=== PATIENT | female | born 1945 | race Caucasian/White ===

== ENCOUNTER → 2020-02-10 13:12 | Outpatient (BNVA) | payer MEDICARE, SELFPAY | PROVIDERS: PCP Internal Medicine; Referring Provider Internal Medicine; Visit Provider Internal Medicine Cardiovascular Disease | DX: I10 Essential (primary) hypertension (principal); Z79.899 Other long term (current) drug therapy | CPT/HCPCS: 99213 ==

== ENCOUNTER 2020-03-06 08:02 | Outpatient (REF) | payer MEDICARE, SELFPAY ==
[2020-03-06 09:41] LABS: Imm Gran Abs Auto 0.02 X10*3/uL (0.00-0.03); Imm Gran Pct Auto 0.3 % (0.0-0.4); MANUAL DIFF FLAG SCAN; Monocytes Percent Auto 8.5 % (2-11); SCAN SMEAR FLAG 1
[2020-03-06 09:43] LABS: Basophils Absolute Auto 0.1 X10*3/uL (0.0-0.2); Eosinophils Absolute Auto 0.2 X10*3/uL (0.0-0.4); Eosinophils Percent Auto 3.2 % (0-4); Hematocrit 39.9 % (37-47); Hemoglobin 12.4 g/dl (12.0-16.0); Lymphocytes Absolute Auto 2.3 X10*3/uL (1.2-4.9); Lymphocytes Percent Auto 33.2 % (20-40); Mean Corpuscular HGB Conc 31.1 g/dl (31.0-35.0); Mean Corpuscular Hemoglobin 29.9 pg (27.0-33.0); Mean Corpuscular Volume 96.1 fL (80-98); Mean Platelet Volume 14.3 fL (9.4-12.3); Monocytes Absolute Auto 0.6 X10*3/uL (0.1-1.2); Neutrophils Absolute Auto 3.8 X10*3/uL (2.0-8.3); Neutrophils Percent Auto 53.8 % (45-73); Platelet Count 121 X10*3/uL (160-400); Red Blood Count 4.15 X10*6/uL (4.20-5.50); Red Cell Distribution Width 12.2 % (11.0-16.0)
[2020-03-06 09:46] LABS: Estimated Average Glucose 154 mg/dL
[2020-03-06 10:02] LABS: PLT ABN DIST 1
[2020-03-06 10:12] LABS: Alanine Aminotransferase 35 U/L (0-31); Albumin Level 4.2 g/dL (3.5-5.0); Alkaline Phosphatase 102 U/L (39-117); Anion Gap 10 (12-20); Aspartate Amino Transferase 32 U/L (5-31); Blood Urea Nitrogen 22 mg/dL (9-16); Calcium 9.2 mg/dL (8.4-10.2); Carbon Dioxide 28 mmol/L (22-29); Chloride 107 mmol/L (96-108); Cholesterol 124 mg/dL; Estimated Glomerular Filt Rate > 60; Glucose Fasting 146 mg/dL (60-99); HDL Cholesterol 55 mg/dL; LDL Cholesterol Calculated 55 mg/dl; Potassium 4.5 mmol/l (3.3-5.1); Sodium 140 mmol/L (135-145); Triglycerides 73 mg/dL
[2020-03-06 10:19] LABS: SLIDE REVIEW VERIFIED
[2020-03-06 10:33] LABS: Vitamin D 25-OH Total 42.1 ng/mL (>30)
[2020-03-06 10:52] LABS: Glucose Urine UA NEG (NEG); Leukocyte Esterase Urine NEG (NEG); Nitrite Urine NEG (NEG); Specific Gravity - Urine >= 1.030 (1.005-1.025); Urine Blood NEG (NEG); Urine Ketones NEG (NEG); Urine Protein NEG (NEG-TRACE)
[2020-03-06 10:58] LABS: Appearance Urine HAZY; Color Urine YELLOW
[2020-03-06 11:19] LABS: Creatinine Urine 166.14 mg/dL; Microalbum/Creatinine Ratio Ur 4.8 ug/mg cr
[2020-03-06 11:21] LABS: Mucus Urine 1+ /LPF; RBC Urine 0 /HPF (0); Squamous Epithelial Cell Urine 2+ /LPF; WBC Urine 0-2 /HPF (0-4)
== END 2020-03-06 08:03 | disposition home or self-care (01) ==
LOC: HO.LAB 08:02
PROVIDERS: Visit Provider Internal Medicine
DX: E78.5 Hyperlipidemia, unspecified (principal); I10 Essential (primary) hypertension; E11.9 Type 2 diabetes mellitus without complications; I21.4 Non-ST elevation (NSTEMI) myocardial infarction; K29.70 Gastritis, unspecified, without bleeding; D69.6 Thrombocytopenia, unspecified; E55.9 Vitamin D deficiency, unspecified; E66.3 Overweight
CPT/HCPCS: 36415; 80053; 80061; 81001; 82043; 82306; 83036; 84443; 85025

== ENCOUNTER → 2020-06-15 09:30 | Outpatient (BNVA) | payer MEDICARE, SELFPAY | PROVIDERS: PCP Internal Medicine; Visit Provider Internal Medicine Cardiovascular Disease | DX: I10 Essential (primary) hypertension (principal) | CPT/HCPCS: 99212 ==

== ENCOUNTER 2020-07-08 08:35 | Outpatient (REF) | payer MEDICARE, SELFPAY ==
[2020-07-08 09:06] LABS: MANUAL DIFF FLAG NO
[2020-07-08 09:10] LABS: Basophils Absolute Auto 0.1 X10*3/uL (0.0-0.2); Basophils Percent Auto 0.9 % (0-2); Eosinophils Absolute Auto 0.3 X10*3/uL (0.0-0.4); Eosinophils Percent Auto 3.6 % (0-4); Hematocrit 39.7 % (37-47); Hemoglobin 12.1 g/dl (12.0-16.0); Imm Gran Abs Auto 0.02 X10*3/uL (0.00-0.03); Imm Gran Pct Auto 0.3 % (0.0-0.4); Lymphocytes Absolute Auto 2.1 X10*3/uL (1.2-4.9); Lymphocytes Percent Auto 26.9 % (20-40); Mean Corpuscular HGB Conc 30.5 g/dl (31.0-35.0); Mean Corpuscular Hemoglobin 29.6 pg (27.0-33.0); Mean Corpuscular Volume 97.1 fL (80-98); Mean Platelet Volume 13.8 fL (9.4-12.3); Monocytes Absolute Auto 0.6 X10*3/uL (0.1-1.2); Monocytes Percent Auto 7.6 % (2-11); Neutrophils Absolute Auto 4.7 X10*3/uL (2.0-8.3); Neutrophils Percent Auto 60.7 % (45-73); Platelet Count 120 X10*3/uL (160-400); Red Blood Count 4.09 X10*6/uL (4.20-5.50); White Blood Count 7.8 X10*3/uL (4.8-10.8)
[2020-07-08 09:33] LABS: Alanine Aminotransferase 33 U/L (0-31); Albumin Level 4.1 g/dL (3.5-5.0); Alkaline Phosphatase 97 U/L (39-117); Anion Gap 10 (12-20); Aspartate Amino Transferase 29 U/L (5-31); Bilirubin Total 1.1 mg/dL (0.0-1.0); Blood Urea Nitrogen 19 mg/dL (9-16); Calcium 9.1 mg/dL (8.4-10.2); Carbon Dioxide 28 mmol/L (22-29); Chloride 107 mmol/L (96-108); Cholesterol 118 mg/dL; Estimated Glomerular Filt Rate > 60; Glucose Fasting 172 mg/dL (60-99); HDL Cholesterol 51 mg/dL; LDL Cholesterol Calculated 50 mg/dl; Sodium 140 mmol/L (135-145); Total Protein 6.8 g/dL (6.5-8.0); Triglycerides 89 mg/dL
[2020-07-08 09:53] LABS: TSH reflex Free T4 1.63 uIU/mL (0.32-4.0); Vitamin D 25-OH Total 39.2 ng/mL (>30)
[2020-07-08 10:00] LABS: Glucose Urine UA NEG (NEG); Leukocyte Esterase Urine NEG (NEG); Nitrite Urine NEG (NEG); Specific Gravity - Urine >= 1.030 (1.005-1.025); Urine Blood NEG (NEG); Urine Ketones NEG (NEG); Urine Protein NEG (NEG-TRACE)
[2020-07-08 10:04] LABS: Appearance Urine CLEAR; Color Urine YELLOW
[2020-07-08 10:32] LABS: Creatinine Urine 158.71 mg/dL; Microalbum/Creatinine Ratio Ur 5.6 ug/mg cr
== END 2020-07-08 08:36 | disposition home or self-care (01) ==
LOC: HO.LAB 08:35
PROVIDERS: PCP Internal Medicine; Visit Provider Internal Medicine
DX: D69.6 Thrombocytopenia, unspecified (principal); I10 Essential (primary) hypertension; K29.70 Gastritis, unspecified, without bleeding; E78.00 Pure hypercholesterolemia, unspecified; I21.4 Non-ST elevation (NSTEMI) myocardial infarction; E55.9 Vitamin D deficiency, unspecified; E11.9 Type 2 diabetes mellitus without complications; E66.3 Overweight
CPT/HCPCS: 36415; 80053; 80061; 81003; 82043; 82306; 84443; 85025

== ENCOUNTER → 2020-08-17 13:51 | Outpatient (BNVA) | payer MEDICARE, SELFPAY | PROVIDERS: PCP Internal Medicine; Visit Provider Internal Medicine Cardiovascular Disease | DX: I10 Essential (primary) hypertension (principal) | CPT/HCPCS: 99212 ==

== ENCOUNTER → 2020-09-10 15:19 | Outpatient (BNVA) | payer MEDICARE, SELFPAY | PROVIDERS: PCP Internal Medicine; Visit Provider Internal Medicine Cardiovascular Disease | DX: I10 Essential (primary) hypertension (principal) | CPT/HCPCS: 99212 ==

== ENCOUNTER 2020-11-06 08:03 | Outpatient (REF) | payer MEDICARE, SELFPAY ==
[2020-11-06 09:20] LABS: Imm Gran Abs Auto 0.02 X10*3/uL (0.00-0.03); Imm Gran Pct Auto 0.3 % (0.0-0.4); MANUAL DIFF FLAG SCAN; Red Cell Distribution Width 12.2 % (11.0-16.0); SCAN SMEAR FLAG 1
[2020-11-06 09:21] LABS: Basophils Absolute Auto 0.1 X10*3/uL (0.0-0.2); Basophils Percent Auto 0.8 % (0-2); Eosinophils Absolute Auto 0.2 X10*3/uL (0.0-0.4); Eosinophils Percent Auto 2.8 % (0-4); Hematocrit 38.6 % (37-47); Lymphocytes Absolute Auto 1.9 X10*3/uL (1.2-4.9); Lymphocytes Percent Auto 26.1 % (20-40); Mean Corpuscular HGB Conc 31.1 g/dl (31.0-35.0); Mean Corpuscular Hemoglobin 29.8 pg (27.0-33.0); Mean Corpuscular Volume 95.8 fL (80-98); Monocytes Absolute Auto 0.6 X10*3/uL (0.1-1.2); Monocytes Percent Auto 8.1 % (2-11); Neutrophils Absolute Auto 4.4 X10*3/uL (2.0-8.3); Neutrophils Percent Auto 61.9 % (45-73); Platelet Count 117 X10*3/uL (160-400); Red Blood Count 4.03 X10*6/uL (4.20-5.50); White Blood Count 7.2 X10*3/uL (4.8-10.8)
[2020-11-06 09:22] LABS: PLT ABN DIST 1
[2020-11-06 09:27] LABS: Estimated Average Glucose 171 mg/dL; Hemoglobin A1c % 7.6 %
[2020-11-06 09:41] LABS: Alanine Aminotransferase 33 U/L (0-31); Albumin Level 4.1 g/dL (3.5-5.0); Alkaline Phosphatase 94 U/L (39-117); Anion Gap 11 (12-20); Aspartate Amino Transferase 27 U/L (5-31); Bilirubin Total 1.1 mg/dL (0.0-1.0); Blood Urea Nitrogen 13 mg/dL (9-16); Calcium 9.3 mg/dL (8.4-10.2); Carbon Dioxide 24 mmol/L (22-29); Chloride 110 mmol/L (96-108); Cholesterol 118 mg/dL; Estimated Glomerular Filt Rate > 60; Glucose Fasting 187 mg/dL (60-99); HDL Cholesterol 50 mg/dL; LDL Cholesterol Calculated 51 mg/dl; Potassium 4.4 mmol/L (3.3-5.1); Sodium 141 mmol/L (135-145); Total Protein 6.9 g/dL (6.5-8.0); Triglycerides 85 mg/dL
[2020-11-06 09:51] LABS: Color Urine YELLOW; Glucose Urine UA NEG (NEG); Leukocyte Esterase Urine NEG (NEG); Nitrite Urine NEG (NEG); PH 5.5 (5.0-8.0); Specific Gravity - Urine >= 1.030 (1.005-1.025); Urine Blood NEG (NEG); Urine Ketones NEG (NEG); Urine Protein NEG (NEG-TRACE)
[2020-11-06 09:52] LABS: SLIDE REVIEW VERIFIED
[2020-11-06 09:52] LABS: Appearance Urine HAZY
[2020-11-06 10:02] LABS: TSH reflex Free T4 1.43 uIU/mL (0.32-4.0); Vitamin D 25-OH Total 30.3 ng/mL (>30)
== END 2020-11-06 08:04 | disposition home or self-care (01) ==
LOC: HO.LAB 08:03
PROVIDERS: PCP Internal Medicine; Visit Provider Internal Medicine
DX: E11.9 Type 2 diabetes mellitus without complications (principal); E78.00 Pure hypercholesterolemia, unspecified; I10 Essential (primary) hypertension; E55.9 Vitamin D deficiency, unspecified; E66.3 Overweight; D69.6 Thrombocytopenia, unspecified; K29.70 Gastritis, unspecified, without bleeding; I21.4 Non-ST elevation (NSTEMI) myocardial infarction
CPT/HCPCS: 36415; 80053; 80061; 81003; 82306; 83036; 84443; 85025

== ENCOUNTER → 2021-01-18 14:27 | Outpatient (BNVA) | payer MEDICARE, SELFPAY | PROVIDERS: PCP Internal Medicine; Referring Provider Internal Medicine; Visit Provider Internal Medicine Cardiovascular Disease | DX: I10 Essential (primary) hypertension (principal) | CPT/HCPCS: 93005; 99212 ==

== ENCOUNTER 2021-01-22 08:41 | Outpatient (REF) | payer MEDICARE, SELFPAY ==
--- NOTE | ~2021-01-22 | MM_ITS ---
EXAMINATION: BONE DENSITOMETRY CLINICAL INDICATION: Asymptomatic menopausal state. COMPARISON: This is the patient's baseline examination. TECHNIQUE: Using a [employer] DXA System (software version: 13.1) manufactured by [employer], dual-energy x-ray absorptiometry was performed of the lumbar spine and left hip. The images are of good technical quality. Summary results are attached. FINDINGS: AP SPINE L1-L4: BMD 1.165 g/cm2, Z-score 1.3, T-score -0.1, normal. LEFT FEMUR, NECK: BMD 0.973 g/cm2, Z-score 1.3, T-score -0.5, normal. LEFT FEMUR, TOTAL: BMD 1.081 g/cm2, Z-score 2.1, T-score 0.6, normal. IDENTIFIED RISK FACTORS: Menopause. HISTORY OF FRACTURE: None listed. MEDICATIONS: Calcium supplement and/or multivitamin. Vitamin D. MM/XR DEXA axial skeleton IMPRESSION: 1. DIAGNOSIS: Normal bone density based on the lowest T-score value of -0.5 in the femoral neck applying World Health Organization criteria. 2. 10-YEAR FRACTURE RISK PREDICTION, FRAX: Major osteoporotic fracture (clinical spine, forearm, hip or shoulder) 4.7%. Hip fracture 0.5%. 3. Treatment Recommendations: NOF guidelines recommend consideration for treatment in postmenopausal women and men age 50 and older presenting with the following: -A hip or vertebral (clinical or morphometric) fracture. -T-score less than or equal to -2.5 at the femoral neck or spine after appropriate evaluation to exclude secondary causes. -Low bone mass at the hip or spine and a 10-year fracture probability by FRAX of greater than or equal to 3% for hip fracture or greater than or equal to 20% for major osteoporotic fracture based on the [place] adapted WHO algorithm. 4. Other Recommendations: All treatment decisions require clinical judgment and consideration of individual patient factors, including patient preferences, comorbidities, previous drug use, risk factors not captured in the FRAX model (e.g. frailty, falls, vitamin D deficiency, increased bone turnover, interval significant decline in bone density) and possible under or overestimation of fracture risk by FRAX. FUTURE SCAN RECOMMENDATION: People with diagnosed cases of osteoporosis or at high risk for fracture should have regular bone mineral density tests. For patients eligible for Medicare, routine testing is allowed once every 2 years. The testing frequency can be increased to one year for patients who have rapidly progressing disease, those who are receiving or discontinuing medical therapy to restore bone mass, or have additional risk factors.
--- NOTE | ~2021-01-22 | MM_ITS ---
EXAMINATION: MM SCREENING DIGITAL BREAST TOMOSYNTHESIS, BILATERAL CLINICAL INFORMATION: Screening. Asymptomatic. The lifetime risk of breast cancer based on the Tyrer-Cuzick Model is under 3%. COMPARISON: Mammography: 05/08/2019, 04/04/2018, 02/20/2017. TECHNIQUE: Digital breast tomosynthesis is performed in both the craniocaudal and mediolateral oblique views along with computer-aided detection (CAD). Synthesized 2D images are generated from the tomosynthesis. FINDINGS: There are scattered areas of fibroglandular density (ACR BI-RADS breast composition Category b). There are no significant masses, abnormal calcifications, or other abnormalities. Parenchymal pattern is similar to prior studies. The axilla and skin contours are unremarkable. MM/MM tomosynthesis screening BI IMPRESSION: No mammographic evidence of malignancy. ASSESSMENT: BI-RADS 1: Negative RECOMMENDATION: Routine annual mammography screening. This patient's information was entered into a reminder system with a target due date for their next mammogram.
== END 2021-01-22 08:42 | disposition home or self-care (01) ==
LOC: HO.MAMMO 08:41
PROVIDERS: Visit Provider Internal Medicine
DX: Z13.820 Encounter for screening for osteoporosis (principal); Z78.0 Asymptomatic menopausal state; Z12.31 Encounter for screening mammogram for malignant neoplasm of breast
CPT/HCPCS: 77063; 77067; 77080

== ENCOUNTER 2021-05-04 07:56 | Outpatient (REF) | payer MEDICARE, SELFPAY ==
[2021-05-04 08:17] LABS: MANUAL DIFF FLAG NO
[2021-05-04 08:33] LABS: Basophils Absolute Auto 0.1 X10*3/uL (0.0-0.2); Basophils Percent Auto 0.7 % (0-2); Eosinophils Absolute Auto 0.2 X10*3/uL (0.0-0.4); Eosinophils Percent Auto 3.1 % (0-4); Hematocrit 40.2 % (37.0-47.0); Hemoglobin 12.6 g/dl (12.0-16.0); Imm Gran Abs Auto 0.02 X10*3/uL (0.00-0.03); Imm Gran Pct Auto 0.3 % (0.0-0.4); Lymphocytes Absolute Auto 2.1 X10*3/uL (1.2-4.9); Lymphocytes Percent Auto 28.4 % (20-40); Mean Corpuscular HGB Conc 31.3 g/dl (31.0-35.0); Mean Corpuscular Hemoglobin 29.9 pg (27.0-33.0); Mean Corpuscular Volume 95.3 fL (80.0-98.0); Mean Platelet Volume 13.8 fL (9.4-12.3); Monocytes Absolute Auto 0.6 X10*3/uL (0.1-1.2); Monocytes Percent Auto 7.4 % (2-11); Neutrophils Absolute Auto 4.5 x10*3/uL (2.0-8.3); Neutrophils Percent Auto 60.1 % (45-73); Platelet Count 122 X10*3/uL (160-400); Red Blood Count 4.22 X10*6/uL (4.20-5.50); Red Cell Distribution Width 12.9 % (11.0-16.0); White Blood Count 7.5 X10*3/uL (4.8-10.8)
[2021-05-04 08:40] LABS: Estimated Average Glucose 143 mg/dL; Hemoglobin A1c % 6.6 %
[2021-05-04 08:52] LABS: Alanine Aminotransferase 28 U/L (0-31); Albumin Level 3.9 g/dL (3.5-5.0); Alkaline Phosphatase 86 U/L (39-117); Anion Gap 13 (12-20); Aspartate Amino Transferase 25 U/L (5-31); Bilirubin Total 1.1 mg/dL (0.0-1.0); Blood Urea Nitrogen 17 mg/dL (9-16); Calcium 9.7 mg/dL (8.4-10.2); Carbon Dioxide 23 mmol/L (22-29); Chloride 109 mmol/L (96-108); Cholesterol 122 mg/dL; Estimated Glomerular Filt Rate > 60; Glucose Fasting 152 mg/dL (60-99); HDL Cholesterol 49 mg/dL; LDL Cholesterol Calculated 58 mg/dl; Potassium 4.3 mmol/L (3.3-5.1); Sodium 141 mmol/L (135-145); Triglycerides 77 mg/dL
[2021-05-04 09:12] LABS: TSH reflex Free T4 1.64 uIU/mL (0.32-4.0); Vitamin D 25-OH Total 33.3 ng/mL (>30)
[2021-05-04 09:15] LABS: Appearance Urine CLEAR; Color Urine YELLOW; Glucose Urine UA NEG (NEG); Leukocyte Esterase Urine NEG (NEG); Nitrite Urine NEG (NEG); PH 5.5 (5.0-8.0); Specific Gravity - Urine >= 1.030 (1.005-1.025); Urine Blood NEG (NEG); Urine Ketones NEG (NEG); Urine Protein NEG (NEG-TRACE)
[2021-05-04 10:04] LABS: Microalbum/Creatinine Ratio Ur 7.7 ug/mg cr
== END 2021-05-04 07:57 | disposition home or self-care (01) ==
LOC: HO.LAB 07:56
PROVIDERS: PCP Internal Medicine; Visit Provider Internal Medicine
DX: I10 Essential (primary) hypertension (principal); E11.9 Type 2 diabetes mellitus without complications; E78.00 Pure hypercholesterolemia, unspecified; E55.9 Vitamin D deficiency, unspecified
CPT/HCPCS: 36415; 80053; 80061; 81003; 82043; 82306; 83036; 84443; 85025

== ENCOUNTER 2021-08-03 08:32 | Outpatient (REF) | payer MEDICARE, SELFPAY ==
[2021-08-03 08:59] LABS: MANUAL DIFF FLAG NO
[2021-08-03 09:37] LABS: Basophils Absolute Auto 0.1 X10*3/uL (0.0-0.2); Basophils Percent Auto 0.9 % (0-2); Eosinophils Absolute Auto 0.2 X10*3/uL (0.0-0.4); Eosinophils Percent Auto 2.5 % (0-4); Hematocrit 39.6 % (37.0-47.0); Hemoglobin 12.2 g/dl (12.0-16.0); Imm Gran Abs Auto 0.01 X10*3/uL (0.00-0.03); Imm Gran Pct Auto 0.1 % (0.0-0.4); Lymphocytes Absolute Auto 1.7 X10*3/uL (1.2-4.9); Lymphocytes Percent Auto 25.2 % (20-40); Mean Corpuscular HGB Conc 30.8 g/dl (31.0-35.0); Mean Corpuscular Hemoglobin 29.5 pg (27.0-33.0); Mean Corpuscular Volume 95.9 fL (80.0-98.0); Monocytes Absolute Auto 0.5 X10*3/uL (0.1-1.2); Monocytes Percent Auto 7.8 % (2-11); Neutrophils Absolute Auto 4.3 x10*3/uL (2.0-8.3); Neutrophils Percent Auto 63.5 % (45-73); Platelet Count 106 X10*3/uL (160-400); Red Blood Count 4.13 X10*6/uL (4.20-5.50); Red Cell Distribution Width 12.4 % (11.0-16.0); White Blood Count 6.8 X10*3/uL (4.8-10.8)
[2021-08-03 09:42] LABS: Estimated Average Glucose 143 mg/dL; Hemoglobin A1c % 6.6 %
[2021-08-03 10:15] LABS: Creatinine Urine 181.23 mg/dL; Microalbum/Creatinine Ratio Ur 6.6 ug/mg cr
[2021-08-03 10:19] LABS: Alanine Aminotransferase 28 U/L (0-31); Albumin Level 4.1 g/dL (3.5-5.0); Alkaline Phosphatase 93 U/L (39-117); Anion Gap 13 (12-20); Aspartate Amino Transferase 25 U/L (5-31); Blood Urea Nitrogen 19 mg/dL (9-16); Calcium 9.7 mg/dL (8.4-10.2); Carbon Dioxide 25 mmol/L (22-29); Chloride 108 mmol/L (96-108); Cholesterol 138 mg/dL; Estimated Glomerular Filt Rate > 60; Glucose Fasting 151 mg/dL (60-99); HDL Cholesterol 51 mg/dL; LDL Cholesterol Calculated 69 mg/dl; Potassium 4.6 mmol/L (3.3-5.1); Sodium 141 mmol/L (135-145); Total Protein 7.1 g/dL (6.5-8.0); Triglycerides 93 mg/dL
[2021-08-03 11:32] LABS: Folate 16.6 ng/mL (> or = 4.0); Vitamin B12 940 pg/mL (200-900)
[2021-08-08 13:31] LABS: Vitamin D 25-OH, D2 <4 ng/mL; Vitamin D 25-OH, D3 32 ng/mL; Vitamin D 25-OH, Total 32 ng/mL (30-100)
== END 2021-08-03 08:33 | disposition home or self-care (01) ==
LOC: HO.LAB 08:32
PROVIDERS: PCP Internal Medicine; Visit Provider Nurse Practitioner Acute Care
DX: D69.6 Thrombocytopenia, unspecified (principal); E11.9 Type 2 diabetes mellitus without complications; E55.9 Vitamin D deficiency, unspecified; E78.00 Pure hypercholesterolemia, unspecified
CPT/HCPCS: 36415; 80053; 80061; 82043; 82306; 82607; 82746; 83036; 85025

== ENCOUNTER → 2021-09-01 14:35 | Outpatient (BNVA) | payer MEDICARE, SELFPAY | PROVIDERS: PCP Internal Medicine; Referring Provider Internal Medicine; Visit Provider Nurse Practitioner Family | DX: I10 Essential (primary) hypertension (principal); E78.00 Pure hypercholesterolemia, unspecified; E11.9 Type 2 diabetes mellitus without complications | CPT/HCPCS: 99212 ==

== ENCOUNTER 2021-09-03 07:47 | Day surgery (SDC) | payer MEDICARE, SELFPAY ==
--- NOTE | 2021-09-02 09:45 | P.CONAN_ITS ---
Documented by User: Shreya Maria NP 09/02/21 09:47 HPI - Anesthesia Eval Consult details Narrative: 76yo F for Upper Endoscopy and Colonoscopy PMFSH Active Problems Active Problems: All Active Problems (Updated 05/10/21 @ 15:26 by Ana Santo CNP) Cervical cancer screening (Acute) Adult general medical exam (Acute) GERD (gastroesophageal reflux disease) (Acute) Low back pain (Acute) Post-menopausal (Acute) Screening for breast cancer (Acute) Screening for colon cancer (Acute) NSTEMI (non-ST elevated myocardial infarction) (Acute) Overweight (BMI 25.0-29.9) (Acute) Anxiety (Acute) Glaucoma of both eyes (Acute) Vitamin D deficiency (Acute) Thrombocytopenia (Acute) Gastritis (Acute) Type 2 diabetes mellitus without complication, with no history of insulin use (Acute) Pure hypercholesterolemia (Acute) Benign essential hypertension (Acute) HTN (hypertension) (Acute) Past Medical History Medical History Anxiety Benign essential hypertension Gastritis Glaucoma of both eyes HTN (hypertension) Low back pain NSTEMI (non-ST elevated myocardial infarction) Overweight (BMI 25.0-29.9) Post-menopausal Pure hypercholesterolemia Screening for breast cancer Screening for colon cancer Thrombocytopenia Type 2 diabetes mellitus without complication, with no history of insulin use Vitamin D deficiency Family History Family History Father CVD (cardiovascular disease) Mother CVD (cardiovascular disease) Brother CVD (cardiovascular disease) Surgical History Surgical History (Updated 08/30/21 @ 11:27 by Lesli Ingram RN) History of colonoscopy Hx of section S/P cardiac catheterization (~2019) Social History Social History Housing: House Alcohol intake: never Patient Tobacco Use Status: Never used Tobacco Second Hand Smoke Exposure: Yes Use of substances other than those prescribed or required for medical reasons: No Are you DNR?: No Advance Directives: No Advance Directives Information Provided: Yes Recently lost weight without trying: No Nutrition Risks: No Nutritional Risk service: No Current occupational status: disabled Cognitive needs: No Hearing needs: Yes Vision needs: Yes Meds Allergies Allergy/AdvReac Type Severity Reaction Status Date / Time Penicillins [PENICILLINS] Allergy Mild HIVES,RASH Verified 08/30/21 11:31 Home Medications Medication Instructions Recorded Confirmed Last Taken Type dorzolamide 22.3 mg-timolol 6.8 1 drp OPHTHALMIC (EYE) BID 02/10/20 08/30/21 Unknown History mg/mL eye drops timolol maleate 0.5 % eye drops 1 drp OPHTHALMIC (EYE) BID 02/10/20 08/30/21 Unknown History aspirin 81 mg tablet,delayed 81 mg PO DAILY 03/13/20 08/30/21 Unknown History release (Adult Low Dose Aspirin) latanoprost 0.005 % eye drops 1 drp OPHTHALMIC (EYE) BEDTIME 08/17/20 08/30/21 Unknown History Exam Exam Date and Time: September 02, 2021 0945 Pertinent Lab Results Pertinent Lab Results: Laboratory Tests 08/03/21 08/03/21 08:48 08:48 WBC 6.8 Hgb 12.2 Hct 39.6 Plt Count 106 L Sodium 141 Potassium 4.6 Chloride 108 Carbon Dioxide 25 BUN 19 H Creatinine 0.82 Narrative Narrative: EKG 12/2020 Sinus rhythm 71 beats per minute, T-wave inversions V1 to V3 with differentials of ischemia,? QTC of 400 milliseconds. Assessment and Plan Assessment Anesthesia Assessment: Chart Reviewed Documented by User: Phyllis Avalos MD 09/03/21 08:59 [facility] Past Medical History Medical History Anxiety Benign essential hypertension Gastritis Glaucoma of both eyes HTN (hypertension) Low back pain NSTEMI (non-ST elevated myocardial infarction) Overweight (BMI 25.0-29.9) Post-menopausal Pure hypercholesterolemia Screening for breast cancer Screening for colon cancer Thrombocytopenia Type 2 diabetes mellitus without complication, with no history of insulin use Vitamin D deficiency Family History Family History Father CVD (cardiovascular disease) Mother CVD (cardiovascular disease) Brother CVD (cardiovascular disease) Family history of problems with anesthesia: No Surgical History Surgical History (Updated 08/30/21 @ 11:27 by Lesli Ingram RN) History of colonoscopy Hx of section S/P cardiac catheterization (~2018) History of Problems with Anesthesia: No Social History Social History Housing: House Alcohol intake: never Patient Tobacco Use Status: Never used Tobacco Second Hand Smoke Exposure: Yes Use of substances other than those prescribed or required for medical reasons: No Are you DNR?: No Advance Directives: No Advance Directives Information Provided: Yes Recently lost weight without trying: No Nutrition Risks: No Nutritional Risk service: No Current occupational status: disabled Cognitive needs: No Hearing needs: Yes Vision needs: Yes Meds Allergies Allergy/AdvReac Type Severity Reaction Status Date / Time Penicillins [PENICILLINS] Allergy Mild HIVES,RASH Verified 08/30/21 11:31 Home Medications Medication Instructions Recorded Confirmed Last Taken Type dorzolamide 22.3 mg-timolol 6.8 1 drp OPHTHALMIC (EYE) BID 02/10/20 08/30/21 Unknown History mg/mL eye drops timolol maleate 0.5 % eye drops 1 drp OPHTHALMIC (EYE) BID 02/10/20 08/30/21 Unknown History aspirin 81 mg tablet,delayed 81 mg PO DAILY 03/13/20 08/30/21 Unknown History release (Adult Low Dose Aspirin) latanoprost 0.005 % eye drops 1 drp OPHTHALMIC (EYE) BEDTIME 08/17/20 08/30/21 Unknown History Exam Airway Mallampati Class: II TM Dist: >3cm Neck ROM: Full Assessment and Plan Assessment Anesthesia Assessment: Anesthesia Plan Discussed Final Anesthetic Review Family History of Problems with Anesthesia: No History of Problems with Anesthesia: No NPO: Yes ASA Class: III Final Preanesthetic Review: No Changes in Pt Med Stat, Meds/Allgs Chart Reviewed, Consent Obtained/Reviewed and Anes Risks/Benef Reviewed Patient Risk: Intermediate Procedure Risk: Low Anesthetic Plan Anesthetic Plan: MAC: Disposition: Standard PACU
[2021-09-03 08:26] VITALS: BMI 29.9
[2021-09-03 08:51] VITALS: BP 140/60; PULSE 70; RESP 16; TEMP 36.4; O2SAT 97
[2021-09-03] MEDS: Lactated Ringers 1,000 ML 100 ML IVCONT (09:08)
[2021-09-03 09:12] LABS: Glucose, Whole Blood 146 mg/dL (60-115)
[2021-09-03 10:30] VITALS: BP 99/53; PULSE 74; RESP 12; TEMP 36.1; O2SAT 99
--- NOTE | 2021-09-03 10:31 | PM.OP ---
Brief Operative Note Date of Service: 09/03/21 Pre-op diagnosis: GERD, Screening Post-op diagnosis: other (Hiatal hernia, Colon polyps) Procedure: EGD, Colonoscopy to the cecum and TI with hot snare polypectomy of AC polyp, and bx/removal of polyp Surgeon: Zachariah Mitchell Anesthesia: MAC Was an Service Associate used for this Procedure?: No Estimated blood loss (mL): 2.0 Pathology: other (A. Polyp at 60cm B. Ascending colon polyp) Condition: stable Disposition: PACU
[2021-09-03 10:45] VITALS: BP 128/61; PULSE 79; RESP 16; O2SAT 98
[2021-09-03 11:00] VITALS: BP 153/75; PULSE 68; RESP 16; TEMP 36.2; O2SAT 98
--- NOTE | 2021-09-03 21:27 | OP_ITS ---
SURGEON: Zachariah Mitchell MD INDICATIONS: The patient presents for evaluation of gastroesophageal reflux, personal history of tubular adenoma of the colon, and colorectal cancer screening. Full consent was obtained from her for this, including risks of bleeding and perforation. PREOPERATIVE DIAGNOSIS: POSTOPERATIVE DIAGNOSIS: PROCEDURE PERFORMED: ESTIMATED BLOOD LOSS: COMPLICATIONS: ANESTHESIA: Monitored anesthesia care. ASSISTANTS: SPECIMENS: PROCEDURES: Esophagogastroduodenoscopy and colonoscopy to the cecum and terminal ileum with hot snare polypectomy, and biopsy removal of polyp. PREOPERATIVE DIAGNOSES: Gastroesophageal reflux, colorectal cancer screening, personal history of tubular adenoma of the colon. POSTOPERATIVE DIAGNOSES: Gastroesophageal reflux, colorectal cancer screening, personal history of tubular adenoma of the colon, hiatal hernia, colon polyps, diverticulosis, and internal hemorrhoids. DESCRIPTION OF PROCEDURE: The patient was placed in the left lateral decubitus position. The Olympus video gastroscope was passed in the posterior oropharynx and upper esophagus under direct vision. The scope was passed slowly into the distal esophagus. The gastroesophageal junction appeared normal at 35 cm. There was no sign of any esophagitis nor Bentley esophagus. The scope into the stomach. There was a small hiatal hernia. The scope was advanced to the pylorus and the duodenum was cannulated to the descending portion. The duodenum including the bulb appeared normal without mass or ulceration. The scope was withdrawn back from the stomach. The gastric antrum and body appeared normal with good peristalsis. The scope was retroflexed visualizing the proximal stomach carefully, which appeared normal, without any sign of mass or ulceration. Scope was straightened and withdrawn back form the esophagus. The esophageal mucosa appeared normal. The scope was withdrawn back from the patient. She was turned around for the colonoscopy. The digital rectal exam revealed no abnormalities. The Olympus video pediatric colonoscope was entered into the rectum and advanced easily to the cecum. Once in the cecum, I did identify normal-appearing cecal pouch with appendiceal orifice and a normal-appearing ileocecal valve. The terminal ileum was cannulated and appeared normal. The scope was withdrawn back in the colon. The entire cecum and ileocecal valve appeared normal. The scope was slowly withdrawn assessing all mucosal surfaces carefully. Preparation was excellent. In the proximal ascending colon, there was an approximately 10 mm polyp, which was removed by hot snare polypectomy and recovered by suction. The polypectomy site appeared clean, without any sign of residual polyp nor bleeding. At 60 cm, was an approximately 4 mm polyp, which was biopsied and completely removed with cold biopsy forceps. I did not visualize any other polyps, colitis, or angiodysplasia. There was a mild amount of sigmoid diverticulosis. In the rectum, scope was retroflexed visualizing internal hemorrhoids, but no other pathology. The rectal mucosa appeared normal. The scope was straightened and withdrawn from the patient. She tolerated both procedures well and was returned to recovery area in stable condition. IMPRESSION: 1. Colon polyps. 2. Diverticulosis. 3. Internal hemorrhoids. 4. Hiatal hernia. PLAN: The results of the pathology will be checked. She was advised to continue her omeprazole for reflux. She was advised not to use any aspirin and NSAIDs for 1 week. Given her age and these findings, I do not think, she will need any further screening colonoscopies. She will see me on a p.r.n. basis. MD ABENA Johnson/ROZ / [phone]
== END 2021-09-03 11:27 | disposition home or self-care (01) ==
PROVIDERS: PCP Internal Medicine; Visit Provider Internal Medicine
PROC: (CPT 45385; principal; 2021-09-03 09:10)
DX: Z12.11 Encounter for screening for malignant neoplasm of colon (principal); Z86.010 Personal history of colon polyps; D12.2 Benign neoplasm of ascending colon; D12.4 Benign neoplasm of descending colon; K57.30 Diverticulosis of large intestine without perforation or abscess without bleeding; K64.8 Other hemorrhoids; K21.9 Gastro-esophageal reflux disease without esophagitis; R10.13 Epigastric pain; K44.9 Diaphragmatic hernia without obstruction or gangrene; I10 Essential (primary) hypertension; H40.9 Unspecified glaucoma; E78.5 Hyperlipidemia, unspecified; E55.9 Vitamin D deficiency, unspecified; I25.2 Old myocardial infarction; D69.6 Thrombocytopenia, unspecified; E11.9 Type 2 diabetes mellitus without complications; Z79.84 Long term (current) use of oral hypoglycemic drugs; Z79.82 Long term (current) use of aspirin; Z79.899 Other long term (current) drug therapy; Z88.0 Allergy status to penicillin
CPT/HCPCS: 45385; 45380; 43235; 82947; 88305; J3010

== ENCOUNTER 2021-09-06 07:56 | Outpatient (REF) | payer MEDICARE, SELFPAY ==
--- NOTE | ~2021-09-06 | US_ITS ---
EXAMINATION: US ABDOMEN COMPLETE CLINICAL INFORMATION: Abdominal discomfort. COMPARISON: None TECHNIQUE: Real-time imaging of the abdominal viscera. FINDINGS: PANCREAS: Pancreatic duct is dilated measuring up to 3 mm, this raise concern for possible obstructing lesion. ABDOMINAL AORTA: The proximal, mid, and distal segments are normal in caliber. INFERIOR VENA CAVA: Visualized portions are normal. LIVER: Increased echogenicity of the liver parenchyma, this can be seen in the setting of hepatic steatosis or liver parenchymal disease. The liver is normal in size. The liver contour is normal. No focal hepatic lesion. There is no intrahepatic biliary duct dilatation seen. GALLBLADDER: There are echogenic structures adherent to the gallbladder wall likely a polyp 7 x 5 x 7 mm. The gallbladder is physiologically distended without evidence of stones, sludge, wall thickening or pericholecystic fluid. COMMON BILE DUCT: Normal in caliber measuring 0.6 cm in diameter. RIGHT KIDNEY: There is a parapelvic cyst 1 x 0.7 x 1.1 cm. There are vascular calcifications. No hydronephrosis. No renal calculi or focal parenchymal lesions. The kidney measures 10.2 cm in maximum dimension. LEFT KIDNEY: There are simple cyst middle pole 1.4 x 1.2 x 1.1 cm and middle pole 0.4 x 0.4 x 0.4 cm. No hydronephrosis. No renal calculi or focal parenchymal lesions. The kidney measures 11 cm in maximum dimension. SPLEEN: Normal. The spleen measures 9.6 cm in maximum dimension. Echogenic structure in the spleen probably granuloma, this probably of no clinical significance. FREE FLUID: None. US/US abdomen complete IMPRESSION: *Mildly dilated pancreatic duct measure up to 3 mm, although could be chronic due to pancreatitis, this RAISE CONCERN FOR POSSIBLE UNDERLYING PANCREATIC OBSTRUCTING LESION, would recommend correlation with cross-sectional imaging preferably MRI or CT scan with contrast pancreas protocol. *Echogenic structure adherent to the gallbladder wall likely a polyp 7 mm. Attention to follow-up imaging in 6 month recommended. *Bilateral renal cysts. (Referring physician staff is being called, to be alerted of the above findings and recommendations.) DC
== END 2021-09-06 07:57 | disposition home or self-care (01) ==
LOC: HO.US 07:56
PROVIDERS: Visit Provider Internal Medicine
DX: R10.13 Epigastric pain (principal)
CPT/HCPCS: 76700

== ENCOUNTER 2021-10-08 08:11 | Outpatient (REF) | payer MEDICARE, SELFPAY ==
[2021-10-08 09:42] LABS: Alanine Aminotransferase 28 U/L (0-31); Albumin Level 4.3 g/dL (3.5-5.0); Alkaline Phosphatase 91 U/L (39-117); Aspartate Amino Transferase 23 U/L (5-31); Bilirubin Direct 0.4 mg/dL (0.0-0.5); Blood Urea Nitrogen 17 mg/dL (9-16); Estimated Glomerular Filt Rate > 60; Lipase 33 U/L (8-78); Total Protein 7.3 g/dL (6.5-8.0)
[2021-10-08 09:46] LABS: Amylase 55 U/L (28-100)
[2021-10-12 08:56] LABS: Carbohydrate Antigen 19-9 21 U/mL (<34)
== END 2021-10-08 08:12 | disposition home or self-care (01) ==
LOC: HO.LAB 08:11
PROVIDERS: PCP Internal Medicine; Visit Provider Internal Medicine
DX: Q45.3 Other congenital malformations of pancreas and pancreatic duct (principal)
CPT/HCPCS: 36415; 80076; 82150; 82565; 83690; 84520; 86301

== ENCOUNTER 2021-10-11 10:21 | Outpatient (REF) | payer MEDICARE, SELFPAY ==
--- NOTE | ~2021-10-11 | MR_ITS ---
EXAMINATION: MR ABDOMEN WITHOUT AND WITH CONTRAST CLINICAL INFORMATION: Abnormal pancreatic duct COMPARISON: Abdominal ultrasound 09/06/2021 TECHNIQUE: MR abdomen was performed without and with use of 7.5 mL intravenous Gadavist gadolinium contrast. Postcontrast images are performed in multiphase dynamic sequences. Imaging was performed in 3 planes. Heavily T2 weighted MRCP sequences were also obtained. FINDINGS: Exam is technically limited by the [id number] and on most sequences including the dynamic postcontrast sequences the upper portion of the liver and spleen were not included on the [id number]. LUNG BASES: The visualized lung bases are unremarkable. KIDNEYS AND URETERS: Benign-appearing T2 hyperintense bilateral renal cysts, no imaging follow-up recommended. GALLBLADDER: Probable adenomyomatosis of the gallbladder fundus. LIVER AND BILIARY TREE: Loss of signal on opposed phase imaging compatible with hepatic steatosis. A 1.3 cm arterially hyperenhancing lesion in hepatic segment 6, 100:27, which is T1 isointense, fades to isointensity on remainder of phases and is T2 isointense. No intra or extrahepatic biliary duct dilatation., Common bile duct measures 4 mm with no intraluminal filling defect suggest choledocholithiasis. PANCREAS: Pancreatic duct measures up to 3 mm which is within upper limits of normal. No pancreatic mass. No variant pancreatic ductal anatomy. SPLEEN: Tiny subcentimeter hypoenhancing lesion in the medial aspect of the spleen too small to characterize, possibly tiny calcified granuloma. ADRENAL GLANDS: Unremarkable GASTROINTESTINAL TRACT: Unremarkable. LYMPH NODES: No lymphadenopathy. VASCULAR: Unremarkable ABDOMINAL WALL: Unremarkable. OSSEOUS STRUCTURES: T2 hyperintense intrinsically T1 hyperintense lesion in L3 which may reflect a hemangioma. MR/MR abdomen wo/w con IMPRESSION: Pancreatic duct measures up to 3 mm which is within upper limits of normal. No pancreatic mass. Background of hepatic steatosis with a 1.3 cm indeterminate arterially hyperenhancing lesion in the liver which is isointense on the remainder of phases. Differential considerations would include focal nodular hyperplasia, hepatic adenoma, or possibly transient hepatic intensity difference. Hypervascular metastasis would be less likely in the absence of any known history of malignancy with propensity for hypervascular metastases to the liver, such as melanoma. Given the background of underlying liver disease recommend a 3 to six-month follow-up MR to assess stability stability with Eovist contrast to help differentiate hepatic adenoma from focal nodular hyperplasia.
== END 2021-10-11 10:22 | disposition home or self-care (01) ==
LOC: HO.MRI 10:21
PROVIDERS: Visit Provider Internal Medicine
DX: Q45.3 Other congenital malformations of pancreas and pancreatic duct (principal)
CPT/HCPCS: 74183; A9585

== ENCOUNTER 2021-11-03 08:17 | Outpatient (REF) | payer MEDICARE, SELFPAY ==
[2021-11-03 09:27] LABS: Amylase 62 U/L (28-100)
[2021-11-03 09:39] LABS: Alanine Aminotransferase 30 U/L (0-31); Albumin Level 4.1 g/dL (3.5-5.0); Alkaline Phosphatase 99 U/L (39-117); Aspartate Amino Transferase 28 U/L (5-31); Bilirubin Direct 0.5 mg/dL (0.0-0.5); Blood Urea Nitrogen 14 mg/dL (9-16); Estimated Glomerular Filt Rate > 60; Lipase 38 U/L (8-78)
[2021-11-06 10:16] LABS: Carbohydrate Antigen 19-9 12 U/mL (<34)
== END 2021-11-03 08:18 | disposition home or self-care (01) ==
LOC: HO.LAB 08:17
PROVIDERS: PCP Internal Medicine; Visit Provider Internal Medicine
DX: Q45.3 Other congenital malformations of pancreas and pancreatic duct (principal)
CPT/HCPCS: 36415; 80076; 82150; 82565; 83690; 84520; 86301

== ENCOUNTER 2022-02-04 08:08 | Outpatient (REF) | payer MEDICARE, SELFPAY ==
[2022-02-04 08:26] LABS: MANUAL DIFF FLAG NO
[2022-02-04 08:55] LABS: Basophils Absolute Auto 0.1 X10*3/uL (0.0-0.2); Basophils Percent Auto 0.9 % (0-2); Eosinophils Absolute Auto 0.2 X10*3/uL (0.0-0.4); Hematocrit 38.6 % (37.0-47.0); Hemoglobin 12.3 g/dl (12.0-16.0); Imm Gran Abs Auto 0.02 X10*3/uL (0.00-0.03); Imm Gran Pct Auto 0.3 % (0.0-0.4); Lymphocytes Absolute Auto 2.3 X10*3/uL (1.2-4.9); Lymphocytes Percent Auto 30.2 % (20-40); Mean Corpuscular HGB Conc 31.9 g/dl (31.0-35.0); Mean Corpuscular Hemoglobin 29.9 pg (27.0-33.0); Mean Corpuscular Volume 93.9 fL (80.0-98.0); Monocytes Absolute Auto 0.6 X10*3/uL (0.1-1.2); Monocytes Percent Auto 7.9 % (2-11); Neutrophils Absolute Auto 4.4 x10*3/uL (2.0-8.3); Neutrophils Percent Auto 57.7 % (45-73); Platelet Count 121 X10*3/uL (160-400); Red Blood Count 4.11 X10*6/uL (4.20-5.50); Red Cell Distribution Width 12.4 % (11.0-16.0); White Blood Count 7.7 X10*3/uL (4.8-10.8)
[2022-02-04 09:27] LABS: Estimated Average Glucose 154 mg/dL
[2022-02-04 09:36] LABS: Alanine Aminotransferase 26 U/L (0-31); Albumin Level 4.2 g/dL (3.5-5.0); Alkaline Phosphatase 85 U/L (39-117); Anion Gap 16 (12-20); Aspartate Amino Transferase 25 U/L (5-31); Bilirubin Total 0.9 mg/dL (0.0-1.0); Blood Urea Nitrogen 18 mg/dL (9-16); Calcium 9.7 mg/dL (8.4-10.2); Carbon Dioxide 22 mmol/L (22-29); Chloride 107 mmol/L (96-108); Estimated Glomerular Filt Rate > 60; Glucose Fasting 175 mg/dL (60-99); Potassium 4.4 mmol/L (3.3-5.1); Sodium 141 mmol/L (135-145)
[2022-02-04 09:47] LABS: Cholesterol 117 mg/dL; HDL Cholesterol 51 mg/dL; LDL Cholesterol Calculated 39 mg/dl; Triglycerides 135 mg/dL
[2022-02-04 09:49] LABS: TSH reflex Free T4 1.67 uIU/mL (0.32-4.0); Vitamin D 25-OH Total 31.6 ng/mL (>30)
[2022-02-04 09:52] LABS: Appearance Urine Clear; Color Urine Dark Yellow; Glucose Urine UA Negative (Negative); Leukocyte Esterase Urine Negative (Negative); Nitrite Urine Negative (Negative); Urine Blood Negative (Negative); Urine Ketones Negative (Negative); Urine Protein Negative (Neg-Trace)
[2022-02-04 10:16] LABS: Creatinine Urine 227.77 mg/dL; Microalbum/Creatinine Ratio Ur 6.5 ug/mg cr
== END 2022-02-04 08:09 | disposition home or self-care (01) ==
LOC: HO.LAB 08:08
PROVIDERS: PCP Internal Medicine; Visit Provider Internal Medicine
DX: E78.00 Pure hypercholesterolemia, unspecified (principal); E11.9 Type 2 diabetes mellitus without complications; E55.9 Vitamin D deficiency, unspecified; I10 Essential (primary) hypertension
CPT/HCPCS: 36415; 80053; 80061; 81003; 82043; 82306; 83036; 84443; 85025

== ENCOUNTER 2022-03-18 09:21 | Outpatient (REF) | payer MEDICARE, MEDICAID, SELFPAY ==
--- NOTE | ~2022-03-18 | MR_ITS ---
EXAMINATION: MR ABDOMEN WITHOUT AND WITH CONTRAST CLINICAL INFORMATION: Follow up liver lesion. COMPARISON: Previous MRI most recent September 2021 and abdominal ultrasound August 2021. TECHNIQUE: MR abdomen was performed without and with use of 7.5 mL intravenous Eovist contrast. Postcontrast images are performed in multiphase dynamic sequences. Imaging was performed in 3 planes. FINDINGS: LUNG BASES: The visualized lung bases are unremarkable. LIVER, GALLBLADDER, AND BILIARY TREE: The 1.3 cm early phase arterial enhancing lesion is stable axial image 55 series 100 postcontrast. This is not appreciated on later contrast enhanced sequences. This is not appreciated on precontrast sequences. The liver is normal in size, shape and attenuation. There may be adenomyosis of the fundus of the gallbladder. The gallbladder is otherwise normal. There is no biliary duct dilatation. PANCREAS: Unremarkable. The main pancreatic duct is upper normal in size measuring 3 mm similar to previous exam. SPLEEN: Normal. ADRENAL GLANDS: Normal. KIDNEYS AND URETERS: The kidneys are normal in size, shape, and enhance symmetrically. Bilateral renal cysts. No hydronephrosis. No perinephric stranding. GASTROINTESTINAL TRACT: No bowel obstruction. No ascites or fluid collection. ABDOMINAL WALL: No significant hernia is appreciated. LYMPH NODES: No lymphadenopathy. VASCULAR: Unremarkable. OSSEOUS STRUCTURES: Stable probable hemangioma in the L3 vertebral body. Marrow signal is otherwise normal. MR/MR abdomen wo/w con IMPRESSION: 1.3 cm early arterial phase enhancing area in the posterior segment of the right lobe of the liver similar to September 2021 exam. This is not appreciated on precontrast sequences or on later postcontrast sequences. This may represent a transient perfusion effect. Probable adenomyosis of the gallbladder fundus. Bilateral renal cysts. Upper normal-size main pancreatic duct similar to previous exams.
[2022-03-18] MEDS: Gadoxetate Disodium 10 ML VIAL IVPUSH (10:47)
== END 2022-03-18 09:22 | disposition home or self-care (01) ==
LOC: HO.MRI 09:21
PROVIDERS: Visit Provider Internal Medicine
DX: R93.2 Abnormal findings on diagnostic imaging of liver and biliary tract (principal)
CPT/HCPCS: 74183; A9581

== ENCOUNTER 2022-06-17 08:02 | Outpatient (REF) | payer MEDICARE, MEDICAID, SELFPAY ==
[2022-06-17 08:14] LABS: MANUAL DIFF FLAG NO
[2022-06-17 08:36] LABS: Appearance Urine Cloudy; Color Urine Dark Yellow; Glucose Urine UA Negative (Negative); Leukocyte Esterase Urine Small (1+) (Negative); Nitrite Urine Negative (Negative); UMIC TRIGGER UACC YES; Urine Blood Negative (Negative); Urine Ketones Negative (Negative); Urine Protein Trace mg/dL (Neg-Trace)
[2022-06-17 08:43] LABS: Basophils Absolute Auto 0.1 X10*3/uL (0.0-0.2); Basophils Percent Auto 0.6 % (0-2); Eosinophils Absolute Auto 0.3 X10*3/uL (0.0-0.4); Eosinophils Percent Auto 3.1 % (0-4); Hematocrit 38.8 % (37.0-47.0); Hemoglobin 12.2 g/dl (12.0-16.0); Imm Gran Abs Auto 0.03 X10*3/uL (0.00-0.03); Imm Gran Pct Auto 0.4 % (0.0-0.4); Lymphocytes Absolute Auto 2.1 X10*3/uL (1.2-4.9); Lymphocytes Percent Auto 25.4 % (20-40); Mean Corpuscular HGB Conc 31.4 g/dl (31.0-35.0); Mean Corpuscular Hemoglobin 29.3 pg (27.0-33.0); Mean Corpuscular Volume 93.3 fL (80.0-98.0); Monocytes Absolute Auto 0.7 X10*3/uL (0.1-1.2); Monocytes Percent Auto 8.6 % (2-11); Neutrophils Absolute Auto 5.2 x10*3/uL (2.0-8.3); Neutrophils Percent Auto 61.9 % (45-73); Platelet Count 122 X10*3/uL (160-400); Red Blood Count 4.16 X10*6/uL (4.20-5.50); Red Cell Distribution Width 12.5 % (11.0-16.0); White Blood Count 8.4 X10*3/uL (4.8-10.8)
[2022-06-17 08:47] LABS: Bacteria Urine 2+ (None Seen); Hyaline Casts Urine 0-2 /LPF (0-2); RBC Urine 0-2 /HPF (0-2); UACC Culture Trigger YES
[2022-06-17 08:49] LABS: Estimated Average Glucose 186 mg/dL; Hemoglobin A1c % 8.1 %
[2022-06-17 09:03] LABS: Creatinine Urine 199.81 mg/dL; Microalbum/Creatinine Ratio Ur 11.5 ug/mg cr
[2022-06-17 09:09] LABS: Alanine Aminotransferase 24 U/L (0-31); Alkaline Phosphatase 88 U/L (39-117); Anion Gap 14 (12-20); Aspartate Amino Transferase 25 U/L (5-31); Bilirubin Total 1.5 mg/dL (0.0-1.0); Blood Urea Nitrogen 18 mg/dL (9-16); Calcium 9.2 mg/dL (8.4-10.2); Carbon Dioxide 22 mmol/L (22-29); Chloride 109 mmol/L (96-108); Cholesterol 120 mg/dL; Estimated Glomerular Filt Rate > 60; Glucose Fasting 201 mg/dL (60-99); HDL Cholesterol 50 mg/dL; LDL Cholesterol Calculated 54 mg/dl; Potassium 4.4 mmol/L (3.3-5.1); Sodium 141 mmol/L (135-145); Total Protein 6.7 g/dL (6.5-8.0); Triglycerides 81 mg/dL
[2022-06-17 09:28] LABS: TSH reflex Free T4 1.66 uIU/mL (0.32-4.0); Vitamin D 25-OH Total 30.4 ng/mL (>30)
== END 2022-06-17 08:03 | disposition home or self-care (01) ==
LOC: HO.LAB 08:02
PROVIDERS: PCP Internal Medicine; Visit Provider Internal Medicine
DX: R30.0 Dysuria (principal); E55.9 Vitamin D deficiency, unspecified; E78.00 Pure hypercholesterolemia, unspecified; E11.9 Type 2 diabetes mellitus without complications; I10 Essential (primary) hypertension
CPT/HCPCS: 36415; 80053; 80061; 81001; 82043; 82306; 83036; 84443; 85025; 87086

== ENCOUNTER → 2022-07-07 14:03 | Outpatient (BNVA) | payer MEDICARE, MEDICAID, SELFPAY | PROVIDERS: PCP Internal Medicine; Referring Provider Internal Medicine; Visit Provider Nurse Practitioner Family | DX: I10 Essential (primary) hypertension (principal); I25.2 Old myocardial infarction; E78.00 Pure hypercholesterolemia, unspecified; E11.9 Type 2 diabetes mellitus without complications; Z79.899 Other long term (current) drug therapy | CPT/HCPCS: 93005; 99212 ==

== ENCOUNTER → 2022-09-28 08:49 | Outpatient (BNVA) | payer MEDICARE, MEDICAID, SELFPAY | PROVIDERS: PCP Internal Medicine; Visit Provider Dietitian, Registered | DX: E11.9 Type 2 diabetes mellitus without complications (principal); Z79.4 Long term (current) use of insulin; Z71.3 Dietary counseling and surveillance | CPT/HCPCS: 97802 ==

== ENCOUNTER 2022-10-18 07:57 | Outpatient (REF) | payer MEDICARE, MEDICAID, SELFPAY ==
[2022-10-18 08:13] LABS: MANUAL DIFF FLAG NO
[2022-10-18 08:19] LABS: Basophils Absolute Auto 0.1 X10*3/uL (0.0-0.2); Basophils Percent Auto 0.7 % (0-2); Eosinophils Absolute Auto 0.2 X10*3/uL (0.0-0.4); Eosinophils Percent Auto 3.1 % (0-4); Hematocrit 37.9 % (37.0-47.0); Hemoglobin 11.6 g/dl (12.0-16.0); Imm Gran Abs Auto 0.01 X10*3/uL (0.00-0.03); Imm Gran Pct Auto 0.1 % (0.0-0.4); Lymphocytes Absolute Auto 1.9 X10*3/uL (1.2-4.9); Mean Corpuscular HGB Conc 30.6 g/dl (31.0-35.0); Mean Corpuscular Hemoglobin 29.5 pg (27.0-33.0); Mean Corpuscular Volume 96.4 fL (80.0-98.0); Monocytes Absolute Auto 0.6 X10*3/uL (0.1-1.2); Monocytes Percent Auto 7.6 % (2-11); Neutrophils Absolute Auto 4.8 x10*3/uL (2.0-8.3); Neutrophils Percent Auto 63.5 % (45-73); Platelet Count 122 X10*3/uL (160-400); Red Blood Count 3.93 X10*6/uL (4.20-5.50); Red Cell Distribution Width 13.2 % (11.0-16.0); White Blood Count 7.5 X10*3/uL (4.8-10.8)
[2022-10-18 08:37] LABS: Estimated Average Glucose 114 mg/dL; Hemoglobin A1c % 5.6 %
[2022-10-18 09:03] LABS: Appearance Urine Clear; Color Urine Yellow; Glucose Urine UA Negative (Negative); Leukocyte Esterase Urine Small (1+) (Negative); Nitrite Urine Negative (Negative); UMIC TRIGGER UACC YES; Urine Blood Negative (Negative); Urine Ketones Negative (Negative); Urine Protein Negative (Neg-Trace)
[2022-10-18 09:19] LABS: Bacteria Urine None Seen (None Seen); Hyaline Casts Urine 0-2 /LPF (0-2); RBC Urine 0-2 /HPF (0-2); UACC Culture Trigger YES; WBC Urine 0-5 /HPF (0-5)
[2022-10-18 09:20] LABS: Alanine Aminotransferase 24 U/L (0-31); Albumin Level 4.1 g/dL (3.5-5.0); Alkaline Phosphatase 81 U/L (39-117); Anion Gap 14 (12-20); Aspartate Amino Transferase 25 U/L (5-31); Blood Urea Nitrogen 16 mg/dL (9-16); Calcium 9.7 mg/dL (8.4-10.2); Carbon Dioxide 23 mmol/L (22-29); Chloride 112 mmol/L (96-108); Cholesterol 110 mg/dL; Estimated Glomerular Filt Rate > 60; Glucose Fasting 107 mg/dL (60-99); HDL Cholesterol 46 mg/dL; LDL Cholesterol Calculated 51 mg/dl; Potassium 4.7 mmol/L (3.3-5.1); Sodium 144 mmol/L (135-145); Triglycerides 67 mg/dL
[2022-10-18 09:29] LABS: TSH reflex Free T4 1.53 uIU/mL (0.32-4.0); Vitamin D 25-OH Total 34.8 ng/mL (>30)
[2022-10-18 09:59] LABS: Creatinine Urine 151.64 mg/dL; Microalbum/Creatinine Ratio Ur 7.2 ug/mg cr
== END 2022-10-18 07:58 | disposition home or self-care (01) ==
LOC: HO.LAB 07:57
PROVIDERS: PCP Internal Medicine; Visit Provider Internal Medicine
DX: E78.00 Pure hypercholesterolemia, unspecified (principal); E11.9 Type 2 diabetes mellitus without complications; E55.9 Vitamin D deficiency, unspecified; I10 Essential (primary) hypertension; R30.0 Dysuria
CPT/HCPCS: 36415; 80053; 80061; 81001; 81003; 82043; 82306; 83036; 84443; 85025; 87086

== ENCOUNTER 2023-01-16 09:16 | Outpatient (AMB) | payer MEDICARE, MEDICAID, SELFPAY ==
[2023-01-16 09:32] VITALS: BMI 28.2
--- NOTE | 2023-01-16 09:32 | A.OFFVIS_ITS ---
Intake VS Expanded 01/16/23 09:32 01/16/23 10:20 Height 5 ft 3 in 5 ft 3 in Weight 159 lb 2.78 oz 159 lb BMI 28.2 28.2 Intake Visit Reasons: DM Allergies Penicillins [PENICILLINS] Allergy (Mild, Verified 10/24/22 11:18) HIVES,RASH HPI Nutrition Presentation Details Pt presents for MNT f/u for t2DM Pt reports doing well, working on reducing portion sizes of carbs and desserts types of foods B: 2 boiled eggs with wheat toast and coffe e/black L: Reports having Glucerna 2-3 a week or fruit D: chicken sandwich with cheese and lettuce ,water or brown rice with chicken or fish walking 30 minutes 3 times/wk takes centrum silver mvi and vitamin D water 16 oz 3 times a day physical activity : sedentary YUB-Hgznuff-Qo.Jeor Equation Height 5 ft 3 in Weight 159 lb Resting Metabolic Rate 1180.78 Calculated Activity Level Sedentary Calories Needed to Maintain Weight 1416.94 Most Recent Diabetes Results: Microalb/Creat Ratio 7.2 ug/mg cr 10/18/22 Cholesterol 110 mg/dL 10/18/22 HDL Cholesterol 46 mg/dL 10/18/22 Triglycerides 67 mg/dL 10/18/22 Creatinine 0.81 mg/dL (0.5-1.4) 10/18/22 Blood Urea Nitrogen 16 mg/dL (9-16) 10/18/22 Sodium 144 mmol/L (135-145) 10/18/22 Potassium 4.7 mmol/L (3.3-5.1) 10/18/22 Chloride 112 mmol/L (96-108) H 10/18/22 Carbon Dioxide 23 mmol/L (22-29) 10/18/22 Calcium 9.7 mg/dL (8.4-10.2) 10/18/22 AST 25 U/L (5-31) 10/18/22 ALT 24 U/L (0-31) 10/18/22 Total Protein 7.0 g/dL (6.5-8.0) 10/18/22 Albumin 4.1 g/dL (3.5-5.0) 10/18/22 FORMERLY [facility], [facility] Medical History Anxiety Benign essential hypertension Gastritis Glaucoma of both eyes HTN (hypertension) Low back pain NSTEMI (non-ST elevated myocardial infarction) Overweight (BMI 25.0-29.9) Post-menopausal Pure hypercholesterolemia Screening for breast cancer Screening for colon cancer Thrombocytopenia Type 2 diabetes mellitus without complication, with no history of insulin use Vitamin D deficiency Surgical History History of colonoscopy Hx of section S/P cardiac catheterization (~2018) Family History Father CVD (cardiovascular disease) Mother CVD (cardiovascular disease) Brother CVD (cardiovascular disease) Social History Housing: House Alcohol intake: never Patient Tobacco Use Status: Never used Tobacco e-Cigarette/Vaping Use: Never Used Second Hand Smoke Exposure: Yes service: No Current occupational status: disabled Cognitive needs: No Hearing needs: Yes Vision needs: Yes Assessment & Plan Assessment & Plan (1) Type 2 diabetes mellitus without complication, with no history of insulin use: Code(s): E11.9 - Type 2 diabetes mellitus without complications Plan: Used wt: 75kg (72 kg in 12/2022) Est kcal needs as per 25 kcal/kg bw: 1875 (40% carb, 30% protein/fat) Est fluid needs as per 25-30 ml/d: 1875- 2250 Est prot per day as per 1 g/kg bw: 75 g/d Recommend fiber intake : 8-10 g per day and gradually increase to 25-28 g per day for women or as tolerated Recommend sodium intake per day : less than 2000 mg Educated patient on: ( R = reviewed V = verbalizes understanding N/R = needs review N/A = not applicable * Food sources of carbohydrate, adequate serving sizes and its role in various health conditions: R * Differences between complex carbohydrates a simple carbohydrates, role of fiber in diet: R * Differences between types of fats and role in diet (mono on saturated fat fatty acids, saturated fatty acids, trans fats): NR * Food sources of sodium in salt and healthy modifications for heart health in kidney health: NR * Vitamins and minerals: NR * Healthy plate method concept: R * Physical activity: Benefits a precaution: NR * Hypoglycemia protocol (rule of 15): NR * Dietary prevention of Hyperglycemia: R Patient Instructions: Choose foods low in trans fats and saturated fats bake , broil, steam instead of frying continue including fiber rich foods Have glucerna shake instead of skipping meals Engage in walking as able goal , start with 10 minutes and gradually increase to 30 min three times a week Coding Level of Care Code Nutr Indiv Subseq (41811) Diagnoses Type 2 diabetes mellitus without complication, with no history of insulin use E11.9 Time Spent (min) 30
[2023-01-16 10:20] VITALS: BMI 28.2
== END 2023-01-16 10:21 | disposition home or self-care (01) ==
PROVIDERS: PCP Internal Medicine; Visit Provider Dietitian, Registered
DX: E11.9 Type 2 diabetes mellitus without complications (principal)

== ENCOUNTER → 2023-01-16 09:16 | Outpatient (BNVA) | payer MEDICARE, MEDICAID, SELFPAY | PROVIDERS: PCP Internal Medicine; Visit Provider Dietitian, Registered | DX: E11.9 Type 2 diabetes mellitus without complications (principal) | CPT/HCPCS: 97803 ==

== ENCOUNTER 2023-02-09 07:56 | Outpatient (REF) | payer MEDICARE, MEDICAID, SELFPAY ==
[2023-02-09 08:10] LABS: MANUAL DIFF FLAG NO
[2023-02-09 08:15] LABS: Basophils Absolute Auto 0.1 X10*3/uL (0.0-0.2); Basophils Percent Auto 0.9 % (0-2); Eosinophils Absolute Auto 0.2 X10*3/uL (0.0-0.4); Eosinophils Percent Auto 2.8 % (0-4); Hematocrit 38.5 % (37.0-47.0); Hemoglobin 11.8 g/dl (12.0-16.0); Imm Gran Abs Auto 0.02 X10*3/uL (0.00-0.03); Imm Gran Pct Auto 0.3 % (0.0-0.4); Lymphocytes Percent Auto 25.8 % (20-40); Mean Corpuscular HGB Conc 30.6 g/dl (31.0-35.0); Mean Corpuscular Hemoglobin 29.3 pg (27.0-33.0); Mean Corpuscular Volume 95.5 fL (80.0-98.0); Mean Platelet Volume 12.3 fL (9.4-12.3); Monocytes Absolute Auto 0.7 X10*3/uL (0.1-1.2); Monocytes Percent Auto 8.5 % (2-11); Neutrophils Absolute Auto 4.8 x10*3/uL (2.0-8.3); Neutrophils Percent Auto 61.7 % (45-73); Platelet Count 125 X10*3/uL (160-400); Red Blood Count 4.03 X10*6/uL (4.20-5.50); Red Cell Distribution Width 12.9 % (11.0-16.0); White Blood Count 7.8 X10*3/uL (4.8-10.8)
[2023-02-09 08:22] LABS: Estimated Average Glucose 108 mg/dL; Hemoglobin A1c % 5.4 % (<6.0)
[2023-02-09 09:04] LABS: Alanine Aminotransferase 27 U/L (0-31); Albumin Level 4.1 g/dL (3.5-5.0); Alkaline Phosphatase 73 U/L (39-117); Anion Gap 13 (12-20); Aspartate Amino Transferase 28 U/L (5-31); Bilirubin Total 0.8 mg/dL (0.0-1.0); Blood Urea Nitrogen 17 mg/dL (9-16); Calcium 9.8 mg/dL (8.4-10.2); Carbon Dioxide 23 mmol/L (22-29); Chloride 109 mmol/L (96-108); Cholesterol 121 mg/dL (<200); Estimated Glomerular Filt Rate > 60; Glucose Fasting 117 mg/dL (60-99); HDL Cholesterol 49 mg/dL (>40); LDL Cholesterol Calculated 59 mg/dL (<100); Potassium 4.6 mmol/L (3.3-5.1); Sodium 140 mmol/L (135-145); TSH reflex Free T4 1.86 uIU/mL (0.32-4.0); Total Protein 7.3 g/dL (6.5-8.0); Triglycerides 67 mg/dL (<150); Vitamin D 25-OH Total 36.5 ng/mL (>30)
[2023-02-09 09:13] LABS: Folate 14.4 ng/mL (> or = 4.0); Vitamin B12 880 pg/mL (200-900)
[2023-02-09 09:19] LABS: Appearance Urine Clear; Color Urine Yellow; Glucose Urine UA Negative (Negative); Leukocyte Esterase Urine Trace (Negative); Nitrite Urine Negative (Negative); Specific Gravity - Urine 1.015 (1.005-1.025); UMIC TRIGGER UACC YES; Urine Blood Negative (Negative); Urine Ketones Negative (Negative); Urine Protein Negative (Neg-Trace)
[2023-02-09 09:24] LABS: Bacteria Urine None Seen (None Seen); Hyaline Casts Urine 0-2 /LPF (0-2); RBC Urine 0-2 /HPF (0-2); Squamous Epithelial Cell Urine 0-2 /HPF (0-2); WBC Urine 0-5 /HPF (0-5)
[2023-02-09 09:58] LABS: Creatinine Urine 120.81 mg/dL; Microalbum/Creatinine Ratio Ur 4.1 ug/mg cr (<30)
== END 2023-02-09 07:57 | disposition home or self-care (01) ==
LOC: HO.LAB 07:56
PROVIDERS: PCP Internal Medicine; Visit Provider Internal Medicine
DX: I10 Essential (primary) hypertension (principal); E78.00 Pure hypercholesterolemia, unspecified; E11.9 Type 2 diabetes mellitus without complications; E53.8 Deficiency of other specified B group vitamins; E55.9 Vitamin D deficiency, unspecified; R30.0 Dysuria
CPT/HCPCS: 36415; 80053; 80061; 81001; 82043; 82306; 82570; 82607; 82746; 83036; 84443; 85025

== ENCOUNTER 2023-02-16 10:31 | Outpatient (AMB) | payer MEDICARE, MEDICAID, SELFPAY ==
[2023-02-16 10:35] VITALS: BP 120/70; PULSE 69; O2SAT 97; BMI 27.5
--- NOTE | 2023-02-16 10:35 | MHC.PC.OV ---
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 Accompanied by: Self / Same As Patient Allergies Penicillins [PENICILLINS] Allergy (Mild, Verified 02/16/23 11:11) HIVES,RASH Medication List - Last Reconciled 02/16/23 by Jonny Lam MD amlodipine 2.5 mg PO DAILY 90 days aspirin (Adult Low Dose Aspirin) 81 mg PO DAILY atorvastatin 40 mg PO DAILY baclofen 10 mg PO BEDTIME PRN carvedilol 6.25 mg PO BID diclofenac sodium 1% (Arthritis Pain (diclofenac)) 2 grams topical BID PRN 7 days dorzolamide-timolol 22.3-6.8 mg/mL 1 drp ophthalmic (eye) BID latanoprost 0.005% 1 drp ophthalmic (eye) BEDTIME losartan 100 mg PO DAILY metformin ER 500 mg PO BID 90 days sitagliptin phosphate (Januvia) 100 mg PO DAILY 90 days timolol maleate 0.5% 1 drp ophthalmic (eye) BID Tobacco use date assessed: 02/16/23 Fall risk assessment: No Falls in past year Last assessed Fall Risk: 02/16/23 Dental Screening Dental Screen Date: 02/16/23 Did you have a dental visit in the last 12 months?: No Did you have a dental problem in the last 6 months where you did not have access to dental care?: No Was dental information given to patient?: No HPI Annual Exam HPI Details Patient comes in today for her annual physical examination States that she feels okay She denies any headaches or dizziness Denies any chest pains, no SOB No nausea/vomiting, no abdominal pain No change in bowel habits noted Denies any acute urinary symptoms Had her follow up labs done last week - to discuss her results She last had her screening colonoscopy done with Dr. 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 [facility] Medical History Low back pain Post-menopausal Screening for breast cancer Screening for colon cancer Overweight (BMI 25.0-29.9) Anxiety Glaucoma of both eyes Vitamin D deficiency Thrombocytopenia Gastritis Type 2 diabetes mellitus without complication, with no history of insulin use Pure hypercholesterolemia Benign essential hypertension NSTEMI (non-ST elevated myocardial infarction) HTN (hypertension) Surgical History Hx of section S/P cardiac catheterization (~2018) History of colonoscopy Family History Father CVD (cardiovascular disease) Mother CVD (cardiovascular disease) Brother CVD (cardiovascular disease) Social History Housing: House Alcohol intake: never Patient Tobacco Use Status: Never used Tobacco e-Cigarette/Vaping Use: Never Used Second Hand Smoke Exposure: Yes service: No Current occupational status: disabled Cognitive needs: No Hearing needs: Yes Vision needs: Yes Questionnaire PHQ-9 Over the last 2 weeks, how often have you been bothered by any of the following problems? 1. Little interest or pleasure in doing things: not at all 2. Feeling down, depressed, or hopeless: not at all 3. Trouble falling or staying asleep, or sleeping too much: not at all 4. Feeling tired or having little energy: not at all 5. Poor appetite or overeating: not at all 6. Feeling bad about yourself - or that you are a failure or have let yourself or your family down: not at all 7. Trouble concentrating on things, such as reading the newspaper or watching television: not at all 8. Moving or speaking so slowly that other people could have noticed. Or the opposite - being so fidgety or restless that you have been moving around a lot more than usual: not at all 9. Thoughts that you would be better off or of hurting yourself in some way: not at all Total score: 0 Depression Screening Interpretation: Negative Depression Screening Done: Yes 30372 - PHQ-9 Billing: Yes Source: Developed by Drs. Zachariah Holman, Milla Gonzales, Herman Heller and colleagues, with an educational latia from [employer]. Thrive Questionnaire Date Thrive assessed: 02/16/23 I am a: Patient What is your living situation today?: I have a steady place to live Within the past 12 months, did the food you bought not last and you didn't have the money to get more?: Never true Within the past 12 months, did you worry whether your food would run out before you got money to buy more?: Never true Do you have trouble paying for medicines?: No Do you have trouble getting transportation to medical appointments?: No Do you have trouble paying your heating and electricity bill?: No Do you have trouble taking care of your child, family member or friend?: No Do you have trouble with day-to-day activities such as bathing, preparing meals, shopping, managing finances, etc.?: No Are you currently unemployed and looking for a job?: No Are you interested in more education?: No Please select the resources that you would like help with: None Currently or been in a relationship where the following occur: no concerns reported AUDIT C Alcohol Use Questionnaire (AUDIT-C) 1. How often do you have a drink containing alcohol?: Never 3. How often do you have six or more drinks on one occasion?: Never Total Score: 0 Score Reviewed/Action Taken: Yes MCKAY-7 AMB Questionnaire MCKAY-7 Date MCKYA - 7 assessed: 02/16/23 Feeling nervous, anxious, or on edge: 0 = Not at all Not being able to stop or control worryin = Not at all Worrying too much about different things: 0 = Not at all Trouble relaxin = Not at all Being so restless that it is hard to sit still: 0 = Not at all Becoming easily annoyed or irritable: 0 = Not at all Feeling afraid as if something awful might happen: 0 = Not at all Total MCKAY-7 score (0-4 normal; 5-9 mild; 10-14 moderate; 15-21 severe): 0 Source: Developed by Drs. Zachariah Holman, Milla Gonzales, Herman Heller and colleagues, with an educational latia from [employer]. Review of Systems Const Denies chills, Reports difficulty sleeping (at times - states that this is from her thinking too much ), Denies fatigue, Denies fever(s), Denies headache(s) and Denies malaise Eyes Denies blurry vision, Denies change in vision, Denies irritation and Denies itchy eyes ENT Denies dysphagia, Denies dizziness, Denies otalgia, Denies headache(s), Denies nasal congestion, Denies neck pain, Denies odynophagia, Denies sinus pain and Denies sore throat Card Denies chest pain, Denies rapid heart rate, Denies irregular heart rhythm, Denies palpitations and Denies dyspnea Resp Denies chest congestion, Denies cough, Denies dyspnea and Denies wheezing GI Denies abdominal pain, Denies bloating, Denies constipation, Denies dysphagia, Denies heartburn, Denies diarrhea, Denies nausea, Denies odynophagia and Denies vomiting Denies hematuria, Denies urinary frequency, Denies dysuria, Denies urinary incontinence and Denies urinary urgency Musc Denies back pain, Denies arthralgias, Denies joint swelling, Denies muscle weakness and Denies neck pain Skin/Breast Denies breast pain, Denies breast mass, Denies change in pigmentation, Denies lesions, Denies rash and Denies unusual bruising Neuro Denies dizziness, Denies headache(s) and Denies paresthesias Psych Denies anxiety and Denies depression Endo Denies fatigue and Denies palpitations Mirza/Lymph Denies easy bruising Aller/Immun Denies itchy eyes and Denies wheezing Physical exam (Primary Care) Vital Signs: Last Vital Signs Pulse 69 02/16/23 10:35 BP 120/70 02/16/23 10:35 Pulse Ox 97 02/16/23 10:35 Oxygen Delivery Method Room Air 02/16/23 10:35 BMI result Body Mass Index 27.5 Tobacco/Smoking Status: Tobacco use Status Tobacco use date assessed 02/16/23 02/16/23 10:36 Patient Tobacco Use Status Never used Tobacco 02/16/23 10:36 e-Cigarette/Vaping Use Never Used 02/16/23 10:36 PHQ-9: PHQ-9 Score PHQ-9: Total score 0 02/16/23 10:59 Depression Screening Interpretation: Negative Thrive Assessment: Date of Thrive Assessment Date Thrive assessed 02/16/23 02/16/23 10:36 Currently or been in a relationship where the following occur: no concerns reported Const General: no acute distress, alert and awake Orientation/consciousness: patient oriented x3 HENMT Head: Yes normocephalic and Yes atraumatic Ears: external ears normal, TM's normal bilaterally and EAC's normal General nose exam: No nasal discharge present Face and sinus: Yes normal facial exam and Yes sinuses nontender Teeth and gingiva: dentition normal Throat: Yes posterior oropharynx normal and Yes tonsils normal (no TP congestion) Eyes Eyelids: Yes eyelids normal Conjunctivae: conjunctivae normal Pupils: Equal, round and reactive pupils present EOM: EOMs intact bilaterally Neck Neck: Yes no lymphadenopathy and Yes supple Thyroid: Thyroid normal Resp Auscultation: clear to auscultation bilaterally, no rales and no wheezes Cardio Rate: regular rate Rhythm: regular rhythm Heart sounds: no murmurs GI Palpation (GI): Soft to palpation, nontender and No hepatosplenomegaly present Auscultation: normal bowel sounds General: Yes no CVA tenderness Back/Spine/Pelvis Back: no CVA tenderness Thoracic/Lumbar Spine: thoracic and lumbar spine normal to inspection Skin Lesions: no lesions Rashes: no rashes Neuro General: patient oriented x3, moves all extremities, no focal motor deficits and CN's II-XI intact bilaterally Cranial nerves: Yes Equal, round and reactive pupils present Cognition (Neuro): normal cognition Gait exam (Neuro): Normal gait present Extrem General: Yes no clubbing, cyanosis or edema Results Reviewed Results Reviewed: Laboratory Tests 02/09/23 02/09/23 02/09/23 08:07 08:07 08:08 WBC Hgb Hct Plt Count Sodium 140 Potassium Creatinine 0.78 Estimated GFR > 60 Fasting Glucose 117 H Hemoglobin A1c % 5.4 Calcium 9.8 AST 28 ALT 27 Triglycerides 67 Cholesterol 121 LDL Cholesterol, Calc 59 HDL Cholesterol 49 Vitamin B12 880 25-OH Vitamin D Total 36.5 TSH 1.86 Ur Specific Parker 1.015 Urine Protein Negative Urine Glucose (UA) Negative Urine Blood Negative Microalb/Creat Ratio 4.1 02/09/23 02/09/23 08:08 08:08 WBC 7.8 Hgb 11.8 L Hct 38.5 Plt Count 125 L Sodium Potassium 4.6 Creatinine Estimated GFR Fasting Glucose Hemoglobin A1c % Calcium AST ALT Triglycerides Cholesterol LDL Cholesterol, Calc HDL Cholesterol Vitamin B12 25-OH Vitamin D Total TSH Ur Specific Parker Urine Protein Urine Glucose (UA) Urine Blood Microalb/Creat Ratio Assessment and Plan Assessment & Plan (1) Annual physical exam: Code(s): Z00.00 - Encounter for general adult medical examination without abnormal findings Plan: Results of her labs done last week reviewed and discussed with patient She is up-to-date with her colon cancer screening - had her screening colonoscopy done with Dr. 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 (2) NSTEMI (non-ST elevated myocardial infarction): Code(s): I21.4 - Non-ST elevation (NSTEMI) myocardial infarction Plan: Patient has previous non-ST elevation NH in the setting of elevated blood pressures with no significant coronary artery disease Cardiac catheterization done at [facility] in 2019 showed NO significant coronary artery disease Reinforced primary risk factor modification according to ATP III guidelines Continue low dose Aspirin 81 mg QD Follow up with cardiology as scheduled (3) Pure hypercholesterolemia: Code(s): E78.00 - Pure hypercholesterolemia, unspecified Plan: Reinforced low cholesterol diet Continue Atorvastatin 40 mg QD Will recheck her labs and fasting lipids in 4 months for follow up (4) Benign essential hypertension: Code(s): I10 - Essential (primary) hypertension Plan: Reinforced low sodium diet - goal is systolic BP of at least 130 to 140 mm or less Continue Losartan 100 mg QD and Carvedilol 3.125 mg BID (5) Type 2 diabetes mellitus without complication, with no history of insulin use: Code(s): E11.9 - Type 2 diabetes mellitus without complications Plan: HgbA1c has improved further to 5.4% on her labs done last week (was at 5.6% a few months ago) - goal is < 7.0% Reinforced diabetic diet; follow up with pigment grinder for diabetic teaching and diet counseling as scheduled Continue Metformin ER 500 mg BID and Januvia 100 mg QD (6) Gastritis: Code(s): K29.70 - Gastritis, unspecified, without bleeding Qualifiers: Gastritis type: unspecified gastritis Chronicity: unspecified Gastritis bleeding: without bleeding Qualified Code(s): K29.70 - Gastritis, unspecified, without bleeding Plan: Dietary restrictions reinforced Continue Omeprazole 20 mg QD S/P repeat EGD and colonoscopy with Dr. Mitchell on 09/03/21 (7) Thrombocytopenia: Code(s): D69.6 - Thrombocytopenia, unspecified Plan: Stable - will continue to monitor platelet count regularly (8) Vitamin D deficiency: Code(s): E55.9 - Vitamin D deficiency, unspecified Plan: Continue Vitamin D3 2000 units QD (9) Glaucoma of both eyes: Code(s): H40.9 - Unspecified glaucoma Qualifiers: Glaucoma type: unspecified Qualified Code(s): H40.9 - Unspecified glaucoma Plan: Follow up with ophthalmology as scheduled Continue Dorzolamide HCl-Timolol eye drops as instructed (10) Insomnia: Code(s): G47.00 - Insomnia, unspecified Qualifiers: Insomnia type: unspecified Qualified Code(s): G47.00 - Insomnia, unspecified Plan: Patient states that she has trouble sleeping at night at times, mostly from thinking too much Have advised that she can try taking some OTC Melatonin 3 mg Q HS as needed if she is having a hard time sleeping well at night (11) Anxiety: Code(s): F41.9 - Anxiety disorder, unspecified Plan: Continue Hydroxyzine 25 mg TID PRN (12) Overweight (BMI 25.0-29.9): Code(s): E66.3 - Overweight Plan: Reinforced diet/exercise as tolerated/lose weight Plan Have advised patient to try getting her flu shot at her local pharmacy - advised that at her age and with her comorbidities, I would prefer she get the high-dose flu vaccine recommended for people over 65 y/o instead of just the regular quadrivalent flu vaccine that we have here in the office To return as scheduled next month for her preop exam Follow up in 4 months (June 2023) Orders: Orders MM tomosynthesis screening BI Today Z12.31 - Encounter for screening mammogram for malignant neoplasm of breast Hemoglobin A1c 06/24/23 E11.9 - Type 2 diabetes mellitus without complications Complete Blood Count Auto Diff 06/24/23 I10 - Essential (primary) hypertension Comprehensive [place]. Panel Fast 06/24/23 E78.00 - Pure hypercholesterolemia, unspecified Lipid Panel 06/24/23 E78.00 - Pure hypercholesterolemia, unspecified Coding Level of Care Code Est Pt Prev Care >65y(17904) Diagnoses Annual physical exam Z00.00 NSTEMI (non-ST elevated myocardial infarction) I21.4 Pure hypercholesterolemia E78.00 Benign essential hypertension I10 Type 2 diabetes mellitus without complication, with no history of insulin use E11.9 Gastritis without bleeding, unspecified chronicity, unspecified gastritis type K29.70 Gastritis type: unspecified gastritis Chronicity: unspecified Gastritis bleeding: without bleeding Thrombocytopenia D69.6 Vitamin D deficiency E55.9 Glaucoma of both eyes, unspecified glaucoma type H40.9 Glaucoma type: unspecified Insomnia, unspecified type G47.00 Insomnia type: unspecified Anxiety F41.9 Overweight (BMI 25.0-29.9) E66.3
== END 2023-02-16 11:26 | disposition home or self-care (01) ==
PROVIDERS: Visit Provider Internal Medicine
DX: Z00.00 Encounter for general adult medical examination without abnormal findings (principal); E11.9 Type 2 diabetes mellitus without complications; D69.6 Thrombocytopenia, unspecified; I25.2 Old myocardial infarction; E78.00 Pure hypercholesterolemia, unspecified; I10 Essential (primary) hypertension; K29.70 Gastritis, unspecified, without bleeding; E55.9 Vitamin D deficiency, unspecified; H40.9 Unspecified glaucoma; G47.00 Insomnia, unspecified; F41.9 Anxiety disorder, unspecified; E66.3 Overweight
CPT/HCPCS: 99397

== ENCOUNTER 2023-03-13 14:29 | Outpatient (AMB) | payer MEDICARE, MEDICAID, SELFPAY ==
[2023-03-13 14:31] VITALS: BP 144/88; PULSE 80; O2SAT 96; BMI 26.1
--- NOTE | 2023-03-13 14:31 | MHC.PC.OV ---
Vital Signs 03/13/23 14:31 Height 5 ft 3 in Weight 147 lb 8 oz BMI 26.1 BP 144/88 H Blood Pressure Location Lt brachial Position Sitting Pulse 80 Pulse Source Pulse Oximeter Pulse Oximetry (%) 96 Oxygen Delivery Method Room Air Intake Visit Reasons: R Cataract surgery-04/04 Denial Management Representative Required: No Accompanied by: Self / Same As Patient Allergies Penicillins [PENICILLINS] Allergy (Mild, Verified 03/13/23 15:01) HIVES,RASH Medication List - Last Reconciled 03/13/23 by Jonny Lam MD amlodipine 2.5 mg PO DAILY 90 days aspirin (Adult Low Dose Aspirin) 81 mg PO DAILY atorvastatin 40 mg PO DAILY baclofen 10 mg PO BEDTIME PRN carvedilol 6.25 mg PO BID diclofenac sodium 1% (Arthritis Pain (diclofenac)) 2 grams topical BID PRN 7 days dorzolamide-timolol 22.3-6.8 mg/mL 1 drp ophthalmic (eye) BID latanoprost 0.005% 1 drp ophthalmic (eye) BEDTIME losartan 100 mg PO DAILY metformin ER 500 mg PO BID 90 days sitagliptin phosphate (Januvia) 100 mg PO DAILY 90 days timolol maleate 0.5% 1 drp ophthalmic (eye) BID Tobacco use date assessed: 03/13/23 Fall risk assessment: No Falls in past year Last assessed Fall Risk: 03/13/23 Dental Screening Dental Screen Date: 03/13/23 Did you have a dental visit in the last 12 months?: No Did you have a dental problem in the last 6 months where you did not have access to dental care?: No Was dental information given to patient?: No HPI R Cataract surgery-04/04 HPI Details Patient comes in today at the request of Dr. [facility] for a preoperative medical examination for clearance for surgery She is scheduled for cataract extractions/phacoemulsification with IOL under MAC of the right eye in a few weeks on 04/04/2023, followed by the same procedure on the left eye 2 weeks later Patient states that she feels well overall She denies any headaches or dizziness She denies any chest pains, no shortness of breath No nausea/vomiting, no abdominal pain No change in bowel habits noted [facility] Medical History Low back pain Post-menopausal Screening for breast cancer Screening for colon cancer Overweight (BMI 25.0-29.9) Anxiety Glaucoma of both eyes Vitamin D deficiency Thrombocytopenia Gastritis Type 2 diabetes mellitus without complication, with no history of insulin use Pure hypercholesterolemia Benign essential hypertension NSTEMI (non-ST elevated myocardial infarction) HTN (hypertension) Surgical History Hx of section S/P cardiac catheterization (~2019) History of colonoscopy Family History Father CVD (cardiovascular disease) Mother CVD (cardiovascular disease) Brother CVD (cardiovascular disease) Social History Housing: House Alcohol intake: never Patient Tobacco Use Status: Never used Tobacco e-Cigarette/Vaping Use: Never Used Second Hand Smoke Exposure: Yes service: No Current occupational status: disabled Cognitive needs: No Hearing needs: Yes Vision needs: Yes Questionnaire PHQ-9 Over the last 2 weeks, how often have you been bothered by any of the following problems? 1. Little interest or pleasure in doing things: not at all 2. Feeling down, depressed, or hopeless: not at all 3. Trouble falling or staying asleep, or sleeping too much: not at all 4. Feeling tired or having little energy: not at all 5. Poor appetite or overeating: not at all 6. Feeling bad about yourself - or that you are a failure or have let yourself or your family down: not at all 7. Trouble concentrating on things, such as reading the newspaper or watching television: not at all 8. Moving or speaking so slowly that other people could have noticed. Or the opposite - being so fidgety or restless that you have been moving around a lot more than usual: not at all 9. Thoughts that you would be better off or of hurting yourself in some way: not at all Total score: 0 Depression Screening Interpretation: Negative Depression Screening Done: Yes 61308 - PHQ-9 Billing: Yes Source: Developed by Drs. Zachariah Holman, Milla Gonzales, Herman Heller and colleagues, with an educational latia from [employer]. Thrive Questionnaire Date Thrive assessed: 03/13/23 I am a: Patient What is your living situation today?: I have a steady place to live Within the past 12 months, did the food you bought not last and you didn't have the money to get more?: Never true Within the past 12 months, did you worry whether your food would run out before you got money to buy more?: Never true Do you have trouble paying for medicines?: No Do you have trouble getting transportation to medical appointments?: No Do you have trouble paying your heating and electricity bill?: No Do you have trouble taking care of your child, family member or friend?: No Do you have trouble with day-to-day activities such as bathing, preparing meals, shopping, managing finances, etc.?: No Are you currently unemployed and looking for a job?: No Are you interested in more education?: No Please select the resources that you would like help with: None Currently or been in a relationship where the following occur: no concerns reported AUDIT C Alcohol Use Questionnaire (AUDIT-C) 1. How often do you have a drink containing alcohol?: Never 3. How often do you have six or more drinks on one occasion?: Never Total Score: 0 Score Reviewed/Action Taken: Yes MCKAY-7 AMB Questionnaire MCKAY-7 Date MCKAY - 7 assessed: 03/13/23 Feeling nervous, anxious, or on edge: 0 = Not at all Not being able to stop or control worryin = Not at all Worrying too much about different things: 0 = Not at all Trouble relaxin = Not at all Being so restless that it is hard to sit still: 0 = Not at all Becoming easily annoyed or irritable: 0 = Not at all Feeling afraid as if something awful might happen: 0 = Not at all Total MCKAY-7 score (0-4 normal; 5-9 mild; 10-14 moderate; 15-21 severe): 0 Source: Developed by Drs. Zachariah Holman, Milla Gonzales, Herman Heller and colleagues, with an educational latia from [employer]. Review of Systems Const Denies chills, Reports difficulty sleeping, Denies fatigue, Denies fever(s) and Denies headache(s) Eyes Reports blurry vision ENT Denies dysphagia, Denies dizziness, Denies otalgia, Denies headache(s), Denies neck pain, Denies odynophagia and Denies sore throat Card Denies chest pain, Denies palpitations and Denies dyspnea Resp Denies cough and Denies dyspnea GI Denies abdominal pain, Denies constipation, Denies dysphagia, Denies heartburn, Denies diarrhea, Denies nausea, Denies odynophagia and Denies vomiting Denies difficulty voiding, Denies nocturia and Denies dysuria Musc Denies back pain and Denies neck pain Skin/Breast Denies rash Neuro Denies dizziness and Denies headache(s) Endo Denies fatigue and Denies palpitations Physical exam (Primary Care) Vital Signs: Last Vital Signs Pulse 80 03/13/23 14:31 BP 144/88 H 03/13/23 14:31 Pulse Ox 96 03/13/23 14:31 Oxygen Delivery Method Room Air 03/13/23 14:31 BMI result Body Mass Index 26.1 Tobacco/Smoking Status: Tobacco use Status Tobacco use date assessed 03/13/23 03/13/23 14:40 Patient Tobacco Use Status Never used Tobacco 03/13/23 14:40 e-Cigarette/Vaping Use Never Used 03/13/23 14:40 PHQ-9: PHQ-9 Score PHQ-9: Total score 0 03/13/23 15:01 Depression Screening Interpretation: Negative Thrive Assessment: Date of Thrive Assessment Date Thrive assessed 03/13/23 03/13/23 14:40 Currently or been in a relationship where the following occur: no concerns reported Const General: no acute distress and alert HENMT Ears: TM's normal bilaterally and EAC's normal Throat: Yes posterior oropharynx normal and Yes tonsils normal (no TP congestion) Neck Neck: Yes no lymphadenopathy and Yes supple Thyroid: Thyroid normal Resp Auscultation: clear to auscultation bilaterally, no rales and no wheezes Cardio Rate: regular rate Rhythm: regular rhythm Heart sounds: no murmurs GI Palpation (GI): Soft to palpation and nontender Auscultation: normal bowel sounds General: Yes no CVA tenderness Back/Spine/Pelvis Back: no CVA tenderness Skin Rashes: no rashes Extrem General: Yes no clubbing, cyanosis or edema Assessment and Plan Assessment & Plan (1) Preoperative examination: Code(s): Z01.818 - Encounter for other preprocedural examination Plan: Patient presents with acceptable risks for planned low cardiac-risk surgery She currently appears to be medically optimized and has no contraindications to undergo her scheduled cataract extraction procedures (2) Cataracts, bilateral: Code(s): H26.9 - Unspecified cataract Qualifiers: Cataract type: age-related Age-related cataract type: unspecified Qualified Code(s): H25.9 - Unspecified age-related cataract Plan: She is scheduled for cataract extractions/phacoemulsification with IOL under MAC of the right eye in a few weeks with Dr. Jonathan Encarnacion [facility] on 04/04/2023, followed by the same procedure on the left eye 2 weeks later (3) NSTEMI (non-ST elevated myocardial infarction): Code(s): I21.4 - Non-ST elevation (NSTEMI) myocardial infarction Plan: Patient has previous non-ST elevation PR in the setting of elevated blood pressures with no significant coronary artery disease Cardiac catheterization done at [facility] in 2019 showed NO significant coronary artery disease Reinforced primary risk factor modification according to ATP III guidelines Continue low dose Aspirin 81 mg QD Follow up with cardiology as scheduled (4) Pure hypercholesterolemia: Code(s): E78.00 - Pure hypercholesterolemia, unspecified Plan: Reinforced low cholesterol diet Continue Atorvastatin 40 mg QD Will recheck her labs and fasting lipids in 4 months for follow up (5) Benign essential hypertension: Code(s): I10 - Essential (primary) hypertension Plan: Reinforced low sodium diet - goal is systolic BP of at least 130 to 140 mm or less Continue Losartan 100 mg QD and Carvedilol 3.125 mg BID (6) Type 2 diabetes mellitus without complication, with no history of insulin use: Code(s): E11.9 - Type 2 diabetes mellitus without complications Plan: HgbA1c has improved further to 5.4% on her labs done last month (was at 5.6% a few months ago) - goal is < 7.0% Reinforced diabetic diet; follow up with conveyor console operator for diabetic teaching and diet counseling as scheduled Continue Metformin ER 500 mg BID and Januvia 100 mg QD (7) Gastritis: Code(s): K29.70 - Gastritis, unspecified, without bleeding Qualifiers: Gastritis type: unspecified gastritis Chronicity: unspecified Gastritis bleeding: without bleeding Qualified Code(s): K29.70 - Gastritis, unspecified, without bleeding Plan: Dietary restrictions reinforced Continue Omeprazole 20 mg QD S/P repeat EGD and colonoscopy with Dr. Mitchell on 09/03/21 (8) Thrombocytopenia: Code(s): D69.6 - Thrombocytopenia, unspecified Plan: Stable - will continue to monitor platelet count regularly (9) Vitamin D deficiency: Code(s): E55.9 - Vitamin D deficiency, unspecified Plan: Continue Vitamin D3 2000 units QD (10) Glaucoma of both eyes: Code(s): H40.9 - Unspecified glaucoma Qualifiers: Glaucoma type: unspecified Qualified Code(s): H40.9 - Unspecified glaucoma Plan: Follow up with ophthalmology as scheduled Continue Dorzolamide HCl-Timolol eye drops as instructed (11) Anxiety: Code(s): F41.9 - Anxiety disorder, unspecified Plan: Continue Hydroxyzine 25 mg TID PRN (12) Overweight (BMI 25.0-29.9): Code(s): E66.3 - Overweight Plan: Reinforced diet/exercise as tolerated/lose weight Plan Patient is currently medically optimized and has no contraindications to undergo planned cataract surgeries - is medically cleared to proceed with surgery Follow up as scheduled in June 2023 Coding Level of Care Code Est Pt Level 4 (02069) Diagnoses Preoperative examination Z01.818 Age-related cataract of both eyes, unspecified age-related cataract type H25.9 Cataract type: age-related Age-related cataract type: unspecified NSTEMI (non-ST elevated myocardial infarction) I21.4 Pure hypercholesterolemia E78.00 Benign essential hypertension I10 Type 2 diabetes mellitus without complication, with no history of insulin use E11.9 Gastritis without bleeding, unspecified chronicity, unspecified gastritis type K29.70 Gastritis type: unspecified gastritis Chronicity: unspecified Gastritis bleeding: without bleeding Thrombocytopenia D69.6 Vitamin D deficiency E55.9 Glaucoma of both eyes, unspecified glaucoma type H40.9 Glaucoma type: unspecified Anxiety F41.9 Overweight (BMI 25.0-29.9) E66.3
== END 2023-03-13 15:17 | disposition home or self-care (01) ==
PROVIDERS: PCP Internal Medicine; Visit Provider Internal Medicine
DX: E11.9 Type 2 diabetes mellitus without complications (principal); D69.6 Thrombocytopenia, unspecified; I25.2 Old myocardial infarction; Z01.818 Encounter for other preprocedural examination; H25.9 Unspecified age-related cataract; E78.00 Pure hypercholesterolemia, unspecified; I10 Essential (primary) hypertension; K29.70 Gastritis, unspecified, without bleeding; E55.9 Vitamin D deficiency, unspecified; H40.9 Unspecified glaucoma; F41.9 Anxiety disorder, unspecified; E66.3 Overweight
CPT/HCPCS: 99214

== ENCOUNTER 2023-03-23 09:20 | Outpatient (AMB) | payer MEDICARE, MEDICAID, SELFPAY ==
--- NOTE | 2023-03-23 09:36 | A.OFFVIS_ITS ---
Intake VS Expanded 03/23/23 09:37 Height 5 ft 3 in Weight 159 lb 2.78 oz BMI 28.2 Intake Visit Reasons: DM Allergies Penicillins [PENICILLINS] Allergy (Mild, Verified 03/13/23 15:01) HIVES,RASH HPI Nutrition Presentation Details Pt presents for MNT for T2DM Pt reports doing well, noticed weight gain related to holiday celebrations. Pt reports mindfully about reducing empty calorie foods. Pt has questions regarding sodium. Most Recent Diabetes Results: Microalb/Creat Ratio 4.1 ug/mg cr (<30) 02/09/23 Cholesterol 121 mg/dL (<200) 02/09/23 HDL Cholesterol 49 mg/dL (>40) 02/09/23 Triglycerides 67 mg/dL (<150) 02/09/23 Creatinine 0.78 mg/dL (0.5-1.4) 02/09/23 Blood Urea Nitrogen 17 mg/dL (9-16) H 02/09/23 Sodium 140 mmol/L (135-145) 02/09/23 Potassium 4.6 mmol/L (3.3-5.1) 02/09/23 Chloride 109 mmol/L (96-108) H 02/09/23 Carbon Dioxide 23 mmol/L (22-29) 02/09/23 Calcium 9.8 mg/dL (8.4-10.2) 02/09/23 AST 28 U/L (5-31) 02/09/23 ALT 27 U/L (0-31) 02/09/23 Total Protein 7.3 g/dL (6.5-8.0) 02/09/23 Albumin 4.1 g/dL (3.5-5.0) 02/09/23 [facility] Medical History Low back pain Post-menopausal Screening for breast cancer Screening for colon cancer Overweight (BMI 25.0-29.9) Anxiety Glaucoma of both eyes Vitamin D deficiency Thrombocytopenia Gastritis Type 2 diabetes mellitus without complication, with no history of insulin use Pure hypercholesterolemia Benign essential hypertension NSTEMI (non-ST elevated myocardial infarction) HTN (hypertension) Surgical History Hx of section S/P cardiac catheterization (~2019) History of colonoscopy Family History Father CVD (cardiovascular disease) Mother CVD (cardiovascular disease) Brother CVD (cardiovascular disease) Social History Housing: House Alcohol intake: never Patient Tobacco Use Status: Never used Tobacco e-Cigarette/Vaping Use: Never Used Second Hand Smoke Exposure: Yes service: No Current occupational status: disabled Cognitive needs: No Hearing needs: Yes Vision needs: Yes Assessment & Plan Assessment & Plan (1) Type 2 diabetes mellitus without complication, with no history of insulin use: Code(s): E11.9 - Type 2 diabetes mellitus without complications Plan: Used wt: 75kg (72 kg in 12/2022) (72 kg on 02/2023) Est kcal needs as per 25 kcal/kg bw: 1875 (40% carb, 30% protein/fat) Est fluid needs as per 25-30 ml/d: 1875- 2250 Est prot per day as per 1 g/kg bw: 75 g/d Recommend fiber intake : 8-10 g per day and gradually increase to 25-28 g per day for women or as tolerated Recommend sodium intake per day : less than 2000 mg Educated patient on: ( R = reviewed V = verbalizes understanding N/R = needs review N/A = not applicable * Food sources of carbohydrate, adequate serving sizes and its role in various health conditions: R * Differences between complex carbohydrates a simple carbohydrates, role of fiber in diet: R * Differences between types of fats and role in diet (mono on saturated fat fatty acids, saturated fatty acids, trans fats): R * Food sources of sodium in salt and healthy modifications for heart health in kidney health: R, info provided * Vitamins and minerals: NR * Healthy plate method concept: R * Physical activity: Benefits a precaution: R * Hypoglycemia protocol (rule of 15): NR * Dietary prevention of Hyperglycemia: R Patient Instructions: Choose lower sodium food options, low sodium seasonings, less pastries and have a fruit instead - see list of low sodium food options and low sodium concepts Add a new vegetable per week : spinach add to your salads/proteins/sauces Coding Level of Care Code Nutr Indiv Subseq (66073) Diagnoses Type 2 diabetes mellitus without complication, with no history of insulin use E11.9 Time Spent (min) 30
[2023-03-23 09:37] VITALS: BMI 28.2
== END 2023-03-23 10:03 | disposition home or self-care (01) ==
PROVIDERS: PCP Internal Medicine; Visit Provider Dietitian, Registered
DX: E11.9 Type 2 diabetes mellitus without complications (principal)

== ENCOUNTER → 2023-03-23 09:20 | Outpatient (BNVA) | payer MEDICARE, MEDICAID, SELFPAY | PROVIDERS: PCP Internal Medicine; Visit Provider Dietitian, Registered | DX: E11.9 Type 2 diabetes mellitus without complications (principal) | CPT/HCPCS: 97803 ==

== ENCOUNTER 2023-03-27 10:45 | Outpatient (REF) | payer MEDICARE, MEDICAID, SELFPAY | END 2023-03-27 10:46 | disposition home or self-care (01) | LOC: HO.MAMMO 10:45 | PROVIDERS: PCP Internal Medicine; Visit Provider Internal Medicine | DX: Z12.31 Encounter for screening mammogram for malignant neoplasm of breast (principal) | CPT/HCPCS: 77063; 77067 ==

== ENCOUNTER → 2023-03-27 11:30 | Outpatient (BNV) | payer MEDICARE, MEDICAID, SELFPAY | PROVIDERS: PCP Internal Medicine; Visit Provider Radiology Diagnostic Radiology | DX: Z12.31 Encounter for screening mammogram for malignant neoplasm of breast (principal) | CPT/HCPCS: 77063; 77067 ==

== ENCOUNTER 2023-07-12 08:05 | Outpatient (REF) | payer MEDICARE, MEDICAID, SELFPAY ==
[2023-07-12 08:31] LABS: MANUAL DIFF FLAG NO
[2023-07-12 09:08] LABS: Appearance Urine Clear; Color Urine Yellow; Glucose Urine UA Negative (Negative); Leukocyte Esterase Urine Small (1+) (Negative); Nitrite Urine Negative (Negative); Specific Gravity - Urine 1.015 (1.005-1.025); UMIC TRIGGER UACC YES; Urine Blood Negative (Negative); Urine Ketones Negative (Negative); Urine Protein Negative (Neg-Trace)
[2023-07-12 09:13] LABS: Basophils Absolute Auto 0.1 X10*3/uL (0.0-0.2); Eosinophils Absolute Auto 0.2 X10*3/uL (0.0-0.4); Eosinophils Percent Auto 3.3 % (0-4); Hematocrit 38.6 % (37.0-47.0); Hemoglobin 12.4 g/dl (12.0-16.0); Imm Gran Abs Auto 0.01 X10*3/uL (0.00-0.03); Imm Gran Pct Auto 0.2 % (0.0-0.4); Lymphocytes Absolute Auto 1.6 X10*3/uL (1.2-4.9); Lymphocytes Percent Auto 26.6 % (20-40); Mean Corpuscular HGB Conc 32.1 g/dl (31.0-35.0); Mean Corpuscular Hemoglobin 30.7 pg (27.0-33.0); Mean Corpuscular Volume 95.5 fL (80.0-98.0); Mean Platelet Volume 13.6 fL (9.4-12.3); Monocytes Absolute Auto 0.5 X10*3/uL (0.1-1.2); Monocytes Percent Auto 7.7 % (2-11); Neutrophils Absolute Auto 3.7 x10*3/uL (2.0-8.3); Neutrophils Percent Auto 61.2 % (45-73); Platelet Count 124 X10*3/uL (160-400); Red Blood Count 4.04 X10*6/uL (4.20-5.50); Red Cell Distribution Width 12.4 % (11.0-16.0); White Blood Count 6.1 X10*3/uL (4.8-10.8)
[2023-07-12 09:15] LABS: Estimated Average Glucose 117 mg/dL; Hemoglobin A1c % 5.7 % (<6.0)
[2023-07-12 09:19] LABS: Bacteria Urine None Seen (None Seen); Hyaline Casts Urine 0-2 /LPF (0-2); RBC Urine 0-2 /HPF (0-2); UACC Culture Trigger YES; WBC Urine 0-5 /HPF (0-5)
[2023-07-12 09:40] LABS: Alanine Aminotransferase 25 U/L (0-31); Albumin Level 4.2 g/dL (3.5-5.0); Alkaline Phosphatase 76 U/L (39-117); Anion Gap 11 (12-20); Aspartate Amino Transferase 28 U/L (5-31); Bilirubin Total 0.9 mg/dL (0.0-1.0); Blood Urea Nitrogen 13 mg/dL (9-16); Calcium 9.7 mg/dL (8.4-10.2); Carbon Dioxide 25 mmol/L (22-29); Chloride 110 mmol/L (96-108); Cholesterol 122 mg/dL (<200); Estimated Glomerular Filt Rate > 60; Glucose Fasting 106 mg/dL (60-99); HDL Cholesterol 52 mg/dL (>40); LDL Cholesterol Calculated 54 mg/dL (<100); Potassium 4.2 mmol/L (3.3-5.1); Sodium 142 mmol/L (135-145); Total Protein 7.4 g/dL (6.5-8.0); Triglycerides 84 mg/dL (<150)
== END 2023-07-12 08:06 | disposition home or self-care (01) ==
LOC: HO.LAB 08:05
PROVIDERS: PCP Internal Medicine; Visit Provider Internal Medicine
DX: I10 Essential (primary) hypertension (principal); E78.00 Pure hypercholesterolemia, unspecified; E11.9 Type 2 diabetes mellitus without complications; R82.90 Unspecified abnormal findings in urine; R30.0 Dysuria
CPT/HCPCS: 36415; 80053; 80061; 81001; 81003; 83036; 85025; 87086

== ENCOUNTER 2023-07-13 12:50 | Outpatient (AMB) | payer MEDICARE, MEDICAID, SELFPAY ==
[2023-07-13 12:54] VITALS: BP 124/62; PULSE 71; BMI 28.0
--- NOTE | 2023-07-13 12:54 | MHC.OFFVIS ---
Intake Vital Signs 07/13/23 12:54 Height 5 ft 3 in Weight 158 lb 4.67 oz BMI 28.0 BP 124/62 Blood Pressure Location Lt brachial Position Sitting Pulse 71 Pulse Source Monitor Intake Visit Reasons: 1 yr per dc Farm Rancher Required: No Allergies Penicillins [PENICILLINS] Allergy (Mild, Verified 07/13/23 12:57) HIVES,RASH Medication List - Last Reconciled 07/13/23 by Danielle Joshua SURVEILLANCE ANALYST-C amlodipine 2.5 mg PO DAILY 90 days atorvastatin 40 mg PO DAILY carvedilol 6.25 mg PO BID dorzolamide-timolol 22.3-6.8 mg/mL 1 drp ophthalmic (eye) BID latanoprost 0.005% 1 drp ophthalmic (eye) BEDTIME losartan 100 mg PO DAILY metformin ER 500 mg PO BID 90 days sitagliptin phosphate (Januvia) 100 mg PO DAILY 90 days timolol maleate 0.5% 1 drp ophthalmic (eye) BID HPI 1 yr per dc HPI Details Opal is a 77-year-old female with past medical history of hypertension, hyperlipidemia, diabetes, NSTEMI who presents for follow-up. Today she states that she has been doing well overall since her last visit 1 year ago. She has it notice some lightheadedness with quick position changes. No presyncope, syncope, falls. No chest discomfort at rest or with activity. No shortness of breath, PND, orthopnea or edema. She does housework and able to climb a flight of stairs without reported difficulty. She has noticed decreasing energy levels over the last year. She is taking all meds as directed. Daughter present and assisting with [employer] translation at their request, permit signed. [facility] Medical History Cataract Low back pain Post-menopausal Screening for breast cancer Screening for colon cancer Overweight (BMI 25.0-29.9) Anxiety Glaucoma of both eyes Vitamin D deficiency Thrombocytopenia Gastritis Type 2 diabetes mellitus without complication, with no history of insulin use Pure hypercholesterolemia Benign essential hypertension NSTEMI (non-ST elevated myocardial infarction) HTN (hypertension) Surgical History Hx of section S/P cardiac catheterization (~2018) History of colonoscopy Family History Father CVD (cardiovascular disease) Mother CVD (cardiovascular disease) Brother CVD (cardiovascular disease) Social History Housing: House Alcohol intake: never Patient Tobacco Use Status: Never used Tobacco e-Cigarette/Vaping Use: Never Used Second Hand Smoke Exposure: Yes service: No Current occupational status: disabled Cognitive needs: No Hearing needs: Yes Vision needs: Yes Review of Systems Const All systems reviewed & are unremarkable except as noted in HPI and below ENT Reports dizziness Card Denies chest pain, Denies chest pain at rest, Denies chest pain with activity, Denies rapid heart rate, Denies pedal edema, Denies edema, Denies leg edema, Denies lightheadedness, Denies palpitations, Denies dyspnea, Denies dyspnea on exertion and Denies orthopnea Resp Denies cough, Denies dyspnea and Denies dyspnea on exertion GI Denies hematochezia and Denies change in stool character Musc Denies abnormal gait, Denies limited range of motion, Denies muscle cramps, Denies muscle weakness, Denies numbness, Denies radiating pain into limb, Denies stiffness and Denies tingling Neuro Denies abnormal gait, Reports dizziness, Denies numbness and Denies tingling Endo Denies palpitations Physical Exam Vital Signs: BMI result Body Mass Index 28.0 Const General: cooperative, healthy appearing, no acute distress, alert and awake Orientation/consciousness: patient oriented x3 Neck Neck: Yes normal visual inspection and Yes no JVD Resp Effort & Inspection: normal respiratory effort, able to speak in complete sentences and not labored Auscultation: clear to auscultation bilaterally, no crackles, no rales, no rhonchi and no wheezes Cardio Rate: regular rate Rhythm: regular rhythm Heart sounds: S1 normal heart sound present and S2 normal heart sound present Peripheral pulses: Peripheral pulses 2+ throughout GI Inspection: Yes normal to inspection Neuro General: patient oriented x3 Extrem General: Yes normal to inspection and No edema Office Procedures EKG Details: Today, read by me, normal sinus rhythm, no acute ST or T-wave abnormalities, rate 71, QTC 404 milliseconds [id number], Complete Assessment & Plan Assessment & Plan (1) Benign essential hypertension: Code(s): I10 - Essential (primary) hypertension Plan: Hx of HTN. Last echo 03/25/19 shows EF 55-60%, mild AR, MR, TR, pulm HTN. Continues on Amlodipine, Carvedilol, Losartan. Labs done 07/12/2023 shows K 4.2, Cr 0.8. Blood pressure today 124/62 She tells me her home systolic ranges from 115 to 140. Medications reviewed and no changes. Low-salt diet discussed. Continue weight control and activity as tolerated. Cardiology follow-up in 12 months, sooner if needed. (2) Pure hypercholesterolemia: Code(s): E78.00 - Pure hypercholesterolemia, unspecified Plan: [place] LDL goal < 70 in pt with DM. Labs 07/12/23 shows LDL 54, normal got, gpt. Continue atorvastatin 40mg daily (3) Type 2 diabetes mellitus without complication, with no history of insulin use: Code(s): E11.9 - Type 2 diabetes mellitus without complications Plan: Hgb A1C goal < 7. Followed by her PCP. Hemoglobin A1c done yesterday 5.7 (4) NSTEMI (non-ST elevated myocardial infarction): Code(s): I21.4 - Non-ST elevation (NSTEMI) myocardial infarction Plan: History of NSTEMI in the setting of uncontrolled hypertension. No report of anginal symptoms. Signs and symptoms of angina reviewed. Plan Time spent on chart review, documentation, interview and assessment Coding Level of Care Code Est Pt Level 3 (94897) Diagnoses Benign essential hypertension I10 Pure hypercholesterolemia E78.00 Type 2 diabetes mellitus without complication, with no history of insulin use E11.9 NSTEMI (non-ST elevated myocardial infarction) I21.4 CPT Codes EKG - CPT: [id number], Complete ([id number]) Time Spent (min) 24
== END 2023-07-13 13:20 | disposition home or self-care (01) ==
PROVIDERS: Visit Provider Nurse Practitioner Family
DX: I10 Essential (primary) hypertension (principal); E78.00 Pure hypercholesterolemia, unspecified; E11.9 Type 2 diabetes mellitus without complications; I21.4 Non-ST elevation (NSTEMI) myocardial infarction
CPT/HCPCS: 93010; 99213

== ENCOUNTER → 2023-07-13 12:50 | Outpatient (BNVA) | payer MEDICARE, MEDICAID, SELFPAY | PROVIDERS: Visit Provider Nurse Practitioner Family | DX: I10 Essential (primary) hypertension (principal); E11.9 Type 2 diabetes mellitus without complications; E78.00 Pure hypercholesterolemia, unspecified; I25.2 Old myocardial infarction | CPT/HCPCS: 93005; 99212 ==

== ENCOUNTER 2023-07-20 09:44 | Outpatient (AMB) | payer MEDICARE, MEDICAID, SELFPAY ==
--- NOTE | 2023-07-20 09:46 | MHC.PC.OV ---
Vital Signs 07/20/23 09:48 Height 5 ft 3 in Weight 157 lb 6 oz BMI 27.9 BP 112/54 L Blood Pressure Location Lt brachial Position Sitting Pulse 71 Pulse Source Pulse Oximeter Pulse Oximetry (%) 96 Oxygen Delivery Method Room Air Intake Visit Reasons: HTN, hyperlipidemia, IFG Intake Note: Patient is here to follow up on HTN, IFG, Hyperlipidemia. Rent Control Office Manager Required: No Crime Victim Specialist: Present Accompanied by: Spouse Allergies Penicillins [PENICILLINS] Allergy (Mild, Verified 07/20/23 10:26) HIVES,RASH Medication List - Last Reconciled 07/20/23 by Jonny Lam MD amlodipine 2.5 mg PO DAILY 90 days atorvastatin 40 mg PO DAILY carvedilol 6.25 mg PO BID dorzolamide-timolol 22.3-6.8 mg/mL 1 drp ophthalmic (eye) BID latanoprost 0.005% 1 drp ophthalmic (eye) BEDTIME losartan 100 mg PO DAILY metformin ER 500 mg PO BID 90 days sitagliptin phosphate (Januvia) 100 mg PO DAILY 90 days timolol maleate 0.5% 1 drp ophthalmic (eye) BID Tobacco use date assessed: 07/20/23 Fall risk assessment: No Falls in past year Last assessed Fall Risk: 07/20/23 Dental Screening Dental Screen Date: 07/20/23 Did you have a dental visit in the last 12 months?: No Did you have a dental problem in the last 6 months where you did not have access to dental care?: No Was dental information given to patient?: No HPI HTN, hyperlipidemia, IFG HPI Details Patient comes in today for her follow up visit States that she feels okay She denies any headaches or dizziness Denies any chest pains, no SOB No nausea/vomiting, no abdominal pain No change in bowel habits noted Needs a couple of her Rx refilled Had her follow up labs done last week - to discuss her results [facility]LY [facility] Medical History Cataract Low back pain Post-menopausal Screening for breast cancer Screening for colon cancer Overweight (BMI 25.0-29.9) Anxiety Glaucoma of both eyes Vitamin D deficiency Thrombocytopenia Gastritis Type 2 diabetes mellitus without complication, with no history of insulin use Pure hypercholesterolemia Benign essential hypertension NSTEMI (non-ST elevated myocardial infarction) HTN (hypertension) Surgical History History of cataract surgery Hx of section S/P cardiac catheterization (~2019) History of colonoscopy Family History Father CVD (cardiovascular disease) Mother CVD (cardiovascular disease) Brother CVD (cardiovascular disease) Social History Housing: House Alcohol intake: never Patient Tobacco Use Status: Never used Tobacco e-Cigarette/Vaping Use: Never Used Second Hand Smoke Exposure: Yes service: No Current occupational status: disabled Cognitive needs: No Hearing needs: Yes Vision needs: Yes Questionnaire PHQ-9 Over the last 2 weeks, how often have you been bothered by any of the following problems? 1. Little interest or pleasure in doing things: not at all 2. Feeling down, depressed, or hopeless: not at all 3. Trouble falling or staying asleep, or sleeping too much: not at all 4. Feeling tired or having little energy: not at all 5. Poor appetite or overeating: not at all 6. Feeling bad about yourself - or that you are a failure or have let yourself or your family down: not at all 7. Trouble concentrating on things, such as reading the newspaper or watching television: not at all 8. Moving or speaking so slowly that other people could have noticed. Or the opposite - being so fidgety or restless that you have been moving around a lot more than usual: not at all 9. Thoughts that you would be better off or of hurting yourself in some way: not at all Total score: 0 Depression Screening Interpretation: Negative Depression Screening Done: Yes 04236 - PHQ-9 Billing: Yes Source: Developed by Drs. Zachariah Holman, Milla Gonzales, Herman Heller and colleagues, with an educational latia from [employer]. Thrive Questionnaire Date Thrive assessed: 07/20/23 I am a: Patient What is your living situation today?: I have a steady place to live Within the past 12 months, did the food you bought not last and you didn't have the money to get more?: Never true Within the past 12 months, did you worry whether your food would run out before you got money to buy more?: Never true Do you have trouble paying for medicines?: No Do you have trouble getting transportation to medical appointments?: No Do you have trouble paying your heating and electricity bill?: No Do you have trouble taking care of your child, family member or friend?: No Do you have trouble with day-to-day activities such as bathing, preparing meals, shopping, managing finances, etc.?: No Are you currently unemployed and looking for a job?: No Are you interested in more education?: No Currently or been in a relationship where the following occur: no concerns reported THRIVE Score: 0 AUDIT C Alcohol Use Questionnaire (AUDIT-C) 1. How often do you have a drink containing alcohol?: Never Total Score: 0 Score Reviewed/Action Taken: Yes MCKAY-7 AMB Questionnaire MCKAY-7 Date CMKAY - 7 assessed: 07/20/23 Feeling nervous, anxious, or on edge: 0 = Not at all Not being able to stop or control worryin = Not at all Worrying too much about different things: 0 = Not at all Trouble relaxin = Not at all Being so restless that it is hard to sit still: 0 = Not at all Becoming easily annoyed or irritable: 0 = Not at all Feeling afraid as if something awful might happen: 0 = Not at all Total MCKAY-7 score (0-4 normal; 5-9 mild; 10-14 moderate; 15-21 severe): 0 Source: Developed by Drs. Zachariah Holman, Milla Gonzales, Herman Heller and colleagues, with an educational latia from [employer]. Review of Systems Const Denies chills, Reports difficulty sleeping, Denies fatigue, Denies fever(s) and Denies headache(s) ENT Denies dysphagia, Denies dizziness, Denies otalgia, Denies headache(s), Denies neck pain, Denies odynophagia and Denies sore throat Card Denies chest pain, Denies palpitations and Denies dyspnea Resp Denies cough and Denies dyspnea GI Denies abdominal pain, Denies constipation, Denies dysphagia, Denies heartburn, Denies diarrhea, Denies nausea, Denies odynophagia and Denies vomiting Denies difficulty voiding, Denies nocturia, Denies dysuria and Denies urinary urgency Musc Denies back pain and Denies neck pain Skin/Breast Denies rash Neuro Denies dizziness and Denies headache(s) Endo Denies fatigue and Denies palpitations Physical exam (Primary Care) Vital Signs: Last Vital Signs Pulse 71 07/20/23 09:48 BP 112/54 L 07/20/23 09:48 Pulse Ox 96 07/20/23 09:48 Oxygen Delivery Method Room Air 07/20/23 09:48 BMI result Body Mass Index 27.9 Tobacco/Smoking Status: Tobacco use Status Tobacco use date assessed 07/20/23 07/20/23 09:54 Patient Tobacco Use Status Never used Tobacco 07/20/23 09:54 e-Cigarette/Vaping Use Never Used 07/20/23 09:54 PHQ-9: PHQ-9 Score PHQ-9: Total score 0 07/20/23 09:54 Depression Screening Interpretation: Negative Thrive Assessment: Date of Thrive Assessment Date Thrive assessed 07/20/23 07/20/23 09:54 Currently or been in a relationship where the following occur: no concerns reported Const General: no acute distress and alert HENMT Ears: TM's normal bilaterally and EAC's normal Throat: Yes posterior oropharynx normal and Yes tonsils normal (no TP congestion) Neck Neck: Yes no lymphadenopathy and Yes supple Thyroid: Thyroid normal Resp Auscultation: clear to auscultation bilaterally, no rales and no wheezes Cardio Rate: regular rate Rhythm: regular rhythm Heart sounds: no murmurs GI Palpation (GI): Soft to palpation and nontender Auscultation: normal bowel sounds General: Yes no CVA tenderness Back/Spine/Pelvis Back: no CVA tenderness Thoracic/Lumbar Spine: No lumbar spinal tenderness Skin Rashes: no rashes Extrem General: Yes no clubbing, cyanosis or edema Results Reviewed Results Reviewed: Laboratory Tests 07/12/23 08:29 WBC 6.1 Hgb 12.4 Hct 38.6 Plt Count 124 L Sodium 142 Potassium 4.2 Creatinine 0.80 Estimated GFR > 60 Fasting Glucose 106 H Hemoglobin A1c % 5.7 Calcium 9.7 AST 28 ALT 25 Triglycerides 84 Cholesterol 122 LDL Cholesterol, Calc 54 HDL Cholesterol 52 Ur Specific [place] 1.015 Urine Protein Negative Urine Glucose (UA) Negative Urine Blood Negative Urine Nitrite Negative Ur Leukocyte Esterase Small (1+) H Assessment and Plan Assessment & Plan (1) NSTEMI (non-ST elevated myocardial infarction): Code(s): I21.4 - Non-ST elevation (NSTEMI) myocardial infarction Plan: Patient had previous non-ST elevation [place] in the setting of elevated blood pressures with no significant coronary artery disease Cardiac catheterization done at [facility] in 2019 showed NO significant coronary artery disease Reinforced primary risk factor modification according to ATP III guidelines Continue low dose Aspirin 81 mg QD Follow up with cardiology as scheduled (2) Pure hypercholesterolemia: Code(s): E78.00 - Pure hypercholesterolemia, unspecified Plan: Results of her labs done last week reviewed and discussed with patient Reinforced low cholesterol diet Continue Atorvastatin 40 mg QD Will recheck her labs and fasting lipids in 4 months for follow up (3) Benign essential hypertension: Code(s): I10 - Essential (primary) hypertension Plan: Reinforced low sodium diet - goal is systolic BP of at least 130 to 140 mm or less Continue Losartan 100 mg QD, Amlodipine 2.5 mg QD and Carvedilol 6.25 mg BID (4) Type 2 diabetes mellitus without complication, with no history of insulin use: Code(s): E11.9 - Type 2 diabetes mellitus without complications Plan: Her HgbA1c was at 5.7% on her recent labs (was at 5.4% and 5.6% when previously checked) - goal is < 7.0% Reinforced diabetic diet Follow up with veneer gluer as scheduled for diabetic teaching and diet counseling Continue Metformin ER 500 mg BID and Januvia 100 mg QD (5) Gastritis: Code(s): K29.70 - Gastritis, unspecified, without bleeding Qualifiers: Gastritis type: unspecified gastritis Chronicity: unspecified Gastritis bleeding: without bleeding Qualified Code(s): K29.70 - Gastritis, unspecified, without bleeding Plan: S/P repeat EGD and colonoscopy with Dr. Mitchell on 09/03/21 Dietary restrictions reinforced Continue Omeprazole 20 mg QD Follow up with GI (Dr. Mitchell) as scheduled (6) Thrombocytopenia: Code(s): D69.6 - Thrombocytopenia, unspecified Plan: Stable; patient has had no acute issues with bleeding lately Will continue to monitor her platelet count regularly (7) Vitamin D deficiency: Code(s): E55.9 - Vitamin D deficiency, unspecified Plan: Continue Vitamin D3 2000 units QD (8) Glaucoma of both eyes: Code(s): H40.9 - Unspecified glaucoma Qualifiers: Glaucoma type: unspecified Qualified Code(s): H40.9 - Unspecified glaucoma Plan: Continue Dorzolamide HCl-Timolol eye drops as instructed Follow up with ophthalmology as scheduled (9) Insomnia: Code(s): G47.00 - Insomnia, unspecified Qualifiers: Insomnia type: unspecified Qualified Code(s): G47.00 - Insomnia, unspecified Plan: Patient states that she has trouble sleeping at night at times, mostly from thinking too much Have advised her previously that she can try taking some OTC Melatonin 3 mg Q HS as needed if she is having a hard time sleeping well at night (10) Anxiety: Code(s): F41.9 - Anxiety disorder, unspecified Plan: Continue Hydroxyzine 25 mg TID PRN (11) Overweight (BMI 25.0-29.9): Code(s): E66.3 - Overweight Plan: Reinforced diet/exercise as tolerated/lose weight Plan Follow up in 4 months Orders: Orders Lipid Panel 4 Months E78.00 - Pure hypercholesterolemia, unspecified Complete Blood Count Auto Diff 4 Months D64.9 - Anemia, unspecified Comprehensive [place]. Panel Fast 4 Months E78.00 - Pure hypercholesterolemia, unspecified TSH reflex Free T4 4 Months E78.00 - Pure hypercholesterolemia, unspecified UA CC w/rflx Micro + Cult 4 Months R30.0 - Dysuria Microalbumin, Random (w Creat) 4 Months E11.9 - Type 2 diabetes mellitus without complications Vitamin D 25-OH Total 4 Months E55.9 - Vitamin D deficiency, unspecified Hemoglobin A1c 4 Months E11.9 - Type 2 diabetes mellitus without complications Medications: Refilled atorvastatin 40 mg PO DAILY 90 tabs 3RF metformin ER 500 mg PO BID 90 days 180 tabs 1RF E11.9 - Type 2 diabetes mellitus without complications Coding Level of Care Code Est Pt Level 4 (31153) Diagnoses NSTEMI (non-ST elevated myocardial infarction) I21.4 Pure hypercholesterolemia E78.00 Benign essential hypertension I10 Type 2 diabetes mellitus without complication, with no history of insulin use E11.9 Gastritis without bleeding, unspecified chronicity, unspecified gastritis type K29.70 Gastritis type: unspecified gastritis Chronicity: unspecified Gastritis bleeding: without bleeding Thrombocytopenia D69.6 Vitamin D deficiency E55.9 Glaucoma of both eyes, unspecified glaucoma type H40.9 Glaucoma type: unspecified Insomnia, unspecified type G47.00 Insomnia type: unspecified Anxiety F41.9 Overweight (BMI 25.0-29.9) E66.3
[2023-07-20 09:48] VITALS: BP 112/54; PULSE 71; O2SAT 96; BMI 27.9
== END 2023-07-20 10:37 | disposition home or self-care (01) ==
PROVIDERS: PCP Internal Medicine; Visit Provider Internal Medicine
DX: I25.2 Old myocardial infarction (principal); E11.9 Type 2 diabetes mellitus without complications; D69.6 Thrombocytopenia, unspecified; E78.00 Pure hypercholesterolemia, unspecified; I10 Essential (primary) hypertension; K29.70 Gastritis, unspecified, without bleeding; E55.9 Vitamin D deficiency, unspecified; H40.9 Unspecified glaucoma; G47.00 Insomnia, unspecified; F41.9 Anxiety disorder, unspecified; E66.3 Overweight
CPT/HCPCS: 99214

== ENCOUNTER 2023-09-21 08:46 | Outpatient (AMB) | payer MEDICARE, MEDICAID, SELFPAY ==
[2023-09-21 09:03] VITALS: BMI 28.4
--- NOTE | 2023-09-21 09:03 | A.OFFVIS_ITS ---
VS Expanded 09/21/23 09:03 Height 5 ft 3 in Weight 160 lb 4.417 oz BMI 28.4 Intake Visit Reasons: T2DM/CONFIRMED Allergies Penicillins [PENICILLINS] Allergy (Mild, Verified 07/20/23 10:26) HIVES,RASH Nutrition Presentation Details: Pt presents for MNT f/u for T2DM Pt reports increasing on pastries an d food portion sizes at festivities beverages: water, coffee once a day B: 1 boiled egg with 2 toast ww , and 1/2 banana, coffee L: tuna fish sand with aburto ,, water dinner: sweet potato with cod and salad with olive oil and vinegar 9: 30 am 2 wheat crackers , water dairy: 2-3 serving/d (milk/yogurt/cheese) fruits: 0-1/d fish: 2 x/wk vegetables: daily 2 servings starches> 20 fried foods: 1-2x/wk Physical activity: daily life activities BS Monitoring Most Recent Diabetes Results: Microalb/Creat Ratio 4.1 ug/mg cr (<30) 02/09/23 Cholesterol 122 mg/dL (<200) 07/12/23 HDL Cholesterol 52 mg/dL (>40) 07/12/23 Triglycerides 84 mg/dL (<150) 07/12/23 Creatinine 0.80 mg/dL (0.5-1.4) 07/12/23 Blood Urea Nitrogen 13 mg/dL (9-16) 07/12/23 Sodium 142 mmol/L (135-145) 07/12/23 Potassium 4.2 mmol/L (3.3-5.1) 07/12/23 Chloride 110 mmol/L (96-108) H 07/12/23 Carbon Dioxide 25 mmol/L (22-29) 07/12/23 Calcium 9.7 mg/dL (8.4-10.2) 07/12/23 AST 28 U/L (5-31) 07/12/23 ALT 25 U/L (0-31) 07/12/23 Total Protein 7.4 g/dL (6.5-8.0) 07/12/23 Albumin 4.2 g/dL (3.5-5.0) 07/12/23 [facility]LY [facility] Medical History Cataract Low back pain Post-menopausal Screening for breast cancer Screening for colon cancer Overweight (BMI 25.0-29.9) Anxiety Glaucoma of both eyes Vitamin D deficiency Thrombocytopenia Gastritis Type 2 diabetes mellitus without complication, with no history of insulin use Pure hypercholesterolemia Benign essential hypertension NSTEMI (non-ST elevated myocardial infarction) HTN (hypertension) Surgical History History of cataract surgery Hx of section S/P cardiac catheterization (~2019) History of colonoscopy Family History Father CVD (cardiovascular disease) Mother CVD (cardiovascular disease) Brother CVD (cardiovascular disease) Social History Housing: House Alcohol intake: never Patient Tobacco Use Status: Never used Tobacco e-Cigarette/Vaping Use: Never Used Second Hand Smoke Exposure: Yes service: No Current occupational status: disabled Cognitive needs: No Hearing needs: Yes Vision needs: Yes Assessment & Plan Assessment & Plan (1) Type 2 diabetes mellitus without complication, with no history of insulin use: Code(s): E11.9 - Type 2 diabetes mellitus without complications Category: Medical Plan: Used wt: 75kg (72 kg in 12/2022) (72 kg on 02/2023) Est kcal needs as per 25 kcal/kg bw: 1875 (40% carb, 30% protein/fat) Est fluid needs as per 25-30 ml/d: 1875- 2250 Est prot per day as per 1 g/kg bw: 75 g/d Recommend fiber intake : 8-10 g per day and gradually increase to 25-28 g per day for women or as tolerated Recommend sodium intake per day : less than 2000 mg Educated patient on: ( R = reviewed V = verbalizes understanding N/R = needs review N/A = not applicable * Food sources of carbohydrate, adequate serving sizes and its role in various health conditions: R * Differences between complex carbohydrates a simple carbohydrates, role of fiber in diet: R * Differences between types of fats and role in diet (mono on saturated fat fatty acids, saturated fatty acids, trans fats): R * Food sources of sodium in salt and healthy modifications for heart health in kidney health: R, info provided * Vitamins and minerals: R * Healthy plate method concept: R * Physical activity: Benefits a precaution: R * Hypoglycemia protocol (rule of 15): R, info discussed and provided * Dietary prevention of Hyperglycemia: R Patient Instructions: Continue physically active as able unless otherwise specified by your doctor Reduce on chips/pastries and the like and have a fruit instead Coding Level of Care Code Nutr Indiv Subseq (06032) Diagnoses Type 2 diabetes mellitus without complication, with no history of insulin use E11.9 Time Spent (min) 30
== END 2023-09-21 09:31 | disposition home or self-care (01) ==
PROVIDERS: PCP Internal Medicine; Visit Provider Dietitian, Registered
DX: E11.9 Type 2 diabetes mellitus without complications (principal)

== ENCOUNTER → 2023-09-21 08:46 | Outpatient (BNVA) | payer MEDICARE, MEDICAID, SELFPAY | PROVIDERS: PCP Internal Medicine; Visit Provider Dietitian, Registered | DX: E11.9 Type 2 diabetes mellitus without complications (principal) | CPT/HCPCS: 97803 ==

== ENCOUNTER 2023-09-26 11:29 | Outpatient (AMB) | payer MEDICARE, MEDICAID, SELFPAY ==
[2023-09-26 11:32] VITALS: BP 118/62; PULSE 72; TEMP 36.6; O2SAT 97; BMI 28.3
--- NOTE | 2023-09-26 11:32 | MHC.OFFWIV ---
Intake Vital Signs 09/26/23 11:32 Height 5 ft 3 in Weight 160 lb BMI 28.3 BP 118/62 Blood Pressure Location Rt brachial Position Sitting Pulse 72 Pulse Source Pulse Oximeter Temp 97.8 F Temp Source Temporal Artery Scan Pulse Oximetry (%) 97 Oxygen Delivery Method Room Air Intake Visit Reasons: EP rt arm pain/stiffness Intake Note: Pt is here for right arm or stiffness since monday denies injury Patient Tobacco Use Status: Never used Tobacco Allergies Penicillins [PENICILLINS] Allergy (Mild, Verified 09/26/23 11:32) HIVES,RASH Do you need a note to return to daycare/school/sports/work: No HPI HPI Comments History of Present Illness Details Patient is a 78-year-old female with past medical history of type 2 diabetes, NSTEMI, HTN and hypercholesteremia complaining of right wrist pain x3 days. She states she just woke up with the pain. She also admits to associated stiffness swelling, mostly in her wrist but extending up to her mid forearm. She denies any injury but does admit to a history of arthritis. Which she states she is unable to make a fist. She has not taken any medications to try to make it feel better. [facility] Medical History Cataract Low back pain Post-menopausal Screening for breast cancer Screening for colon cancer Overweight (BMI 25.0-29.9) Anxiety Glaucoma of both eyes Vitamin D deficiency Thrombocytopenia Gastritis Type 2 diabetes mellitus without complication, with no history of insulin use Pure hypercholesterolemia Benign essential hypertension NSTEMI (non-ST elevated myocardial infarction) HTN (hypertension) Surgical History History of cataract surgery Hx of section S/P cardiac catheterization (~2019) History of colonoscopy Family History Father CVD (cardiovascular disease) Mother CVD (cardiovascular disease) Brother CVD (cardiovascular disease) Social History Housing: House Alcohol intake: never Patient Tobacco Use Status: Never used Tobacco e-Cigarette/Vaping Use: Never Used Second Hand Smoke Exposure: Yes service: No Current occupational status: disabled Cognitive needs: No Hearing needs: Yes Vision needs: Yes Review of Systems Const All systems reviewed & are unremarkable except as noted in HPI and below Physical Exam Vital Signs: Last Vital Signs Temp 97.8 F 09/26/23 11:32 Pulse 72 09/26/23 11:32 BP 118/62 09/26/23 11:32 Pulse Ox 97 09/26/23 11:32 Oxygen Delivery Method Room Air 09/26/23 11:32 BMI result Body Mass Index 28.3 Const General: cooperative, healthy appearing, comfortable, no acute distress and well developed Orientation/consciousness: patient oriented x3 Limitations: no limitations HEENT Head: Yes normal to inspection Eyes General: appearance normal, both eyes and all related structures Resp Effort & Inspection: normal respiratory effort and able to speak in complete sentences Skin General skin exam: no rashes or lesions noted Neuro General: patient oriented x3 Extrem Right upper extremity: normal capillary refill and wrist Details: swelling, abnormal ROM Details: held in an abnormal fashion Details: with extension and pain with active ROM during Details: with extension, with flexion, with ABduction and with ADduction (unable to make a fist) and normal vascular exam; no unusual warmth, no abrasions, no lacerations, no ecchymosis, no foreign body and no penetrating wound Assessment & Plan Assessment & Plan (1) Pain and swelling of right wrist: Code(s): M25.531 - Pain in right wrist; M25.431 - Effusion, right wrist Plan: Xray to verify no trauma, looks WNL pending final read. Therefore I sent diclofenac to pharmacy. Advised if no improvement, please follow-up with primary care doctor. Plan see above Orders: Orders XR hand wrist RT Today M25.431 - Effusion, right wrist, M25.531 - Pain in right wrist Medications: New diclofenac sodium 50 mg PO Q12H PRN 14 tabs 0RF pain M25.431 - Effusion, right wrist, M25.531 - Pain in right wrist Coding Level of Care Code Est Pt Level 3 (75985) Diagnoses Pain and swelling of right wrist M25.531; M25.431
== END 2023-09-26 12:35 | disposition home or self-care (01) ==
PROVIDERS: PCP Internal Medicine; Visit Provider Physician Assistant
DX: M25.531 Pain in right wrist (principal); M25.431 Effusion, right wrist
CPT/HCPCS: 99213

== ENCOUNTER 2023-09-26 12:03 | Outpatient (REF) | payer MEDICARE, MEDICAID, SELFPAY ==
--- NOTE | ~2023-09-26 | XR_ITS ---
EXAMINATION: XR HAND/WRIST, RIGHT CLINICAL INFORMATION: Right wrist pain. COMPARISON: None TECHNIQUE: PA, lateral, and oblique views of the right hand and wrist. FINDINGS: Multifocal osteoarthritis is most pronounced the interphalangeal joints, predominantly the thumb IP joint, characterized by nonuniform joint space narrowing with large marginal osteophytes and articular cortical irregularity. No erosions. More mild osteoarthritis is present at the MCP joints as well as the triscaphe and first CMC joint. No fractures. Bones are osteopenic. Chondrocalcinosis is observed. Soft tissue swelling at the wrist. Atherosclerotic calcifications are also noted at the wrist. XR/XR hand wrist RT IMPRESSION: 1. 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 2. No acute osseous findings.
== END 2023-09-26 12:04 | disposition home or self-care (01) ==
LOC: HO.HMGCX 12:03
PROVIDERS: PCP Internal Medicine; Visit Provider Physician Assistant
DX: M25.531 Pain in right wrist (principal); M25.431 Effusion, right wrist
CPT/HCPCS: 73110; 73130

== ENCOUNTER 2023-11-27 07:56 | Outpatient (REF) | payer MEDICARE, MEDICAID, SELFPAY ==
[2023-11-27 08:17] LABS: MANUAL DIFF FLAG NO
[2023-11-27 08:56] LABS: Basophils Absolute Auto 0.1 X10*3/uL (0.0-0.2); Basophils Percent Auto 0.9 % (0-2); Eosinophils Absolute Auto 0.2 X10*3/uL (0.0-0.4); Eosinophils Percent Auto 2.6 % (0-4); Hematocrit 36.7 % (37.0-47.0); Hemoglobin 11.7 g/dl (12.0-16.0); Imm Gran Abs Auto 0.02 X10*3/uL (0.00-0.03); Imm Gran Pct Auto 0.3 % (0.0-0.4); Lymphocytes Absolute Auto 1.7 X10*3/uL (1.2-4.9); Lymphocytes Percent Auto 25.7 % (20-40); Mean Corpuscular HGB Conc 31.9 g/dl (31.0-35.0); Mean Corpuscular Hemoglobin 30.4 pg (27.0-33.0); Mean Corpuscular Volume 95.3 fL (80.0-98.0); Mean Platelet Volume 13.5 fL (9.4-12.3); Monocytes Absolute Auto 0.5 X10*3/uL (0.1-1.2); Monocytes Percent Auto 8.2 % (2-11); Neutrophils Absolute Auto 4.1 x10*3/uL (2.0-8.3); Neutrophils Percent Auto 62.3 % (45-73); Platelet Count 119 X10*3/uL (160-400); Red Blood Count 3.85 X10*6/uL (4.20-5.50); White Blood Count 6.5 X10*3/uL (4.8-10.8)
[2023-11-27 08:57] LABS: Estimated Average Glucose 114 mg/dL; Hemoglobin A1c % 5.6 % (<6.0)
[2023-11-27 09:33] LABS: Alanine Aminotransferase 23 U/L (0-31); Albumin Level 4.1 g/dL (3.5-5.0); Alkaline Phosphatase 74 U/L (39-117); Anion Gap 11 (12-20); Aspartate Amino Transferase 24 U/L (5-31); Bilirubin Total 0.8 mg/dL (0.0-1.0); Blood Urea Nitrogen 23 mg/dL (9-16); Calcium 9.1 mg/dL (8.4-10.2); Carbon Dioxide 24 mmol/L (22-29); Chloride 110 mmol/L (96-108); Cholesterol 116 mg/dL (<200); Estimated Glomerular Filt Rate > 60; Glucose Fasting 127 mg/dL (60-99); HDL Cholesterol 48 mg/dL (>40); LDL Cholesterol Calculated 57 mg/dL (<100); Potassium 4.5 mmol/L (3.3-5.1); Sodium 140 mmol/L (135-145); Triglycerides 57 mg/dL (<150)
[2023-11-27 09:50] LABS: TSH reflex Free T4 1.06 uIU/mL (0.32-4.0); Vitamin D 25-OH Total 40.5 ng/mL (>30)
[2023-11-27 10:50] LABS: Appearance Urine Clear; Color Urine Yellow; Glucose Urine UA Negative (Negative); Leukocyte Esterase Urine Trace (Negative); Nitrite Urine Negative (Negative); PH 5.5 (5.0-9.0); UMIC TRIGGER UACC YES; Urine Blood Negative (Negative); Urine Ketones Negative (Negative); Urine Protein Negative (Neg-Trace)
[2023-11-27 10:57] LABS: Bacteria Urine None Seen (None Seen); Hyaline Casts Urine 0-2 /LPF (0-2); RBC Urine 0-2 /HPF (0-2); WBC Urine 0-5 /HPF (0-5)
[2023-11-27 11:06] LABS: Creatinine Urine 150.84 mg/dL; Microalbum/Creatinine Ratio Ur 5.9 ug/mg cr (<30)
== END 2023-11-27 07:57 | disposition home or self-care (01) ==
LOC: HO.LAB 07:56
PROVIDERS: PCP Internal Medicine; Visit Provider Internal Medicine
DX: D64.9 Anemia, unspecified (principal); E78.00 Pure hypercholesterolemia, unspecified; E11.9 Type 2 diabetes mellitus without complications; E55.9 Vitamin D deficiency, unspecified
CPT/HCPCS: 36415; 80053; 80061; 81001; 82043; 82306; 82570; 83036; 84443; 85025

== ENCOUNTER 2023-12-01 10:14 | Outpatient (AMB) | payer MEDICARE, MEDICAID, SELFPAY ==
[2023-12-01 10:21] VITALS: BP 124/52; PULSE 77; O2SAT 96; BMI 28.4
--- NOTE | 2023-12-01 10:21 | MHC.PC.OV ---
Vital Signs 12/01/23 10:21 Height 5 ft 3 in Weight 160 lb 2 oz BMI 28.4 BP 124/52 L Blood Pressure Location Lt brachial Position Sitting Pulse 77 Pulse Source Pulse Oximeter Pulse Oximetry (%) 96 Oxygen Delivery Method Room Air Intake Visit Reasons: DM, hyperlipidemia, HTN, CAD Dental Hygienist Required: No Accompanied by: Self / Same As Patient Allergies Penicillins [PENICILLINS] Allergy (Mild, Verified 12/01/23 10:55) HIVES,RASH Medication List - Last Reconciled 12/01/23 by Jonny Lam MD amlodipine 2.5 mg PO DAILY 90 days atorvastatin 40 mg PO DAILY atorvastatin 40 mg PO DAILY carvedilol 6.25 mg PO BID diclofenac sodium 50 mg PO Q12H PRN dorzolamide-timolol 22.3-6.8 mg/mL 1 drp ophthalmic (eye) BID latanoprost 0.005% 1 drp ophthalmic (eye) BEDTIME losartan 100 mg PO DAILY metformin ER 500 mg PO BID 90 days metformin ER 500 mg PO BID 90 days sitagliptin phosphate (Januvia) 100 mg PO DAILY 90 days timolol maleate 0.5% 1 drp ophthalmic (eye) BID Tobacco use date assessed: 07/20/23 Fall risk assessment: No Falls in past year Last assessed Fall Risk: 12/01/23 Dental Screening Dental Screen Date: 07/20/23 HPI DM, hyperlipidemia, HTN, CAD HPI Details Patient comes in today for her follow up visit States that she feels okay She denies any headaches or dizziness Denies any chest pains, no SOB No nausea/vomiting, no abdominal pain No change in bowel habits noted Needs a few of her Rx refilled She had her follow up labs done a few days ago - to discuss her results [facility] Medical History Cataract Low back pain Post-menopausal Screening for breast cancer Screening for colon cancer Overweight (BMI 25.0-29.9) Anxiety Glaucoma of both eyes Vitamin D deficiency Thrombocytopenia Gastritis Type 2 diabetes mellitus without complication, with no history of insulin use Pure hypercholesterolemia Benign essential hypertension NSTEMI (non-ST elevated myocardial infarction) HTN (hypertension) Surgical History History of cataract surgery Hx of section S/P cardiac catheterization (~2019) History of colonoscopy Family History Father CVD (cardiovascular disease) Mother CVD (cardiovascular disease) Brother CVD (cardiovascular disease) Social History Housing: House Alcohol intake: never Patient Tobacco Use Status: Never used Tobacco e-Cigarette/Vaping Use: Never Used Second Hand Smoke Exposure: Yes service: No Current occupational status: disabled Cognitive needs: No Hearing needs: Yes Vision needs: Yes Questionnaire Thrive Questionnaire Date Thrive assessed: 07/20/23 MCKAY-7 AMB Questionnaire MCKAY-7 Date MCKAY - 7 assessed: 07/20/23 Source: Developed by Drs. Zachariah Holman, Milla Gonzales, Herman Heller and colleagues, with an educational latia from [employer]. Review of Systems Const Denies chills, Reports difficulty sleeping, Denies fatigue, Denies fever(s) and Denies headache(s) ENT Denies dysphagia, Denies dizziness, Denies otalgia, Denies headache(s), Denies neck pain, Denies odynophagia and Denies sore throat Card Denies chest pain, Denies palpitations and Denies dyspnea Resp Denies cough and Denies dyspnea GI Denies abdominal pain, Denies constipation, Denies dysphagia, Denies heartburn, Denies diarrhea, Denies nausea, Denies odynophagia and Denies vomiting Denies difficulty voiding, Denies nocturia, Denies dysuria and Denies urinary urgency Musc Denies back pain and Denies neck pain Skin/Breast Denies rash Neuro Denies dizziness and Denies headache(s) Endo Denies fatigue and Denies palpitations Physical exam (Primary Care) Vital Signs: Last Vital Signs Pulse 77 12/01/23 10:21 BP 124/52 L 12/01/23 10:21 Pulse Ox 96 12/01/23 10:21 Oxygen Delivery Method Room Air 12/01/23 10:21 BMI result Body Mass Index 28.4 Tobacco/Smoking Status: Tobacco use Status Tobacco use date assessed 07/20/23 12/01/23 10:22 Patient Tobacco Use Status Never used Tobacco 12/01/23 10:22 e-Cigarette/Vaping Use Never Used 12/01/23 10:22 Thrive Assessment: Date of Thrive Assessment Date Thrive assessed 07/20/23 12/01/23 10:22 Const General: no acute distress and alert HENMT Ears: TM's normal bilaterally and EAC's normal Throat: Yes posterior oropharynx normal and Yes tonsils normal (no TP congestion) Neck Neck: Yes no lymphadenopathy and Yes supple Thyroid: Thyroid normal Resp Auscultation: clear to auscultation bilaterally, no rales and no wheezes Cardio Rate: regular rate Rhythm: regular rhythm Heart sounds: no murmurs GI Palpation (GI): Soft to palpation and nontender Auscultation: normal bowel sounds General: Yes no CVA tenderness Back/Spine/Pelvis Back: no CVA tenderness Thoracic/Lumbar Spine: No lumbar spinal tenderness Skin Rashes: no rashes Extrem General: Yes no clubbing, cyanosis or edema Results Reviewed Results Reviewed: Laboratory Tests 11/27/23 11/27/23 08:15 09:29 WBC 6.5 Hgb 11.7 L Hct 36.7 L Plt Count 119 L Sodium 140 Potassium 4.5 Creatinine 0.83 Estimated GFR > 60 Fasting Glucose 127 H Hemoglobin A1c % 5.6 Calcium 9.1 D AST 24 ALT 23 Triglycerides 57 Cholesterol 116 LDL Cholesterol, Calc 57 HDL Cholesterol 48 25-OH Vitamin D Total 40.5 TSH 1.06 Ur Specific [place] 1.020 Urine Protein Negative Urine Glucose (UA) Negative Urine Blood Negative Urine Nitrite Negative Ur Leukocyte Esterase Trace H Microalb/Creat Ratio 5.9 Assessment and Plan Assessment & Plan (1) NSTEMI (non-ST elevated myocardial infarction): Code(s): I21.4 - Non-ST elevation (NSTEMI) myocardial infarction Plan: Patient had previous non-ST elevation ME in the setting of elevated blood pressures with no significant coronary artery disease Cardiac catheterization done at [facility] in 2019 showed NO significant coronary artery disease Reinforced primary risk factor modification according to ATP III guidelines Continue low dose Aspirin 81 mg QD Follow up with cardiology as scheduled (2) Pure hypercholesterolemia: Code(s): E78.00 - Pure hypercholesterolemia, unspecified Plan: Results of her labs done a few days ago reviewed and discussed with patient Reinforced low cholesterol diet Continue Atorvastatin 40 mg QD Will recheck her labs and fasting lipids in 4 months for follow up (3) Benign essential hypertension: Code(s): I10 - Essential (primary) hypertension Plan: Reinforced low sodium diet - goal is systolic BP of at least 130 to 140 mm or less Continue Losartan 100 mg QD, Amlodipine 2.5 mg QD and Carvedilol 6.25 mg BID (4) Type 2 diabetes mellitus without complication, with no history of insulin use: Code(s): E11.9 - Type 2 diabetes mellitus without complications Plan: Her HgbA1c was at 5.6% on her labs done a few days ago (was at 5.7% a few months ago) - goal is < 7.0% Reinforced diabetic diet Continue Metformin ER 500 mg BID and Januvia 100 mg QD - Rx refilled Follow up with liner assembler as scheduled for diabetic teaching and diet counseling (5) Gastritis: Code(s): K29.70 - Gastritis, unspecified, without bleeding Qualifiers: Chronicity: unspecified Gastritis bleeding: without bleeding Gastritis type: unspecified gastritis Qualified Code(s): K29.70 - Gastritis, unspecified, without bleeding Plan: S/P repeat EGD and colonoscopy with Dr. Mitchell on 09/03/21 Dietary restrictions reinforced Continue Omeprazole 20 mg QD Follow up with GI (Dr. Mitchell) as scheduled (6) Thrombocytopenia: Code(s): D69.6 - Thrombocytopenia, unspecified Plan: Stable; patient has had no acute issues with bleeding lately Will continue to monitor her platelet count regularly (7) Vitamin D deficiency: Code(s): E55.9 - Vitamin D deficiency, unspecified Plan: Continue Vitamin D3 2000 units QD (8) Glaucoma of both eyes: Code(s): H40.9 - Unspecified glaucoma Qualifiers: Glaucoma type: unspecified Qualified Code(s): H40.9 - Unspecified glaucoma Plan: Continue Dorzolamide HCl-Timolol eye drops as instructed Follow up with ophthalmology as scheduled (9) Insomnia: Code(s): G47.00 - Insomnia, unspecified Qualifiers: Insomnia type: unspecified Qualified Code(s): G47.00 - Insomnia, unspecified Plan: Patient states that she has trouble sleeping at night at times, mostly from thinking too much Have advised her previously that she can try taking some OTC Melatonin 3 mg Q HS as needed if she is having a hard time sleeping well at night (10) Anxiety: Code(s): F41.9 - Anxiety disorder, unspecified Plan: Continue Hydroxyzine 25 mg TID PRN (11) Overweight (BMI 25.0-29.9): Code(s): E66.3 - Overweight Plan: Reinforced diet/exercise as tolerated/lose weight Plan Follow up in 4 months Orders: Orders Complete Blood Count Auto Diff 4 Months D64.9 - Anemia, unspecified Comprehensive [place]. Panel Fast 4 Months E78.00 - Pure hypercholesterolemia, unspecified TSH reflex Free T4 4 Months E78.00 - Pure hypercholesterolemia, unspecified Microalbumin, Random (w Creat) 4 Months E11.9 - Type 2 diabetes mellitus without complications Vitamin D 25-OH Total 4 Months E55.9 - Vitamin D deficiency, unspecified Hemoglobin A1c 4 Months E11.9 - Type 2 diabetes mellitus without complications Lipid Panel 4 Months E78.00 - Pure hypercholesterolemia, unspecified UA CC w/rflx Micro + Cult 4 Months R30.0 - Dysuria Medications: Refilled atorvastatin 40 mg PO DAILY 90 tabs 3RF carvedilol 6.25 mg PO BID 180 tabs 3RF losartan 100 mg PO DAILY 90 tabs 3RF I10 - Essential (primary) hypertension metformin ER 500 mg PO BID 90 days 180 tabs 1RF E11.9 - Type 2 diabetes mellitus without complications sitagliptin phosphate (Januvia) 100 mg PO DAILY 90 days 90 tabs 1RF E11.9 - Type 2 diabetes mellitus without complications Coding Level of Care Code Est Pt Level 4 (64148) Complex EM visit Add On G2211 Diagnoses NSTEMI (non-ST elevated myocardial infarction) I21.4 Pure hypercholesterolemia E78.00 Benign essential hypertension I10 Type 2 diabetes mellitus without complication, with no history of insulin use E11.9 Gastritis without bleeding, unspecified chronicity, unspecified gastritis type K29.70 Chronicity: unspecified Gastritis bleeding: without bleeding Gastritis type: unspecified gastritis Thrombocytopenia D69.6 Vitamin D deficiency E55.9 Glaucoma of both eyes, unspecified glaucoma type H40.9 Glaucoma type: unspecified Insomnia, unspecified type G47.00 Insomnia type: unspecified Anxiety F41.9 Overweight (BMI 25.0-29.9) E66.3
== END 2023-12-01 11:02 | disposition home or self-care (01) ==
PROVIDERS: PCP Internal Medicine; Visit Provider Internal Medicine
DX: E11.9 Type 2 diabetes mellitus without complications (principal); I25.2 Old myocardial infarction; E78.00 Pure hypercholesterolemia, unspecified; I10 Essential (primary) hypertension; K29.70 Gastritis, unspecified, without bleeding; E55.9 Vitamin D deficiency, unspecified; H40.9 Unspecified glaucoma; G47.00 Insomnia, unspecified; F41.9 Anxiety disorder, unspecified
CPT/HCPCS: 99214; G2211

== ENCOUNTER 2024-02-22 09:54 | Outpatient (AMB) | payer MEDICARE, MEDICAID, SELFPAY ==
[2024-02-22 10:23] VITALS: BP 130/62; PULSE 69; O2SAT 97; BMI 28.4
--- NOTE | 2024-02-22 10:23 | MHC.PC.OV ---
Vital Signs 02/22/24 10:23 Height 5 ft 3 in Weight 160 lb 6 oz BMI 28.4 BP 130/62 Blood Pressure Location Lt brachial Position Sitting Pulse 69 Pulse Source Pulse Oximeter Pulse Oximetry (%) 97 Oxygen Delivery Method Room Air Intake Visit Reasons: Annual Exam - see comments Web Operations Manager Required: No Accompanied by: Self / Same As Patient Allergies Penicillins [PENICILLINS] Allergy (Mild, Verified 02/22/24 10:23) HIVES,RASH Tobacco use date assessed: 02/22/24 Fall risk assessment: No Falls in past year Last assessed Fall Risk: 02/22/24 Dental Screening Dental Screen Date: 02/22/24 Did you have a dental visit in the last 12 months?: Yes Did you have a dental problem in the last 6 months where you did not have access to dental care?: No Was dental information given to patient?: Patient has dentist HPI Annual Exam - see comments HPI Details Patient comes in today for her annual physical examination States that she feels okay She denies any headaches or dizziness Denies any chest pains, no SOB No nausea/vomiting, no abdominal pain No change in bowel habits noted Denies any acute urinary symptoms She is up-to-date with her colon cancer screening - had her colonoscopy last done with Dr. Mitchell in 2021 and was advised that she should not need any further screening colonoscopies based on her age She is scheduled for her annual mammogram in about a month on 04/01/2024 and at her age, she no longer needs to continue with annual gynecology exam and pap smear She last had her BMD done in January 2021 and is now due for repeat BMD She would also like to get her flu shot today [facility] Medical History (Updated 02/22/24 @ 11:16 by Jonny Lam MD) Cataract Low back pain Post-menopausal Overweight (BMI 25.0-29.9) Anxiety Glaucoma of both eyes Vitamin D deficiency Thrombocytopenia Gastritis Type 2 diabetes mellitus without complication, with no history of insulin use Pure hypercholesterolemia Benign essential hypertension NSTEMI (non-ST elevated myocardial infarction) Surgical History History of cataract surgery Hx of section S/P cardiac catheterization (~2019) History of colonoscopy Family History Father CVD (cardiovascular disease) Mother CVD (cardiovascular disease) Brother CVD (cardiovascular disease) Social History Housing: House Alcohol intake: never Patient Tobacco Use Status: Never used Tobacco e-Cigarette/Vaping Use: Never Used Second Hand Smoke Exposure: Yes service: No Current occupational status: disabled Cognitive needs: No Hearing needs: Yes Vision needs: Yes Questionnaire PHQ-9 Over the last 2 weeks, how often have you been bothered by any of the following problems? 1. Little interest or pleasure in doing things: not at all 2. Feeling down, depressed, or hopeless: not at all 3. Trouble falling or staying asleep, or sleeping too much: not at all 4. Feeling tired or having little energy: not at all 5. Poor appetite or overeating: not at all 6. Feeling bad about yourself - or that you are a failure or have let yourself or your family down: not at all 7. Trouble concentrating on things, such as reading the newspaper or watching television: not at all 8. Moving or speaking so slowly that other people could have noticed. Or the opposite - being so fidgety or restless that you have been moving around a lot more than usual: not at all 9. Thoughts that you would be better off or of hurting yourself in some way: not at all Total score: 0 Depression Screening Interpretation: Negative Depression Screening Done: Yes 31476 - PHQ-9 Billing: Yes Source: Developed by Drs. Zachariah Holman, Milla Gonzales, Herman Heller and colleagues, with an educational latia from [employer] Thrive Questionnaire Date Thrive assessed: 02/22/24 I am a: Patient What is your living situation today?: I have a steady place to live Within the past 12 months, did the food you bought not last and you didn't have the money to get more?: Never true Within the past 12 months, did you worry whether your food would run out before you got money to buy more?: Never true Do you have trouble paying for medicines?: No Do you have trouble getting transportation to medical appointments?: No Do you have trouble paying your heating and electricity bill?: No Do you have trouble taking care of your child, family member or friend?: No Do you have trouble with day-to-day activities such as bathing, preparing meals, shopping, managing finances, etc.?: No Are you currently unemployed and looking for a job?: No Are you interested in more education?: No Please select the resources that you would like help with: None Currently or been in a relationship where the following occur: No concerns reported THRIVE Score: 0 AUDIT C Alcohol Use Questionnaire (AUDIT-C) 1. How often do you have a drink containing alcohol?: Never 3. How often do you have six or more drinks on one occasion?: Never Total Score: 0 Score Reviewed/Action Taken: Yes MCKAY-7 AMB Questionnaire MCKAY-7 Date MCKAY - 7 assessed: 02/22/24 Feeling nervous, anxious, or on edge: 0 = Not at all Not being able to stop or control worryin = Not at all Worrying too much about different things: 0 = Not at all Trouble relaxin = Not at all Being so restless that it is hard to sit still: 0 = Not at all Becoming easily annoyed or irritable: 0 = Not at all Feeling afraid as if something awful might happen: 0 = Not at all Total MCKAY-7 score (0-4 normal; 5-9 mild; 10-14 moderate; 15-21 severe): 0 Source: Developed by Drs. Zachariah Holman, Milla Gonzales, Herman Heller and colleagues, with an educational latia from [employer] Review of Systems Const Denies chills, Denies fatigue, Denies fever(s), Denies headache(s) and Denies malaise Eyes Denies blurry vision, Denies change in vision, Denies irritation and Denies itchy eyes ENT Denies dysphagia, Denies dizziness, Denies otalgia, Denies headache(s), Denies nasal congestion, Denies neck pain, Denies odynophagia, Denies sinus pain and Denies sore throat Card Denies chest pain, Denies rapid heart rate, Denies irregular heart rhythm, Denies palpitations and Denies dyspnea Resp Denies chest congestion, Denies cough, Denies dyspnea and Denies wheezing GI Denies abdominal pain, Denies bloating, Denies constipation, Denies dysphagia, Denies heartburn, Denies diarrhea, Denies nausea, Denies odynophagia and Denies vomiting Denies hematuria, Denies urinary frequency, Denies dysuria, Denies urinary incontinence and Denies urinary urgency Musc Denies back pain, Denies arthralgias, Denies joint swelling, Denies muscle weakness and Denies neck pain Skin/Breast Denies breast pain, Denies breast mass, Denies change in pigmentation, Denies lesions, Denies rash and Denies unusual bruising Neuro Denies dizziness, Denies headache(s) and Denies paresthesias Psych Denies anxiety and Denies depression Endo Denies fatigue and Denies palpitations Mirza/Lymph Denies easy bruising Aller/Immun Denies itchy eyes and Denies wheezing Physical exam (Primary Care) Vital Signs: Last Vital Signs Pulse 69 02/22/24 10:23 BP 130/62 02/22/24 10:23 Pulse Ox 97 02/22/24 10:23 Oxygen Delivery Method Room Air 02/22/24 10:23 BMI result Body Mass Index 28.4 Tobacco/Smoking Status: Tobacco use Status Tobacco use date assessed 02/22/24 02/22/24 10:30 Patient Tobacco Use Status Never used Tobacco 02/22/24 10:30 e-Cigarette/Vaping Use Never Used 02/22/24 10:30 PHQ-9: PHQ-9 Score PHQ-9: Total score 0 02/22/24 10:30 Depression Screening Interpretation: Negative Thrive Assessment: Date of Thrive Assessment Date Thrive assessed 02/22/24 02/22/24 10:30 Currently or been in a relationship where the following occur: No concerns reported Const General: no acute distress, alert and awake Orientation/consciousness: patient oriented x3 HENMT Head: Yes normocephalic and Yes atraumatic Ears: external ears normal, TM's normal bilaterally and EAC's normal General nose exam: No nasal discharge present Face and sinus: Yes normal facial exam and Yes sinuses nontender Teeth and gingiva: dentition normal Throat: Yes posterior oropharynx normal and Yes tonsils normal (no TP congestion) Eyes Eyelids: Yes eyelids normal Conjunctivae: conjunctivae normal Pupils: Equal, round and reactive pupils present EOM: EOMs intact bilaterally Neck Neck: Yes no lymphadenopathy and Yes supple Thyroid: Thyroid normal Resp Auscultation: clear to auscultation bilaterally, no rales and no wheezes Cardio Rate: regular rate Rhythm: regular rhythm Heart sounds: no murmurs GI Palpation (GI): Soft to palpation, nontender and No hepatosplenomegaly present Auscultation: normal bowel sounds General: Yes no CVA tenderness Back/Spine/Pelvis Back: no CVA tenderness Thoracic/Lumbar Spine: thoracic and lumbar spine normal to inspection Skin Lesions: no lesions Rashes: no rashes Neuro General: patient oriented x3, moves all extremities, no focal motor deficits and CN's II-XI intact bilaterally Cranial nerves: Yes Equal, round and reactive pupils present Cognition (Neuro): normal cognition Gait exam (Neuro): Normal gait present Extrem General: Yes no clubbing, cyanosis or edema Office Procedures Flu Questionnaire Does the patient have a severe egg allergy?: No Does the patient have severe life threatening allergies?: No Does the patient have a fever or illness today?: No Has the patient ever had Guillain-Menahga Syndrome?: No Has the patient ever had any past reaction to a flu shot?: No Immunizations Fluarix Triv [id number] (PF) 45 mcg (15 mcg x 3)/0.5 mL IM syringe Performing Provider: Jonny Lam MD [facility] Administered by: DOYLE Sabillon on 02/22/24 10:33 Dose Route Admin Location Dispensed Lot Number Expiration Date NDC Box Car Loader 0.5 mL IM Left Deltoid 0.5 mL [id number] 10/21/24 [id number] [employer] VIS Given Date VIS Provided VIS Publication Date 02/22/24 Single Vaccine 20 Eligibility Eligibility Date Funding Source Not [facility] Eligible 02/22/24 Private Coding Level of Care Code Est Pt Prev Care >65y(35010) Diagnoses Annual physical exam Z00.00 NSTEMI (non-ST elevated myocardial infarction) I21.4 Pure hypercholesterolemia E78.00 Benign essential hypertension I10 Type 2 diabetes mellitus without complication, with no history of insulin use E11.9 Gastritis without bleeding, unspecified chronicity, unspecified gastritis type K29.70 Gastritis type: unspecified gastritis Chronicity: unspecified Gastritis bleeding: without bleeding Thrombocytopenia D69.6 Vitamin D deficiency E55.9 Glaucoma of both eyes, unspecified glaucoma type H40.9 Glaucoma type: unspecified Insomnia, unspecified type G47.00 Insomnia type: unspecified Anxiety F41.9 Overweight (BMI 25.0-29.9) E66.3 Osteoporosis screening Z13.820 Assessment & Plan Assessment & Plan (1) Annual physical exam: Code(s): Z00.00 - Encounter for general adult medical examination without abnormal findings Category: Medical Plan: She is currently up-to-date with all of her cancer screenings (see HPI) She is due for repeat BMD (last done in 2020) and this will be ordered for her today (2) NSTEMI (non-ST elevated myocardial infarction): Code(s): I21.4 - Non-ST elevation (NSTEMI) myocardial infarction Category: Medical Plan: Patient had previous non-ST elevation NC in the setting of elevated blood pressures with no significant coronary artery disease Cardiac catheterization done at [facility] in 2018 showed NO significant coronary artery disease Reinforced primary risk factor modification according to ATP III guidelines Continue low dose Aspirin 81 mg QD Follow up with cardiology as scheduled (3) Pure hypercholesterolemia: Code(s): E78.00 - Pure hypercholesterolemia, unspecified Category: Medical Plan: Reinforced low cholesterol diet Continue Atorvastatin 40 mg QD Will recheck her labs and fasting lipids in 1 to 2 months as scheduled for follow up (4) Benign essential hypertension: Code(s): I10 - Essential (primary) hypertension Category: Medical Plan: Reinforced low sodium diet - goal is systolic BP of at least 130 to 140 mm or less Continue Losartan 100 mg QD, Amlodipine 2.5 mg QD and Carvedilol 6.25 mg BID (5) Type 2 diabetes mellitus without complication, with no history of insulin use: Code(s): E11.9 - Type 2 diabetes mellitus without complications Category: Medical Plan: Her HgbA1c was at 5.6% back in November 2023 (was previously at 5.7% a few months prior) - goal is < 7.0% Reinforced diabetic diet Continue Metformin ER 500 mg BID and Januvia 100 mg QD Follow up with aircraft engine cylinder mechanic as scheduled for diabetic teaching and diet counseling (6) Gastritis: Code(s): K29.70 - Gastritis, unspecified, without bleeding Category: Medical Qualifiers: Gastritis type: unspecified gastritis Chronicity: unspecified Gastritis bleeding: without bleeding Qualified Code(s): K29.70 - Gastritis, unspecified, without bleeding Plan: S/P repeat EGD and colonoscopy with Dr. Mitchell on 09/03/21 Dietary restrictions reinforced Continue Omeprazole 20 mg QD Follow up with GI (Dr. Mitchell) as scheduled (7) Thrombocytopenia: Code(s): D69.6 - Thrombocytopenia, unspecified Category: Medical Plan: Stable; patient has had no acute issues with bleeding lately Will continue to monitor her platelet count regularly (8) Vitamin D deficiency: Code(s): E55.9 - Vitamin D deficiency, unspecified Category: Medical Plan: Continue Vitamin D3 2000 units QD (9) Glaucoma of both eyes: Code(s): H40.9 - Unspecified glaucoma Category: Medical Qualifiers: Glaucoma type: unspecified Qualified Code(s): H40.9 - Unspecified glaucoma Plan: Continue Dorzolamide HCl-Timolol eye drops as instructed Follow up with ophthalmology as scheduled (10) Insomnia: Code(s): G47.00 - Insomnia, unspecified Category: Medical Qualifiers: Insomnia type: unspecified Qualified Code(s): G47.00 - Insomnia, unspecified Plan: Patient states that she has trouble sleeping at night at times, mostly from thinking too much Upon our advice, she tried taking some OTC Melatonin 3 mg Q HS, which she states helped somewhat - can continue Melatonin 3 mg Q HS PRN (11) Anxiety: Code(s): F41.9 - Anxiety disorder, unspecified Category: Medical Plan: Continue Hydroxyzine 25 mg TID PRN (12) Overweight (BMI 25.0-29.9): Code(s): E66.3 - Overweight Category: Medical Plan: Reinforced diet/exercise as tolerated/lose weight (13) Osteoporosis screening: Code(s): Z13.820 - Encounter for screening for osteoporosis Category: Medical Plan: Will send her for repeat BMD for osteoporosis screening Plan As requested, flu vaccine given to patient today Follow up as scheduled in March 2024 Orders: Orders Influenza [id number] Immunization Today Z23 - Encounter for immunization XR DEXA axial skeleton Today Z78.0 - Asymptomatic menopausal state
== END 2024-02-22 11:10 | disposition home or self-care (01) ==
LOC: HO.HMCH 09:55
PROVIDERS: PCP Internal Medicine; Visit Provider Internal Medicine
DX: Z00.00 Encounter for general adult medical examination without abnormal findings (principal); I21.4 Non-ST elevation (NSTEMI) myocardial infarction; E11.9 Type 2 diabetes mellitus without complications; D69.6 Thrombocytopenia, unspecified; E78.00 Pure hypercholesterolemia, unspecified; I10 Essential (primary) hypertension; K29.70 Gastritis, unspecified, without bleeding; E55.9 Vitamin D deficiency, unspecified; H40.9 Unspecified glaucoma; G47.00 Insomnia, unspecified; F41.9 Anxiety disorder, unspecified; E66.3 Overweight

== ENCOUNTER → 2024-02-22 09:54 | Outpatient (BNVA) | payer MEDICARE, MEDICAID, SELFPAY | PROVIDERS: PCP Internal Medicine; Visit Provider Internal Medicine | DX: Z00.01 Encounter for general adult medical examination with abnormal findings (principal); Z23 Encounter for immunization; I21.4 Non-ST elevation (NSTEMI) myocardial infarction; I10 Essential (primary) hypertension; E78.00 Pure hypercholesterolemia, unspecified; E11.9 Type 2 diabetes mellitus without complications; K29.70 Gastritis, unspecified, without bleeding; E55.9 Vitamin D deficiency, unspecified; D69.6 Thrombocytopenia, unspecified; H40.9 Unspecified glaucoma; G47.00 Insomnia, unspecified; F41.9 Anxiety disorder, unspecified; E66.3 Overweight; Z68.28 Body mass index [BMI] 28.0-28.9, adult; Z71.3 Dietary counseling and surveillance | CPT/HCPCS: 90471; 90656; 96127; 99397 ==

== ENCOUNTER 2024-03-20 08:42 | Outpatient (AMB) | payer MEDICARE, MEDICAID, SELFPAY ==
[2024-03-20 08:57] VITALS: BMI 28.8
--- NOTE | 2024-03-20 08:57 | A.OFFVIS_ITS ---
VS Expanded 03/20/24 08:57 Height 5 ft 3 in Weight 162 lb 11.218 oz BMI 28.8 Intake Visit Reasons: T2DM/CONFIRMED Allergies Penicillins [PENICILLINS] Allergy (Mild, Verified 02/22/24 10:23) HIVES,RASH Nutrition Presentation Details: Pt presents for MNT f/u for T2DM Pt reports doing well. Has questions regarding fiber in diet Physical activity: sedentary food frequency fruits/d: 0-1/d vegetables: 3x/wk starchy vegetables daily fish : 0-1/wk dairy: 1 x/d BS Monitoring Most Recent Diabetes Results: Microalb/Creat Ratio 5.9 ug/mg cr (<30) 11/27/23 Cholesterol 116 mg/dL (<200) 11/27/23 HDL Cholesterol 48 mg/dL (>40) 11/27/23 Triglycerides 57 mg/dL (<150) 11/27/23 Creatinine 0.83 mg/dL (0.5-1.4) 11/27/23 Blood Urea Nitrogen 23 mg/dL (9-16) H 11/27/23 Sodium 140 mmol/L (135-145) 11/27/23 Potassium 4.5 mmol/L (3.3-5.1) 11/27/23 Chloride 110 mmol/L (96-108) H 11/27/23 Carbon Dioxide 24 mmol/L (22-29) 11/27/23 Calcium 9.1 mg/dL (8.4-10.2) 11/27/23 AST 24 U/L (5-31) 11/27/23 ALT 23 U/L (0-31) 11/27/23 Total Protein 7.0 g/dL (6.5-8.0) 11/27/23 Albumin 4.1 g/dL (3.5-5.0) 11/27/23 [facility] Medical History (Updated 02/22/24 @ 11:16 by Jonny Lam MD) Cataract Low back pain Post-menopausal Overweight (BMI 25.0-29.9) Anxiety Glaucoma of both eyes Vitamin D deficiency Thrombocytopenia Gastritis Type 2 diabetes mellitus without complication, with no history of insulin use Pure hypercholesterolemia Benign essential hypertension NSTEMI (non-ST elevated myocardial infarction) Surgical History History of cataract surgery Hx of section S/P cardiac catheterization (~2019) History of colonoscopy Family History Father CVD (cardiovascular disease) Mother CVD (cardiovascular disease) Brother CVD (cardiovascular disease) Social History Housing: House Alcohol intake: never Patient Tobacco Use Status: Never used Tobacco e-Cigarette/Vaping Use: Never Used Second Hand Smoke Exposure: Yes service: No Current occupational status: disabled Cognitive needs: No Hearing needs: Yes Vision needs: Yes Assessment & Plan Assessment & Plan (1) Type 2 diabetes mellitus without complication, with no history of insulin use: Code(s): E11.9 - Type 2 diabetes mellitus without complications Category: Medical Plan: Used wt: 75kg (72 kg in 12/2022) (72 kg on 02/2023), 74 kg(03/17) Est kcal needs as per 25 kcal/kg bw: 1875 (40% carb, 30% protein/fat) Est fluid needs as per 25-30 ml/d: 1875- 2250 Est prot per day as per 1 g/kg bw: 75 g/d Recommend fiber intake : 8-10 g per day and gradually increase to 25-28 g per day for women or as tolerated Recommend sodium intake per day : less than 2000 mg Educated patient on: ( R = reviewed V = verbalizes understanding N/R = needs review N/A = not applicable * Food sources of carbohydrate, adequate serving sizes and its role in various health conditions: R * Differences between complex carbohydrates a simple carbohydrates, role of fiber in diet: R * Differences between types of fats and role in diet (mono on saturated fat fatty acids, saturated fatty acids, trans fats): R * Food sources of sodium in salt and healthy modifications for heart health in kidney health: R, info provided * Vitamins and minerals: R * Healthy plate method concept: R * Physical activity: Benefits a precaution: R * Hypoglycemia protocol (rule of 15): R, info discussed and provided * Dietary prevention of Hyperglycemia: R Patient Instructions: Include fiber in your diet : example add mixed vegetables to rice add spinach to soups have castro salad 2 times a week Engage in physical activity as as able keep hydrated, have water with meals and snacks Coding Level of Care Code Nutr Indiv Subseq (46331) Diagnoses Type 2 diabetes mellitus without complication, with no history of insulin use E11.9 Time Spent (min) 30
== END 2024-03-20 09:16 | disposition home or self-care (01) ==
PROVIDERS: PCP Internal Medicine; Visit Provider Dietitian, Registered
DX: E11.9 Type 2 diabetes mellitus without complications (principal)

== ENCOUNTER → 2024-03-20 08:42 | Outpatient (BNVA) | payer MEDICARE, MEDICAID, SELFPAY | PROVIDERS: PCP Internal Medicine; Visit Provider Dietitian, Registered | DX: E11.9 Type 2 diabetes mellitus without complications (principal) | CPT/HCPCS: 97803 ==

== ENCOUNTER 2024-04-02 08:16 | Outpatient (REF) | payer MEDICARE, MEDICAID, SELFPAY ==
[2024-04-02 08:58] LABS: MANUAL DIFF FLAG NO
[2024-04-02 09:13] LABS: Basophils Absolute Auto 0.1 X10*3/uL (0.0-0.2); Basophils Percent Auto 0.8 % (0-2); Eosinophils Absolute Auto 0.2 X10*3/uL (0.0-0.4); Eosinophils Percent Auto 3.3 % (0-4); Hematocrit 38.5 % (37.0-47.0); Hemoglobin 11.9 g/dl (12.0-16.0); Imm Gran Abs Auto 0.02 X10*3/uL (0.00-0.03); Imm Gran Pct Auto 0.3 % (0.0-0.4); Lymphocytes Absolute Auto 1.7 X10*3/uL (1.2-4.9); Lymphocytes Percent Auto 25.3 % (20-40); Mean Corpuscular HGB Conc 30.9 g/dl (31.0-35.0); Mean Corpuscular Hemoglobin 29.5 pg (27.0-33.0); Mean Corpuscular Volume 95.5 fL (80.0-98.0); Mean Platelet Volume 12.7 fL (9.4-12.3); Monocytes Absolute Auto 0.5 X10*3/uL (0.1-1.2); Monocytes Percent Auto 7.7 % (2-11); Neutrophils Absolute Auto 4.2 x10*3/uL (2.0-8.3); Neutrophils Percent Auto 62.6 % (45-73); Platelet Count 116 X10*3/uL (160-400); Red Blood Count 4.03 X10*6/uL (4.20-5.50); Red Cell Distribution Width 12.8 % (11.0-16.0); White Blood Count 6.6 X10*3/uL (4.8-10.8)
[2024-04-02 09:22] LABS: Appearance Urine Clear; Color Urine Yellow; Glucose Urine UA Negative (Negative); Leukocyte Esterase Urine Negative (Negative); Nitrite Urine Negative (Negative); Specific Gravity - Urine 1.015 (1.005-1.025); Urine Blood Negative (Negative); Urine Ketones Negative (Negative); Urine Protein Negative (Neg-Trace)
[2024-04-02 09:37] LABS: Estimated Average Glucose 123 mg/dL; Hemoglobin A1c % 5.9 % (<6.0)
[2024-04-02 09:51] LABS: Alanine Aminotransferase 29 U/L (0-31); Alkaline Phosphatase 71 U/L (39-117); Anion Gap 14 (12-20); Aspartate Amino Transferase 31 U/L (5-31); Bilirubin Total 0.8 mg/dL (0.0-1.0); Blood Urea Nitrogen 13 mg/dL (9-16); Calcium 9.3 mg/dL (8.4-10.2); Carbon Dioxide 24 mmol/L (22-29); Chloride 109 mmol/L (96-108); Cholesterol 113 mg/dL (<200); Estimated Glomerular Filt Rate > 60; Glucose Fasting 131 mg/dL (60-99); HDL Cholesterol 47 mg/dL (>40); LDL Cholesterol Calculated 52 mg/dL (<100); Potassium 4.3 mmol/L (3.3-5.1); Sodium 143 mmol/L (135-145); Triglycerides 73 mg/dL (<150)
[2024-04-02 09:59] LABS: Creatinine Urine 101.32 mg/dL; Microalbum/Creatinine Ratio Ur 8.8 ug/mg cr (<30)
[2024-04-02 10:10] LABS: TSH reflex Free T4 1.66 uIU/mL (0.32-4.0); Vitamin D 25-OH Total 38.6 ng/mL (>30)
== END 2024-04-02 08:17 | disposition home or self-care (01) ==
LOC: HO.LAB 08:16
PROVIDERS: PCP Internal Medicine; Visit Provider Internal Medicine
DX: D64.9 Anemia, unspecified (principal); E78.00 Pure hypercholesterolemia, unspecified; E55.9 Vitamin D deficiency, unspecified; E11.9 Type 2 diabetes mellitus without complications; R30.0 Dysuria
CPT/HCPCS: 36415; 80053; 80061; 81003; 82043; 82306; 82570; 83036; 84443; 85025

== ENCOUNTER 2024-04-09 10:14 | Outpatient (AMB) | payer MEDICARE, MEDICAID, SELFPAY ==
[2024-04-09 10:21] VITALS: BP 122/68; PULSE 78; O2SAT 97; BMI 28.6
--- NOTE | 2024-04-09 10:21 | A.OFFPC_ITS ---
Vital Signs 04/09/24 10:21 Height 5 ft 3 in Weight 161 lb 6 oz BMI 28.6 BP 122/68 Blood Pressure Location Lt brachial Position Sitting Pulse 78 Pulse Source Pulse Oximeter Pulse Oximetry (%) 97 Oxygen Delivery Method Room Air Intake Visit Reasons: [facility] f/u Rn Wound Care Required: No Accompanied by: Self / Same As Patient Allergies Penicillins [PENICILLINS] Allergy (Mild, Verified 04/09/24 10:40) HIVES,RASH Medication List - Last Reconciled 04/09/24 by Jonny Lam MD amlodipine 2.5 mg PO DAILY 90 days atorvastatin 40 mg PO DAILY carvedilol 6.25 mg PO BID diclofenac sodium 50 mg PO Q12H PRN dorzolamide-timolol 22.3-6.8 mg/mL 1 drp ophthalmic (eye) BID latanoprost 0.005% 1 drp ophthalmic (eye) BEDTIME losartan 100 mg PO DAILY metformin ER 500 mg PO BID 90 days sitagliptin phosphate (Januvia) 100 mg PO DAILY 90 days timolol maleate 0.5% 1 drp ophthalmic (eye) BID Tobacco use date assessed: 04/09/24 Fall risk assessment: No Falls in past year Last assessed Fall Risk: 04/09/24 Dental Screening Dental Screen Date: 04/09/24 Did you have a dental visit in the last 12 months?: Yes Did you have a dental problem in the last 6 months where you did not have access to dental care?: No Was dental information given to patient?: Patient has dentist HPI [facility] f/u HPI Details Patient comes in today for her follow up visit States that she feels okay She denies any headaches or dizziness Denies any chest pains, no SOB No nausea/vomiting, no abdominal pain No change in bowel habits noted She had her follow up labs done last week - to discuss her results Her would also like for us to go over her vaccinations to see which ones she needs to have updated currently [facility] Medical History Cataract Low back pain Post-menopausal Overweight (BMI 25.0-29.9) Anxiety Glaucoma of both eyes Vitamin D deficiency Thrombocytopenia Gastritis Type 2 diabetes mellitus without complication, with no history of insulin use Pure hypercholesterolemia Benign essential hypertension NSTEMI (non-ST elevated myocardial infarction) Surgical History History of cataract surgery Hx of section S/P cardiac catheterization (~2019) History of colonoscopy Family History Father CVD (cardiovascular disease) Mother CVD (cardiovascular disease) Brother CVD (cardiovascular disease) Social History Housing: House Alcohol intake: never Patient Tobacco Use Status: Never used Tobacco e-Cigarette/Vaping Use: Never Used Second Hand Smoke Exposure: Yes service: No Current occupational status: disabled Cognitive needs: No Hearing needs: Yes Vision needs: Yes Questionnaire PHQ-9 Over the last 2 weeks, how often have you been bothered by any of the following problems? 1. Little interest or pleasure in doing things: not at all 2. Feeling down, depressed, or hopeless: not at all 3. Trouble falling or staying asleep, or sleeping too much: not at all 4. Feeling tired or having little energy: not at all 5. Poor appetite or overeating: not at all 6. Feeling bad about yourself - or that you are a failure or have let yourself or your family down: not at all 7. Trouble concentrating on things, such as reading the newspaper or watching television: not at all 8. Moving or speaking so slowly that other people could have noticed. Or the opposite - being so fidgety or restless that you have been moving around a lot more than usual: not at all 9. Thoughts that you would be better off or of hurting yourself in some way: not at all Total score: 0 Depression Screening Interpretation: Negative Depression Screening Done: Yes 11262 - PHQ-9 Billing: Yes Source: Developed by Drs. Zachariah Holman, Milla Gonzales, Herman Heller and colleagues, with an educational latia from [employer]. Thrive Questionnaire Date Thrive assessed: 04/09/24 I am a: Patient What is your living situation today?: I have a steady place to live Within the past 12 months, did the food you bought not last and you didn't have the money to get more?: Never true Within the past 12 months, did you worry whether your food would run out before you got money to buy more?: Never true Do you have trouble paying for medicines?: No Do you have trouble getting transportation to medical appointments?: No Do you have trouble paying your heating and electricity bill?: No Do you have trouble taking care of your child, family member or friend?: No Do you have trouble with day-to-day activities such as bathing, preparing meals, shopping, managing finances, etc.?: No Are you currently unemployed and looking for a job?: No Are you interested in more education?: No Please select the resources that you would like help with: None Currently or been in a relationship where the following occur: No concerns reported THRIVE Score: 0 AUDIT C Alcohol Use Questionnaire (AUDIT-C) 1. How often do you have a drink containing alcohol?: Never 3. How often do you have six or more drinks on one occasion?: Never Total Score: 0 Score Reviewed/Action Taken: Yes MCKAY-7 AMB Questionnaire MCKAY-7 Date MCKAY - 7 assessed: 04/09/24 Feeling nervous, anxious, or on edge: 0 = Not at all Not being able to stop or control worryin = Not at all Worrying too much about different things: 0 = Not at all Trouble relaxin = Not at all Being so restless that it is hard to sit still: 0 = Not at all Becoming easily annoyed or irritable: 0 = Not at all Feeling afraid as if something awful might happen: 0 = Not at all Total MCKAY-7 score (0-4 normal; 5-9 mild; 10-14 moderate; 15-21 severe): 0 Source: Developed by Drs. Zachariah Holman, Milla Gonzales, Herman Heller and colleagues, with an educational latia from [employer]. Review of Systems Const Denies chills, Denies fatigue, Denies fever(s) and Denies headache(s) ENT Denies dysphagia, Denies dizziness, Denies otalgia, Denies headache(s), Denies neck pain, Denies odynophagia and Denies sore throat Card Denies chest pain, Denies irregular heart rhythm, Denies palpitations and Denies dyspnea Resp Denies chest congestion, Denies cough and Denies dyspnea GI Denies abdominal pain, Denies constipation, Denies dysphagia, Denies heartburn, Denies diarrhea, Denies nausea, Denies odynophagia and Denies vomiting Denies urinary frequency, Denies dysuria and Denies urinary urgency Musc Denies back pain, Denies arthralgias and Denies neck pain Skin/Breast Denies rash Neuro Denies dizziness, Denies headache(s) and Denies paresthesias Psych Denies anxiety and Denies depression Endo Denies fatigue and Denies palpitations Mirza/Lymph Denies easy bruising Physical exam (Primary Care) Vital Signs: Last Vital Signs Pulse 78 04/09/24 10:21 BP 122/68 04/09/24 10:21 Pulse Ox 97 04/09/24 10:21 Oxygen Delivery Method Room Air 04/09/24 10:21 BMI result Body Mass Index 28.6 Tobacco/Smoking Status: Tobacco use Status Tobacco use date assessed 04/09/24 04/09/24 10:29 Patient Tobacco Use Status Never used Tobacco 04/09/24 10:29 e-Cigarette/Vaping Use Never Used 04/09/24 10:29 PHQ-9: PHQ-9 Score PHQ-9: Total score 0 04/09/24 10:53 Depression Screening Interpretation: Negative Thrive Assessment: Date of Thrive Assessment Date Thrive assessed 04/09/24 04/09/24 10:29 Currently or been in a relationship where the following occur: No concerns reported Const General: no acute distress and alert HENMT Ears: TM's normal bilaterally and EAC's normal Throat: Yes posterior oropharynx normal and Yes tonsils normal (no TP congestion) Neck Neck: Yes supple and No lymphadenopathy Thyroid: Thyroid normal Resp Auscultation: clear to auscultation bilaterally, no rales and no wheezes Cardio Rate: regular rate Rhythm: regular rhythm Heart sounds: no murmurs GI Palpation (GI): Soft to palpation and nontender Auscultation: normal bowel sounds General: Yes no CVA tenderness Back/Spine/Pelvis Back: no CVA tenderness Thoracic/Lumbar Spine: No lumbar spinal tenderness Skin Rashes: no rashes Extrem General: Yes no clubbing, cyanosis or edema Immunizations Boostrix Tdap 2.5 Lf unit-8 mcg-5 Lf/0.5 mL intramuscular syringe Performing Provider: Jonny Lam MD Performing Location: [facility] Administered by: DOYLE Capellan on 04/09/24 10:52 Dose Route Admin Location Dispensed Lot Number Expiration Date NDC Price Economist 0.5 mL IM Left Deltoid 0.5 mL [id number] 01/19/25 88410-757-89 [id number] VIS Given Date VIS Provided VIS Publication Date 04/09/24 Single Vaccine 20 Eligibility Eligibility Date Funding Source Not [facility] Eligible 04/09/24 Private Results Reviewed Results Reviewed: Laboratory Tests 04/02/24 04/02/24 08:50 08:56 WBC 6.6 Hgb 11.9 L Hct 38.5 Plt Count 116 L Sodium 143 Potassium 4.3 Creatinine 0.86 Estimated GFR > 60 Fasting Glucose 131 H Hemoglobin A1c % 5.9 Calcium 9.3 AST 31 ALT 29 Triglycerides 73 Cholesterol 113 LDL Cholesterol, Calc 52 HDL Cholesterol 47 25-OH Vitamin D Total 38.6 TSH 1.66 Ur Specific Lily 1.015 Urine Protein Negative Urine Glucose (UA) Negative Urine Blood Negative Urine Nitrite Negative Ur Leukocyte Esterase Negative Coding Level of Care Code Est Pt Level 4 (62061) Diagnoses NSTEMI (non-ST elevated myocardial infarction) I21.4 Pure hypercholesterolemia E78.00 Benign essential hypertension I10 Type 2 diabetes mellitus without complication, with no history of insulin use E11.9 Gastritis without bleeding, unspecified chronicity, unspecified gastritis type K29.70 Gastritis type: unspecified gastritis Chronicity: unspecified Gastritis bleeding: without bleeding Thrombocytopenia D69.6 Vitamin D deficiency E55.9 Glaucoma of both eyes, unspecified glaucoma type H40.9 Glaucoma type: unspecified Insomnia, unspecified type G47.00 Insomnia type: unspecified Anxiety F41.9 Overweight (BMI 25.0-29.9) E66.3 Additional Codes PHQ-9 - 55533 - PHQ-9 Billing: Yes ([id number]) Assessment & Plan Assessment & Plan (1) NSTEMI (non-ST elevated myocardial infarction): Code(s): I21.4 - Non-ST elevation (NSTEMI) myocardial infarction Category: Medical Plan: Patient had previous non-ST elevation NE in the setting of elevated blood pressures with no significant coronary artery disease Cardiac catheterization done at [facility] in 2019 showed NO significant coronary artery disease Reinforced primary risk factor modification according to ATP III guidelines Continue low dose Aspirin 81 mg QD Follow up with cardiology as scheduled (2) Pure hypercholesterolemia: Code(s): E78.00 - Pure hypercholesterolemia, unspecified Category: Medical Plan: Results of her labs done last week reviewed and discussed with patient Reinforced low cholesterol diet Continue Atorvastatin 40 mg QD Will recheck her labs and fasting lipids in 4 months for follow up (3) Benign essential hypertension: Code(s): I10 - Essential (primary) hypertension Category: Medical Plan: Reinforced low sodium diet - goal is systolic BP of at least 130 to 140 mm or less Continue Losartan 100 mg QD, Amlodipine 2.5 mg QD and Carvedilol 6.25 mg BID (4) Type 2 diabetes mellitus without complication, with no history of insulin use: Code(s): E11.9 - Type 2 diabetes mellitus without complications Category: Medical Plan: Her HgbA1c increased slightly to 5.9% on her recent labs (was previously at 5.6% a few months ago in November 2023) - goal is at least < 7.0% Reinforced diabetic diet Continue Metformin ER 500 mg BID and Januvia 100 mg QD Follow up with structures technician as scheduled for diabetic teaching and diet counseling (5) Gastritis: Code(s): K29.70 - Gastritis, unspecified, without bleeding Category: Medical Qualifiers: Gastritis type: unspecified gastritis Chronicity: unspecified Gastritis bleeding: without bleeding Qualified Code(s): K29.70 - Gastritis, unspecified, without bleeding Plan: S/P repeat EGD and colonoscopy with Dr. Mitchell on 09/03/21 Dietary restrictions reinforced Continue Omeprazole 20 mg QD Follow up with GI (Dr. Mitchell) as scheduled (6) Thrombocytopenia: Code(s): D69.6 - Thrombocytopenia, unspecified Category: Medical Plan: Stable; patient has had no acute issues with bleeding lately Will continue to monitor her platelet count regularly (7) Vitamin D deficiency: Code(s): E55.9 - Vitamin D deficiency, unspecified Category: Medical Plan: Continue Vitamin D3 2000 units QD (8) Glaucoma of both eyes: Code(s): H40.9 - Unspecified glaucoma Category: Medical Qualifiers: Glaucoma type: unspecified Qualified Code(s): H40.9 - Unspecified glaucoma Plan: Continue Dorzolamide HCl-Timolol eye drops as instructed Follow up with ophthalmology as scheduled (9) Insomnia: Code(s): G47.00 - Insomnia, unspecified Category: Medical Qualifiers: Insomnia type: unspecified Qualified Code(s): G47.00 - Insomnia, unspecified Plan: Patient stated in the past that she has trouble sleeping at night at times, mostly from thinking too much Upon our advice, she tried taking some OTC Melatonin 3 mg Q HS, which she states helped somewhat - can continue Melatonin 3 mg Q HS PRN (10) Anxiety: Code(s): F41.9 - Anxiety disorder, unspecified Category: Medical Plan: Continue Hydroxyzine 25 mg TID PRN (11) Overweight (BMI 25.0-29.9): Code(s): E66.3 - Overweight Category: Medical Plan: Reinforced diet/exercise as tolerated/lose weight Plan Tdap booster given today Patient and her have been advised to speak to her pharmacist about her other vaccines to see if she has received them recently or not - a copy of the current recommended vaccines for patients her age has been provided to them Follow up in 4 months Orders: Orders Comprehensive [place]. Panel Fast 4 Months E78.00 - Pure hypercholesterolemia, unspecified UA CC w/rflx Micro + Cult 4 Months R30.0 - Dysuria Hemoglobin A1c 4 Months E11.9 - Type 2 diabetes mellitus without complications TDaP Immunization Today Z23 - Encounter for immunization Complete Blood Count Auto Diff 4 Months D64.9 - Anemia, unspecified TSH reflex Free T4 4 Months E78.00 - Pure hypercholesterolemia, unspecified Lipid Panel 4 Months E78.00 - Pure hypercholesterolemia, unspecified Microalbumin, Random (w Creat) 4 Months E11.9 - Type 2 diabetes mellitus without complications
== END 2024-04-09 10:53 | disposition home or self-care (01) ==
PROVIDERS: PCP Internal Medicine; Visit Provider Internal Medicine
DX: E11.9 Type 2 diabetes mellitus without complications (principal); I21.4 Non-ST elevation (NSTEMI) myocardial infarction; D69.6 Thrombocytopenia, unspecified; E78.00 Pure hypercholesterolemia, unspecified; I10 Essential (primary) hypertension; K29.70 Gastritis, unspecified, without bleeding; E55.9 Vitamin D deficiency, unspecified; H40.9 Unspecified glaucoma; G47.00 Insomnia, unspecified; F41.9 Anxiety disorder, unspecified; E66.3 Overweight; Z23 Encounter for immunization

== ENCOUNTER → 2024-04-09 10:14 | Outpatient (BNVA) | payer MEDICARE, MEDICAID, SELFPAY | PROVIDERS: PCP Internal Medicine; Visit Provider Internal Medicine | DX: E11.9 Type 2 diabetes mellitus without complications (principal); I21.4 Non-ST elevation (NSTEMI) myocardial infarction; E78.00 Pure hypercholesterolemia, unspecified; I10 Essential (primary) hypertension; K29.70 Gastritis, unspecified, without bleeding; D69.6 Thrombocytopenia, unspecified; E55.9 Vitamin D deficiency, unspecified; H40.9 Unspecified glaucoma; G47.00 Insomnia, unspecified; F41.9 Anxiety disorder, unspecified; E66.3 Overweight; Z23 Encounter for immunization; Z68.28 Body mass index [BMI] 28.0-28.9, adult | CPT/HCPCS: 90471; 90715; 96127; 99212 ==

== ENCOUNTER 2024-04-23 08:32 | Outpatient (REF) | payer MEDICARE, MEDICAID, SELFPAY | END 2024-04-23 08:33 | disposition home or self-care (01) | LOC: HO.MAMMO 08:32 | PROVIDERS: PCP Internal Medicine; Visit Provider Internal Medicine | DX: Z13.820 Encounter for screening for osteoporosis (principal); Z78.0 Asymptomatic menopausal state | CPT/HCPCS: 77080 ==

== ENCOUNTER → 2024-04-23 08:45 | Outpatient (BNV) | payer MEDICARE, MEDICAID, SELFPAY | PROVIDERS: PCP Internal Medicine; Visit Provider Radiology Diagnostic Radiology | DX: E28.39 Other primary ovarian failure (principal) | CPT/HCPCS: 77080 ==

== ENCOUNTER 2024-06-25 09:52 | Outpatient (AMB) | payer MEDICARE, MEDICAID, SELFPAY ==
[2024-06-25 10:02] VITALS: BP 124/60; PULSE 73; BMI 28.1
--- NOTE | 2024-06-25 10:02 | A.OFFVIS_ITS ---
Vital Signs 06/25/24 10:02 Height 5 ft 3 in Weight 158 lb 11.725 oz BMI 28.1 BP 124/60 Blood Pressure Location Lt brachial Position Sitting Pulse 73 Pulse Source Monitor Intake Visit Reasons: 1 yr f/up Maintenance Instructor Required: No Manufacturing Executive: Manufacturing Executive Present Allergies Penicillins [PENICILLINS] Allergy (Mild, Verified 06/25/24 10:05) HIVES,RASH Medication List - Last Reconciled 06/25/24 by Danielle Joshua [employer]KE TECHNICIAN-C amlodipine 2.5 mg PO DAILY 90 days atorvastatin 40 mg PO DAILY carvedilol 6.25 mg PO BID dorzolamide-timolol 22.3-6.8 mg/mL 1 drp ophthalmic (eye) BID latanoprost 0.005% 1 drp ophthalmic (eye) BEDTIME losartan 100 mg PO DAILY metformin ER 500 mg PO BID 90 days sitagliptin phosphate (Januvia) 100 mg PO DAILY 90 days timolol maleate 0.5% 1 drp ophthalmic (eye) BID HPI HPI 1 yr f/up: Details: Opal is a 79-year-old female with past medical history of hypertension, hyperlipidemia, diabetes, secondary NSTEMI who presents for follow-up. Today she states that she has been doing well since her last visit 07/13/2023. She has no concerning symptoms. She denies chest discomfort, shortness of breath, palpitations or lightheadedness. She is able to climb flight of stairs in her home without any difficulty. She remains active with housework. No routine exercise. She is taking all meds as directed. Daughter present and assisting with Finnish translation at their request, permit signed. [facility] Medical History Cataract Low back pain Post-menopausal Overweight (BMI 25.0-29.9) Anxiety Glaucoma of both eyes Vitamin D deficiency Thrombocytopenia Gastritis Type 2 diabetes mellitus without complication, with no history of insulin use Pure hypercholesterolemia Benign essential hypertension NSTEMI (non-ST elevated myocardial infarction) Surgical History History of cataract surgery Hx of section S/P cardiac catheterization (~2019) History of colonoscopy Family History Father CVD (cardiovascular disease) Mother CVD (cardiovascular disease) Brother CVD (cardiovascular disease) Social History Housing: House Alcohol intake: never Patient Tobacco Use Status: Never used Tobacco e-Cigarette/Vaping Use: Never Used Second Hand Smoke Exposure: Yes service: No Current occupational status: disabled Cognitive needs: No Hearing needs: Yes Vision needs: Yes Review of Systems Const All systems reviewed & are unremarkable except as noted in HPI and below ENT Denies dizziness Card Denies chest pain, Denies chest pain at rest, Denies chest pain with activity, Denies rapid heart rate, Denies pedal edema, Denies edema, Denies leg edema, Denies lightheadedness, Denies palpitations, Denies dyspnea, Denies dyspnea on exertion and Denies orthopnea Resp Denies cough, Denies dyspnea and Denies dyspnea on exertion GI Denies hematochezia and Denies change in stool character Musc Details: ankle arthritis Denies abnormal gait, Reports limited range of motion, Denies muscle cramps, Denies muscle weakness, Denies numbness, Denies radiating pain into limb, Denies stiffness and Denies tingling Neuro Denies abnormal gait, Denies dizziness, Denies numbness and Denies tingling Endo Denies palpitations Physical Exam Vital Signs: Last Vital Signs Pulse 73 06/25/24 10:02 BP 124/60 06/25/24 10:02 BMI result Body Mass Index 28.1 Const General: cooperative, healthy appearing, comfortable and no acute distress Orientation/consciousness: patient oriented x3 Neck Neck: Yes normal visual inspection Resp Effort & Inspection: normal respiratory effort Auscultation: clear to auscultation bilaterally, no rales, no rhonchi and no wheezes Cardio Rate: regular rate Rhythm: regular rhythm Heart sounds: S1 normal heart sound present, S2 normal heart sound present, no murmurs and no rubs Neuro General: patient oriented x3 Extrem General: Yes normal to inspection, No no pedal edema and No calf tenderness Psych Appearance: grossly normal Mental Status: mental status grossly normal Speech and movement: Normal speech and movement present Office Procedures EKG Details: Today, read by me, normal sinus rhythm, no significant change from prior, rate 73, QTC 405 milliseconds [id number], Complete Assessment & Plan Assessment & Plan (1) Benign essential hypertension: Code(s): I10 - Essential (primary) hypertension Category: Medical Plan: Hx of HTN, with prior secondary NSTEMI in the setting of uncontrolled hypertension. Last echo 03/25/19 shows EF 55-60%, mild AR, MR, TR, pulm HTN. Labs done 04/02/2024 showed creatinine 0.86. EKG done today showing normal sinus rhythm, rate 73. Blood pressure is well controlled at this time, currently 124/60. Will have her continue on Amlodipine, Carvedilol, Losartan. Low-salt diet, weight control reviewed and continue activity as tolerated. Cardiology follow-up in 12 months, sooner if needed. (2) Pure hypercholesterolemia: Code(s): E78.00 - Pure hypercholesterolemia, unspecified Category: Medical Plan: [place] LDL goal < 70 in pt with DM. Labs 07/12/23 shows LDL 54, normal got, gpt. Due for a recheck of lipid profile. Continue atorvastatin 40mg daily (3) Type 2 diabetes mellitus without complication, with no history of insulin use: Code(s): E11.9 - Type 2 diabetes mellitus without complications Category: Medical Plan: Hgb A1C goal < 7. Followed by her PCP. (4) NSTEMI (non-ST elevated myocardial infarction): Code(s): I21.4 - Non-ST elevation (NSTEMI) myocardial infarction Category: Medical Plan: History of NSTEMI in the setting of uncontrolled hypertension. No report of anginal symptoms. Signs and symptoms of angina reviewed. Plan Time spent on chart review, documentation, interview and assessment Coding Level of Care Code Est Pt Level 4 (46442) Complex EM visit Add On G2211 Diagnoses Benign essential hypertension I10 Pure hypercholesterolemia E78.00 Type 2 diabetes mellitus without complication, with no history of insulin use E11.9 NSTEMI (non-ST elevated myocardial infarction) I21.4 CPT Codes EKG - CPT: [id number], Complete ([id number]) Time Spent (min) 28
--- OUTSIDE RECORDS SUMMARY | 2024-06-25 11:28 | XMS_ITS | Patient Health Record ---
Author Organization [facility] Address [address] [place] [address] Care Team Providers Care Ben Day Artist Name Role Phone Gisselle Lam MDh Primary Care Provider Zachariah Gilliland Unavailable [phone] ALLERGIES Allergen (clinical drug ingredient) Drug/Non Drug Allergy documented on EMR Reaction Allergy Type Onset Date Status Penicillin Unknown Drug Allergy Active REASON FOR REFERRAL No Information MEDICATIONS Medication SIG (Take, Route, Frequency, Duration) Notes Start Date End Date Status Januvia 100 MG Oral for 90 Act eloy Losartan Potassium-HCTZ 100-25 MG 1 tablet Orally Once a day for 30 day(s) Active amLODIPine Besylate 2.5 MG TAKE 1 TABLET BY MOUTH DAILY Oral for 90 Active Atorvastatin Calcium 40 MG 1 tablet Oral ly Once a day for 30 day(s) Active Carvedilol 6.25 MG 1 tablet with food O rally Twice a day for 30 day(s) Active amLODIPine Besy-Benazepril HCl 2.5-10 MG as directed Orally Active metFORMIN HCl 500 MG 1 tablet with a taylor l Orally Once a day for 30 day(s) Active IMMUNIZATIONS Vaccine Route Administration Date Status Comme nts Influenza Unknown 02/10/2021 Administered Influenza Unknown 01/22/2022 Administered SOCIAL HISTORY Sex Assigned At : Social History Observation Description Sex Assigned At Unknown PROBLEMS Problem Type ICD Code Onset Dates Problem Status W/U Status Risk SNOMED Code Notes Problem Encounter for screening for malignant neoplasm of colon (Z12.11) Active confirmed 454240144 Problem Helicobacter pylori ab+ (R76.8) Active confirmed 418144017 Problem Liver lesion (K76.9) Active confirmed Lesion of liver (219834695) Problem Hx of adenomatous colonic polyps (Z86.010) Active confirmed 797931797 Problem Abnormal MRI, liver (R93.2) Active confirmed Abnormal findings diagnostic imaging of liver and biliary tract (441187488) Problem Gastroesophageal reflux (K21.9) Active confirmed Esophageal reflux finding (188586759) Problem Abdominal discomfort, epigastric (R10.13) Active confirmed 454923689 Problem 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 Pancreatic duct disorder (370998801) Problem Diverticulosis of colon (K57.30) Active confirmed Diverticulosi s of colon (360569203) Problem Gastroesophageal reflux disease, unspecified whether esophagitis present (K21.9) Active confirmed 761691844 VITAL SIGNS Blood pressure diastolic 00 mm Hg 08/03/2023 Height 62 in 08/03/2023 Blood pressure systolic 00 mm Hg 08/03/2023 Weight 159 lbs 08/03/2023 BMI 29.08 kg/m2 08/03/2023 Encounters Encounter Location Date Provider Diagnosis [facility] [address] [place] [address] 08/03/2023 Zachariah Mitchell Abnormal MRI, liver R93.2 ; Hx of adenomatous colonic polyps Z86.010 and Abnormality of pancreatic duct Q45.3 ASSESSMENTS Encounter Date Diagnosis Assessment Notes Treatment Notes Treatment Clinical Notes 08/03/2023 Hx of adenomatous colonic polyps (ICD-10 - Z86.010) 08/03/2023 Abnormal MRI, liver (ICD-10 - R93.2) 08/03/2023 Abnormality of pancreatic duct (ICD-10 - Q45.3) PLAN OF TREATMENT Pending Test Test Name Order Date BUN 02/22/2022 BUN 09/26/2021 CREATININE 02/22/2022 CREATININE 09/26/2021 LIVER PROFILE 09/26/2021 LIVER PROFILE 02/22/2022 CEA 09/07/2021 ALPHA-FETOPROTEIN,TUMOR MARKER CA 19-9 09/26/2021 MRI ABD W&WO CONTRAST 02/22/2022 MRI ABD W&WO CONTRAST 09/26/2021 US ABD 07/29/2021 Amylase 09/26/2021 Lipase 09/26/2021 Alpha Fetoprotein 02/22/2022 Future Test Test Name Order Date COLONOSCOPY 02/12/2015 UPPER GI ENDOSCOPY 07/29/2021 COLONOSCOPY 07/29/2021 Insurance Providers Payer Name Payer Address Payer Phone Subscriber Number Group Number Insured Name Patient Relationship to Insured Coverage Start Date Coverage End Date [facility] [address] [facility] [place] [phone] [id number] ORIN BORJA Self - patient is the insured MEDICAID OF [facility] [address] [place] [phone] [id number] ORIN BORJA Self - patient is the insured MEDICAL (GENERAL) HISTORY Medical History History ICD Code HTN Denies [place],DM,CVA,Lung disease,renal dise ase Glaucoma Neg colonoscopy in 08/2004 ex cept for a hyperplastic polyp, diverticulosis, and int. hemorrhoids Hyperlipidemia--on diet Positive H.pylori serology in 10/2013--no t treated--she was asymptomatic Negative abdominal ultrasound in November of 2013 Colonoscopy 04/2015 with a small tubular adenoma removed GERD--upper endoscopy in August of 2021 revealed only a small hiatal hernia but no evidence of esophagitis or Bentley's esophagus Colonoscopy in August of 2021 r evealed 2 small tubular adenomas that were removed 08/2021 U/S was negative for gallstones, but raised a suspicion of a dilated pancreatic duct. MRI of the liver in September of 2021 reveals an indeterminate 1.3 cm lesion and a followup MRI with Eovist was recommended for the end 2021---the MRCP revealed a normal pancreatic duct and no sign of a mass Followup MRI with Eovist con trast in February of 2022 did not reveal any suspicious liver lesions nor pancreas abnormalities Surgical History Surgery Date(Month/Year) C-sections x 3 Cataracts bilaterally
--- OUTSIDE RECORDS SUMMARY | 2024-06-25 11:29 | XMS_ITS ---
Author Organization [facility] Address [address] [place] [address] Care Team Providers Care Mussel Farmer Name Role Phone Genaro MORE, [place] Primary Care Provider Zachariah Gilliladn [phone] ALLERGIES Allergen (clinical drug ingredient) Drug/Non Drug Allergy documented on EMR Reaction Allergy Type Onset Date Status Penicillin Unknown Drug Allergy Active REASON FOR VISIT Patient presents today for gerd MEDICATIONS Medication SIG (Take, Route, Frequency, Duration) Notes Start Date End Date Status Januvia 100 MG Oral for 90 Act eloy Losartan Potassium-HCTZ 100-25 MG 1 tablet Orally Once a day for 30 day(s) Active amLODIPine Besylate 2.5 MG TAKE 1 TABLET BY MOUTH DAILY Oral for 90 Active amLODIPine Besy-Benazepril HCl 2.5-10 MG as directed Orally Active metFORMIN HCl 500 MG 1 tablet with a taylor l Orally Once a day for 30 day(s) Active Atorvastatin Calcium 40 MG 1 tablet Oral ly Once a day for 30 day(s) Active Carvedilol 6.25 MG 1 tablet with food O rally Twice a day for 30 day(s) Active VITAL SIGNS Blood pressure systolic 00 mm Hg 08/03/19 24 Blood pressure diastolic 00 mm Hg 024 Height 62 in 08/03/2023 Weight 159 lbs 08/03/2023 BMI 29.08 kg/m2 08/03/2023 Encounters Encounter Location Date Provider Diagnosis [facility] [address] [place] [address] 08/03/2023 Zachariah Mitchell Abnormal MRI, liver R93.2 ; Hx of adenomatous colonic polyps Z86.010 and Abnormality of pancreatic duct Q45.3 ASSESSMENTS Encounter Date Diagnosis Assessment Notes Treatment Notes Treatment Clinical Notes 08/03/2023 Abnormal MRI, liver (ICD-10 - R93.2) 08/03/2023 Hx of adenomatous colonic polyps (ICD-10 - Z86.010) 08/03/2023 Abnormality of pancreatic duct (ICD-10 - Q45.3) PLAN OF TREATMENT Next Appt Details Follow Up: prn, Reason: Progress Notes * Examination Category Sub-Category Detail Notes General Examination GENERAL APPEARANCE: pleasant , well nourished, well developed, in no acute distress EYES: sclera non-icteric NECK/THYROID: no cervical lymphade nopathy, neck supple HEART: S1, S2 normal LUNGS: clear to auscultatio n bilaterally ABDOMEN: normal bowel sounds, no guarding or rigidity, no hepatosplenomegaly, no masses palpable, soft, nontender, nondistended. NEUROLOGIC: alert and oriented SKIN: nonjaundiced, no spi roberta angiomata. EXTREMITIES: no edema ORAL CAVITY: mucosa moist
== END 2024-06-25 10:46 | disposition home or self-care (01) ==
PROVIDERS: PCP Internal Medicine; Visit Provider Nurse Practitioner Family
DX: I10 Essential (primary) hypertension (principal); E78.00 Pure hypercholesterolemia, unspecified; E11.9 Type 2 diabetes mellitus without complications; I21.4 Non-ST elevation (NSTEMI) myocardial infarction
CPT/HCPCS: 93010; 99214; G2211

== ENCOUNTER → 2024-06-25 09:52 | Outpatient (BNVA) | payer MEDICARE, MEDICAID, SELFPAY | PROVIDERS: PCP Internal Medicine; Visit Provider Nurse Practitioner Family | DX: I25.2 Old myocardial infarction (principal); I10 Essential (primary) hypertension; E78.00 Pure hypercholesterolemia, unspecified; E11.9 Type 2 diabetes mellitus without complications | CPT/HCPCS: 93005; 99212 ==

== ENCOUNTER 2024-07-24 12:35 | Outpatient (AMB) | payer MEDICARE, MEDICAID, SELFPAY ==
[2024-07-24 12:52] VITALS: BMI 28.7
--- NOTE | 2024-07-24 12:52 | A.OFFVIS_ITS ---
VS Expanded 07/24/24 12:52 Height 5 ft 3 in Weight 161 lb 13.109 oz BMI 28.7 Intake Visit Reasons: T2DM Allergies Penicillins [PENICILLINS] Allergy (Mild, Verified 06/25/24 10:05) HIVES,RASH Nutrition Presentation Details: Pt presents for MNT f/u for T2DM Pt presents with during the appointment. Pt reports doing well, takes a daily MVI for over 50 Pt reports working on reducing intake of sweets and following healthy plate method, eating a variety of foods food frequency fruits: 0-1/d non starchy vex/wk dairy: 2-3/d starches > 20/d, choosing whole grains, legumes fish: 0-1/wk physical activity: ADL, reports having a stationary bike at home but not using it etoh/smoking: denies BS Monitoring Most Recent Diabetes Results: Microalb/Creat Ratio 8.8 ug/mg cr (<30) 04/02/24 Cholesterol 113 mg/dL (<200) 04/02/24 HDL Cholesterol 47 mg/dL (>40) 04/02/24 Triglycerides 73 mg/dL (<150) 04/02/24 Creatinine 0.86 mg/dL (0.5-1.4) 04/02/24 Blood Urea Nitrogen 13 mg/dL (9-16) 04/02/24 Sodium 143 mmol/L (135-145) 04/02/24 Potassium 4.3 mmol/L (3.3-5.1) 04/02/24 Chloride 109 mmol/L (96-108) H 04/02/24 Carbon Dioxide 24 mmol/L (22-29) 04/02/24 Calcium 9.3 mg/dL (8.4-10.2) 04/02/24 AST 31 U/L (5-31) 04/02/24 ALT 29 U/L (0-31) 04/02/24 Total Protein 7.0 g/dL (6.5-8.0) 04/02/24 Albumin 4.0 g/dL (3.5-5.0) 04/02/24 [facility] Medical History Cataract Low back pain Post-menopausal Overweight (BMI 25.0-29.9) Anxiety Glaucoma of both eyes Vitamin D deficiency Thrombocytopenia Gastritis Type 2 diabetes mellitus without complication, with no history of insulin use Pure hypercholesterolemia Benign essential hypertension NSTEMI (non-ST elevated myocardial infarction) Surgical History History of cataract surgery Hx of section S/P cardiac catheterization (~2018) History of colonoscopy Family History Father CVD (cardiovascular disease) Mother CVD (cardiovascular disease) Brother CVD (cardiovascular disease) Social History Housing: House Alcohol intake: never Patient Tobacco Use Status: Never used Tobacco e-Cigarette/Vaping Use: Never Used Second Hand Smoke Exposure: Yes service: No Current occupational status: disabled Cognitive needs: No Hearing needs: Yes Vision needs: Yes Assessment & Plan Assessment & Plan (1) Type 2 diabetes mellitus without complication, with no history of insulin use: Code(s): E11.9 - Type 2 diabetes mellitus without complications Category: Medical Plan: Used wt: 73kg( 08/16) Est kcal needs as per 25 kcal/kg bw: 1875 (40% carb, 30% protein/fat) Est fluid needs as per 25-30 ml/d: 1875- 2250 Est prot per day as per 1 g/kg bw: 75 g/d Recommend fiber intake : 8-10 g per day and gradually increase to 25-28 g per day for women or as tolerated Recommend sodium intake per day : less than 2000 mg Educated patient on: ( R = reviewed V = verbalizes understanding N/R = needs review N/A = not applicable * Food sources of carbohydrate, adequate serving sizes and its role in various health conditions: R * Differences between complex carbohydrates a simple carbohydrates, role of fiber in diet: R * Differences between types of fats and role in diet (mono on saturated fat fatty acids, saturated fatty acids, trans fats): R * Food sources of sodium in salt and healthy modifications for heart health in kidney health: R, info provided * Vitamins and minerals: R , iron rich foods * Healthy plate method concept: R * Physical activity: Benefits a precaution: R * Hypoglycemia protocol (rule of 15): R, * Dietary prevention of Hyperglycemia: R Patient Instructions: Include iron rich foods in diet (spinach, legumes, nuts, seeds) have a smoothie with a fruit/spinach and nuts /water) 3 times a week keep active as able 10-15 min stationary bike 2-3 times/wk Coding Level of Care Code Nutr Indiv Subseq (91339) Diagnoses Type 2 diabetes mellitus without complication, with no history of insulin use E11.9 Time Spent (min) 24
--- OUTSIDE RECORDS SUMMARY | 2024-07-24 15:05 | XMS_ITS | Patient Health Record ---
Author Organization [facility] Address [address] [place] [address] Care Team Providers Care Rock Loader Name Role Phone Jonny Lam MD Primary Care Provider Zachariah Gilliland Unavailable [phone] Allergies Allergen (clinical drug ingredient) Drug/Non Drug Allergy documented on EMR Reaction Allergy Type Onset Date Status Penicillin Unknown Drug Allergy Active Reason For Referral No Information Medications Medication SIG (Take, Route, Frequency, Duration) Notes [...] Once a day for 30 day(s) Active Immunizations Vaccine Route Administration Date Status Comme nts Influenza Unknown 02/10/2021 Administered Influenza Unknown 01/22/2022 Administered Problems Problem Type SNOMED Code ICD Code Onset Dates Problem Status W/U Status Risk Notes Problem 083976946 Encounter for screening for malignant neoplasm of colon (Z12.11) Active confirmed Problem 507503314 Helicobacter pyl urban ab+ (R76.8) Active confirmed Problem Lesion of liver (432349161) Liver lesion (K76.9) Active confirmed Problem 994154588 Hx of adenomatou s colonic polyps (Z86.010) Active confirmed Problem Abnormal findings diagnostic imaging of liver and biliary tract (578875944) Abnormal MRI, liver (R93.2) Active confirmed Problem Esophageal reflux finding (339909012) Gastroesophageal reflux (K21.9) Active confirmed Problem 744937368 Abdominal discomfort, epigastric (R10.13) Active confirmed Problem Pancreatic duct disorder (297683929) 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 Problem Diverticulosis of colon (391492787) Diverticulosis of colon (K57.30) Active confirmed Problem 407249650 Gastroesophageal reflux disease, unspecified whether esophagitis present (K21.9) Active confirmed Vital Signs Blood pressure diastolic 00 mm Hg 08/03/2023 Height 62 in 08/03/2023 Blood pressure systolic 00 mm Hg 08/03/2023 Weight 159 lbs 08/03/2023 BMI 29.08 kg/m2 08/03/2023 Encounters Encounter Location Date Provider Diagnosis [facility] [address] [place] [address] 08/03/2023 Zachariah Mitchell Abnormal MRI, liver R93.2 ; Hx of adenomatous colonic polyps Z86.010 and Abnormality of pancreatic duct Q45.3 Assessments Encounter Date Diagnosis (ICD Code) Assessment Notes Treatment Notes Treatment Clinical Notes Section Notes 08/03/2023 Hx of adenomatous colonic polyps (ICD-10 - Z86.010) Overall, Opal appears quite well. She is not having any new or worrisome GI complaints at the present time. We did review the findings on her MRI from February of 2022 and based on that I don't think she would need any further followup imaging studies of the liver or pancreas. Based on the findings on her upper endoscopy and colonoscopy from 2021 I don't think she needs any followup in that regard either. We did review that if things stay well she could simply see me on a p.r.n. basis. I did advise her to certainly call and she has any problems or questions I can be of assistance with future. Opal and her were very comfortable with this plan. Thank you again for allowing me to have participated in Opal's care. Please do not hesitate to contact me if I can be of any further assistance in the future. 08/03/2023 Abnormal MRI, liver (ICD-10 - R93.2) Overall, Opal appears quite well. She is not having any new or worrisome GI complaints at the present time. We did review the findings on her MRI from February of 2022 and based on that I don't think she would need any further followup imaging studies of the liver or pancreas. Based on the findings on her upper endoscopy and colonoscopy from 2021 I don't think she needs any followup in that regard either. We did review that if things stay well she could simply see me on a p.r.n. basis. I did advise her to certainly call and she has any problems or questions I can be of assistance with future. Opal and her were very comfortable with this plan. Thank you again for allowing me to have participated in Opal's care. Please do not hesitate to contact me if I can be of any further assistance in the future. 08/03/2023 Abnormality of pancreatic duct (ICD-10 - Q45.3) Overall, Opal appears quite well. She is not having any new or worrisome GI complaints at the present time. We did review the findings on her MRI from February of 2022 and based on that I don't think she would need any further followup imaging studies of the liver or pancreas. Based on the findings on her upper endoscopy and colonoscopy from 2021 I don't think she needs any followup in that regard either. We did review that if things stay well she could simply see me on a p.r.n. basis. I did advise her to certainly call and she has any problems or questions I can be of assistance with future. Opal and her were very comfortable with this plan. Thank you again for allowing me to have participated in Opal's care. Please do not hesitate to contact me if I can be of any further assistance in the future. Plan Of Treatment Pending Test Test Name Order Date BUN 09/26/2021 BUN 02/22/2022 CREATININE 09/26/2021 CREATININE 02/22/2022 LIVER PROFILE 09/26/2021 LIVER PROFILE 02/22/2022 CEA [...] Insured Coverage Start Date Coverage End Date [facility] [address] [address] [place] [id number] OPAL BORJA Self - patient is the insured MEDICAID OF [facility] [address] [place] [phone] [id number] OPAL BORJA Self - patient is the insured Medical (General) History Medical History History ICD Code HTN Denies [place],DM,CVA,Lung disease,renal dise ase Glaucoma Neg colonoscopy in [...]
--- OUTSIDE RECORDS SUMMARY | 2024-07-24 15:05 | XMS_ITS ---
Author Organization [facility] Address [address] [place] [address] Care Team Providers Care Deblocker Name Role Phone Genaro MORE, [place] Primary Care Provider Zachariah Gilliland [phone] Allergies Allergen (clinical drug ingredient) Drug/Non Drug Allergy documented on EMR Reaction Allergy Type Onset Date Status Penicillin Unknown Drug Allergy Active REASON FOR VISIT Patient presents today for gerd Medications Medication SIG (Take, Route, Frequency, Duration) [...] Twice a day for 30 day(s) Active Vital Signs Blood pressure systolic 00 mm Hg 08/03/19 24 Blood pressure diastolic 00 mm Hg 024 Height 62 in 08/03/2023 Weight 159 lbs 08/03/2023 BMI 29.08 kg/m2 08/03/2023 Encounters Encounter Location Date Provider Diagnosis [facility] [address] [place] [address] 08/03/2023 Zachariah Mitchell Abnormal MRI, liver R93.2 ; Hx of adenomatous colonic polyps Z86.010 and Abnormality of pancreatic duct Q45.3 Assessments Encounter Date Diagnosis (ICD Code) Assessment Notes Treatment Notes Treatment Clinical Notes Section Notes 08/03/2023 Abnormal MRI, liver (ICD-10 - [...] any further assistance in the future. 08/03/2023 Hx of adenomatous colonic polyps (ICD-10 [...] assistance in the future. Plan Of Treatment Next Appt Details Follow Up: prn, Reason: Progress Notes * OPAL BORJA MDOB:1945 ([age] yo F)Acc No.[id number]:08/03/2023 Progress Notes Patient:?OPAL BORJA Provider:?Zachariah Mitchell MD :1945???Age:78 Y???Sex:Female D ate:08/03/2023 Address:[address] [place], [place] [id number] Pcp:Jonny Lam MD Subjective: * Chief Complaints: * ???Patient presents today fo r gerd * HPI: ???incontinence:? I saw Opal in followup today in regard to her previous history of abnormal imaging studies of her pancreas and liver. She was accompanied by her . ?I last saw Opal in February of 2022. Subsequent to that she did have her followup MRI of the abdomen. This did not reveal any suspicious lesions in the liver nor any significant findings in the pancreas. She presently feels very well. She enjoys a good appetite, without any significant heartburn or dysphagia. Her bowel movements have been regular and without any signs of bleeding. She denies abdominal pain, jaundice, nor unintentional weight loss. ?Her laboratories from July 11 revealed a normal hemoglobin 12.4 and normal MCV, normal chemistries and renal function, and normal LFTs. * ROS:?General/Constitutional:?Change in appetite?denies.?Chills?denies.?Fatigue?denies.?Ophthalmologic:?Patient denies? Negative..?ENT:?Patient denies?Negative..?Respiratory:?Patient denies?No coughing/hemoptysis..?Cardiovascular:?Patient denies? No chest pain/orthopnea..?Gastrointestinal:?Comments?See HPI for details.?Genitourinary:?Patient denies? No dysuria/hematuria..?Musculoskeletal:?Patient denies? No specific arthralgias/myalgias..?Skin:?Patient denies?No rash/pruritus..?Neurologic:?Patient denies? No headaches/seizures..?Psychiatric:?Patient denies?Negative..? * Medical History:? * Surgical History:?C-sections x 3 Cataracts bilaterally * Hospitalization/Major Diagno stic Procedure:?No Hospitalization History. * Family History:?Father: dece ased, diagnosed with Heart disease.?Mother: , diagnosed with Heart disease.? Denies any colorectal cancer. * Social History:?Tobacco Use:?Tobacco Use/Smoking?Are you a: nonsmoker.?Drugs/Alcohol:?Alcohol Screen?Points: 0, Interpretation: Negative.?Miscellaneous:?Marital status: . Occupation: retired. ???Nonsmoker; no significant alcohol. * Medications:?TakingCarvedilo l 6.25 MG Tablet 1 tablet with food Orally Twice a dayAtorvastatin Calcium 40 MG Tablet 1 tablet Orally Once a daymetFORMIN HCl 500 MG Tablet 1 tablet with a meal Orally Once a dayamLODIPine Besy-Benazepril HCl 2.5- 10 MG Capsule as directed Orally Losartan Potassium-HCTZ 100-25 MG Tablet 1 tablet Orally Once a dayJanuvia 100 MG Tablet Oral amLODIPine Besylate 2.5 MG Tablet TAKE 1 TABLET BY MOUTH DAILY Oral Medication List reviewed and reconciled with the patientTaking Carvedilol 6.25 MG Tablet 1 tablet with food Orally Twice a dayTaking Atorvastatin Calcium 40 MG Tablet 1 tablet Orally Once a dayTaking metFORMIN HCl 500 MG Tablet 1 tablet with a meal Orally Once a dayTaking amLODIPine Besy-Benazepril HCl 2.5-10 MG Capsule as directed Orally Taking Losartan Potassium-HCTZ 100-25 MG Tablet 1 tablet Orally Once a dayTaking Januvia 100 MG Tablet Oral Taking amLODIPine Besylate 2.5 MG Tablet TAKE 1 TABLET BY MOUTH DAILY Oral Medication List reviewed and reconciled with the patient * Allergies:?Penicillinyes[All ergies Verified] Objective: * Vitals:?Wt: 159 lbs, Ht: 62 in, BMI:29.08 Index, BP: 00/00 mm Hg. * Examination: ???General Examination: ?GENERAL APPEARANCE:?pleasant, well nourished, well developed, in no acute distress.?EYES:?sclera non-icteric.?ORAL CAVITY:?mucosa moist.?NECK/THYROID:?no cervical lymphadenopathy, neck supple.?SKIN:?nonjaundiced, no spider angiomata..?HEART:?S1, S2 normal.?LUNGS:?clear to auscultation bilaterally.?ABDOMEN:?normal bowel sounds, no guarding or rigidity, no hepatosplenomegaly, no masses palpable, soft, nontender, nondistended..?EXTREMITIES:?no edema.?NEUROLOGIC:?alert and oriented.? Assessment: * Assessment: 1.?Abnormal MRI, liver - R93 .2 (Primary)?2.?Hx of adenomatous colonic polyps - Z86.010?3.?Abnormality of pancreatic duct - Q45.3? Overall, Opal appears quite w ell. She is not having any new or [...] of any further assistance in the future. Plan: * Treatment: * Procedure Codes:?1036F TOBAC CO NON-HHUMU4436 BP SCR NOT PRFRM REC REASON NOS * Preventive Medicine:? ??Counseling:?Care goal follow-up plan:?Above Normal BMI Follow-up?Giving encouragement to exercise,?BMI management provided?Yes.? ??Urinary Incontinence:?Urinary Incontinence?Assessment:?Absent,?Plan of care documented:?No, reason not specified.? * Follow Up:?prn * * Sign off status: Completed true * Provider:?Zachariah Mitchell MD Date:? 024 Generated for Brenda curiel/Humberto/Vasiliyitting on:?07/24/2024 03:04 PM EDT History and Physical Notes * HPI (History of Present Illness) Category Sub-Category Detail Notes Category Not es incontinence I saw Opal in followup today in regard to her previous history of abnormal imaging studies of her pancreas and liver. She was accompanied by her . I last saw Opal in February of 2022. Subsequent to that she did have her followup MRI of the abdomen. This did not reveal any suspicious lesions in the liver nor any significant findings in the pancreas. She presently feels very well. She enjoys a good appetite, without any significant heartburn or dysphagia. Her bowel movements have been regular and without any signs of bleeding. She denies abdominal pain, jaundice, nor unintentional weight loss. Her laboratories from July 11 revealed a normal hemoglobin 12.4 and normal MCV, normal chemistries and renal function, and normal LFTs. Examination Category Sub-Category Detail Notes Category Not es General Examination GENERAL APPEARANCE: pleasant , well [...]
== END 2024-07-24 13:21 | disposition home or self-care (01) ==
LOC: HO.ENCR 12:36
PROVIDERS: PCP Internal Medicine; Visit Provider Dietitian, Registered
DX: E11.9 Type 2 diabetes mellitus without complications (principal)

== ENCOUNTER → 2024-07-24 12:35 | Outpatient (BNVA) | payer MEDICARE, MEDICAID, SELFPAY | PROVIDERS: PCP Internal Medicine; Visit Provider Dietitian, Registered | DX: E11.9 Type 2 diabetes mellitus without complications (principal) | CPT/HCPCS: 97803 ==

== ENCOUNTER 2024-08-01 08:13 | Outpatient (REF) | payer MEDICARE, MEDICAID, SELFPAY ==
--- OUTSIDE RECORDS SUMMARY | 2024-08-01 08:21 | XMS_ITS ---
Author Organization [facility] Address [address] [place] [address] Care Team Providers Care Satellite Television Installer Name Role Phone Genaro MORE, [place] Primary Care Provider Zachariah Gilliland [phone] Allergies Allergen (clinical drug ingredient) Drug/Non Drug [...] 08/03/2023 Encounters Encounter Location Date Provider Diagnosis [facility] [address] [place] [address] 08/03/2023 Zachariah Mitchell Abnormal MRI, liver R93.2 [...] OPAL BORJA MDOB:1945 ([age] yo F)Acc No.[id number]:08/03/2023 Progress Notes Patient:?OPAL BORJA Provider:?Zachariah Mitchell MD :1945???Age:78 Y???Sex:Female D ate:08/03/2023 Address:[address] [place], [place] [id number] Pcp:Jonny Lam MD Subjective: * Chief Complaints: [...] * Treatment: * Procedure Codes:?1036F TOBAC CO NON-OEAMD6067 BP SCR NOT PRFRM REC REASON NOS * Preventive Medicine:? ??Counseling:?Care goal follow-up plan:?Above Normal BMI Follow-up?Giving encouragement to exercise,?BMI management provided?Yes.? ??Urinary Incontinence:?Urinary Incontinence?Assessment:?Absent,?Plan of care documented:?No, reason not specified.? * Follow Up:?prn * * Sign off status: Completed true * Provider:?Zachariah Mitchell MD Date:? 024 Generated for Brenda curiel/Humberto/Vasiliyitting on:?08/01/2024 08:20 AM EDT History and Physical Notes * HPI [...]
--- OUTSIDE RECORDS SUMMARY | 2024-08-01 08:21 | XMS_ITS | Patient Health Record ---
Author Organization [facility] Address [address] [place] [address] Care Team Providers Care Lead Laying And Gluing Machine Operator Name Role Phone Jonny Lam MD Primary Care Provider Zachariah Gilliland Unavailable [phone] Allergies Allergen (clinical drug ingredient) Drug/Non Drug [...] Problem Status W/U Status Risk Notes Problem 063062795 Encounter for screening for malignant neoplasm of colon (Z12.11) Active confirmed Problem 676150586 Helicobacter pyl urban ab+ (R76.8) Active confirmed Problem Lesion of liver (202467755) Liver lesion (K76.9) Active confirmed Problem 340850023 Hx of adenomatou s colonic polyps (Z86.010) Active confirmed Problem Abnormal findings diagnostic imaging of liver and biliary tract (306582396) Abnormal MRI, liver (R93.2) Active confirmed Problem Esophageal reflux finding (134059727) Gastroesophageal reflux (K21.9) Active confirmed Problem 438220861 Abdominal discomfort, epigastric (R10.13) Active confirmed Problem Pancreatic duct disorder (312415956) 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 Problem Diverticulosis of colon (706313409) Diverticulosis of colon (K57.30) Active confirmed Problem 953957580 Gastroesophageal reflux disease, unspecified whether esophagitis present (K21.9) Active confirmed Vital Signs Blood pressure diastolic 00 mm Hg 08/03/2023 Height 62 in 08/03/2023 Blood pressure systolic 00 mm Hg 08/03/2023 Weight 159 lbs 08/03/2023 BMI 29.08 kg/m2 08/03/2023 Encounters Encounter Location Date Provider Diagnosis [facility] [address] [place] [address] 08/03/2023 Zachariah Mitchell Abnormal MRI, liver R93.2 [...] 02/22/2022 CREATININE 09/26/2021 CREATININE 02/22/2022 LIVER PROFILE 02/22/2022 LIVER PROFILE 09/26/2021 CEA 09/07/2021 ALPHA-FETOPROTEIN,TUMOR MARKER CA 19-9 09/26/2021 MRI ABD W&WO CONTRAST 09/26/2021 MRI ABD W&WO CONTRAST 02/22/2022 US ABD 07/29/2021 Amylase 09/26/2021 Lipase 09/26/2021 Alpha Fetoprotein 02/22/2022 Future Test Test Name Order Date COLONOSCOPY 02/12/2015 UPPER GI ENDOSCOPY 07/29/2021 COLONOSCOPY 07/29/2021 Insurance Providers Payer Name Payer Address Payer Phone Subscriber Number Group Number Insured Name Patient Relationship to Insured Coverage Start Date Coverage End Date [facility] [address] [place] [phone] [id number] OPAL BORJA Self - patient is the insured MEDICAID OF [facility] [address] [place] [phone] [id number] OPAL BORJA Self - patient is the insured Medical (General) History Medical History History ICD Code HTN Denies HI,DM,CVA,Lung disease,renal dise ase Glaucoma Neg colonoscopy in [...]
[2024-08-01 08:43] LABS: MANUAL DIFF FLAG NO
[2024-08-01 09:17] LABS: Basophils Absolute Auto 0.1 X10*3/uL (0.0-0.2); Basophils Percent Auto 0.8 % (0-2); Eosinophils Absolute Auto 0.2 X10*3/uL (0.0-0.4); Eosinophils Percent Auto 2.3 % (0-4); Hematocrit 37.6 % (37.0-47.0); Hemoglobin 12.2 g/dl (12.0-16.0); Imm Gran Abs Auto 0.01 X10*3/uL (0.00-0.03); Imm Gran Pct Auto 0.1 % (0.0-0.4); Lymphocytes Absolute Auto 1.9 X10*3/uL (1.2-4.9); Lymphocytes Percent Auto 25.2 % (20-40); Mean Corpuscular HGB Conc 32.4 g/dl (31.0-35.0); Mean Corpuscular Hemoglobin 30.3 pg (27.0-33.0); Mean Corpuscular Volume 93.3 fL (80.0-98.0); Mean Platelet Volume 13.8 fL (9.4-12.3); Monocytes Absolute Auto 0.6 X10*3/uL (0.1-1.2); Neutrophils Absolute Auto 4.8 x10*3/uL (2.0-8.3); Neutrophils Percent Auto 63.6 % (45-73); Platelet Count 127 X10*3/uL (160-400); Red Blood Count 4.03 X10*6/uL (4.20-5.50); Red Cell Distribution Width 12.5 % (11.0-16.0); White Blood Count 7.5 X10*3/uL (4.8-10.8)
[2024-08-01 09:22] LABS: Estimated Average Glucose 123 mg/dL; Hemoglobin A1C 133.4206 umol/L; Hemoglobin A1c % 5.9 % (<6.0)
[2024-08-01 09:32] LABS: Appearance Urine Clear; Color Urine Yellow; Glucose Urine UA Negative (Negative); Leukocyte Esterase Urine Moderate (2+) (Negative); Nitrite Urine Negative (Negative); UMIC TRIGGER UACC YES; Urine Blood Negative (Negative); Urine Ketones Trace mg/dL (Negative); Urine Protein Negative (Neg-Trace)
[2024-08-01 09:39] LABS: Bacteria Urine 1+ (None Seen); Hyaline Casts Urine 0-2 /LPF (0-2); RBC Urine 0-2 /HPF (0-2); UACC Culture Trigger YES; WBC Urine 21-50 /HPF (0-5)
[2024-08-01 09:55] LABS: Alanine Aminotransferase 28 U/L (0-31); Alkaline Phosphatase 78 U/L (39-117); Anion Gap 12 (12-20); Aspartate Amino Transferase 36 U/L (5-31); Bilirubin Total 0.8 mg/dL (0.0-1.0); Blood Urea Nitrogen 17 mg/dL (9-16); Calcium 9.6 mg/dL (8.4-10.2); Carbon Dioxide 24 mmol/L (22-29); Chloride 111 mmol/L (96-108); Cholesterol 114 mg/dL (<200); Estimated Glomerular Filt Rate > 60; Glucose Fasting 123 mg/dL (60-99); HDL Cholesterol 48 mg/dL (>40); LDL Cholesterol Calculated 50 mg/dL (<100); Potassium 4.6 mmol/L (3.3-5.1); Sodium 142 mmol/L (135-145); Total Protein 7.3 g/dL (6.5-8.0); Triglycerides 82 mg/dL (<150)
[2024-08-01 10:12] LABS: TSH reflex Free T4 1.52 uIU/mL (0.32-4.0)
[2024-08-01 10:52] LABS: Creatinine Urine 184.61 mg/dL; Microalbum/Creatinine Ratio Ur 7.5 ug/mg cr (<30)
== END 2024-08-01 08:14 | disposition home or self-care (01) ==
LOC: HO.LAB 08:13
PROVIDERS: PCP Internal Medicine; Visit Provider Internal Medicine
DX: D64.9 Anemia, unspecified (principal); E78.00 Pure hypercholesterolemia, unspecified; E11.9 Type 2 diabetes mellitus without complications; R30.0 Dysuria
CPT/HCPCS: 36415; 80053; 80061; 81001; 82043; 82570; 83036; 84443; 85025; 87086

== ENCOUNTER 2024-08-08 09:44 | Outpatient (AMB) | payer MEDICARE, MEDICAID, SELFPAY ==
[2024-08-08 09:48] VITALS: BP 120/56; PULSE 73; O2SAT 97; BMI 28.1
--- NOTE | 2024-08-08 09:48 | MHC.PC.OV ---
Vital Signs 08/08/24 09:48 Height 5 ft 3 in Weight 158 lb 8 oz BMI 28.1 BP 120/56 L Blood Pressure Location Lt brachial Position Sitting Pulse 73 Pulse Source Pulse Oximeter Pulse Oximetry (%) 97 Oxygen Delivery Method Room Air Intake Visit Reasons: 4mth f/u - see comments Stem Roller Operator Required: No Accompanied by: Self / Same As Patient Allergies Penicillins [PENICILLINS] Allergy (Mild, Verified 08/08/24 10:32) HIVES,RASH Medication List - Last Reconciled 08/08/24 by Jonny Lam MD amlodipine 2.5 mg PO DAILY 90 days atorvastatin 40 mg PO DAILY carvedilol 6.25 mg PO BID dorzolamide-timolol 22.3-6.8 mg/mL 1 drp ophthalmic (eye) BID latanoprost 0.005% 1 drp ophthalmic (eye) BEDTIME losartan 100 mg PO DAILY metformin ER 500 mg PO BID 90 days sitagliptin phosphate (Januvia) 100 mg PO DAILY 90 days timolol maleate 0.5% 1 drp ophthalmic (eye) BID Tobacco use date assessed: 08/08/24 Fall risk assessment: No Falls in past year Last assessed Fall Risk: 08/08/24 Dental Screening Dental Screen Date: 08/08/24 Did you have a dental visit in the last 12 months?: Yes Did you have a dental problem in the last 6 months where you did not have access to dental care?: No Was dental information given to patient?: Patient has dentist HPI 4mt f/u - see comments HPI Details Patient comes in today for her follow up visit States that she feels okay She denies any headaches or dizziness Denies any chest pains, no SOB No nausea/vomiting, no abdominal pain No change in bowel habits noted She had her follow up labs done last week - to discuss her results ON LICENSE OF [facility] Medical History Cataract Low back pain Post-menopausal Overweight (BMI 25.0-29.9) Anxiety Glaucoma of both eyes Vitamin D deficiency Thrombocytopenia Gastritis Type 2 diabetes mellitus without complication, with no history of insulin use Pure hypercholesterolemia Benign essential hypertension NSTEMI (non-ST elevated myocardial infarction) Surgical History History of cataract surgery Hx of section S/P cardiac catheterization (~2019) History of colonoscopy Family History Father CVD (cardiovascular disease) Mother CVD (cardiovascular disease) Brother CVD (cardiovascular disease) Social History Housing: House Alcohol intake: never Patient Tobacco Use Status: Never used Tobacco e-Cigarette/Vaping Use: Never Used Second Hand Smoke Exposure: Yes service: No Current occupational status: disabled Cognitive needs: No Hearing needs: Yes Vision needs: Yes Questionnaire PHQ-9 Over the last 2 weeks, how often have you been bothered by any of the following problems? 1. Little interest or pleasure in doing things: not at all 2. Feeling down, depressed, or hopeless: not at all 3. Trouble falling or staying asleep, or sleeping too much: not at all 4. Feeling tired or having little energy: not at all 5. Poor appetite or overeating: not at all 6. Feeling bad about yourself - or that you are a failure or have let yourself or your family down: not at all 7. Trouble concentrating on things, such as reading the newspaper or watching television: not at all 8. Moving or speaking so slowly that other people could have noticed. Or the opposite - being so fidgety or restless that you have been moving around a lot more than usual: not at all 9. Thoughts that you would be better off or of hurting yourself in some way: not at all Total score: 0 Depression Screening Interpretation: Negative Depression Screening Done: Yes 22176 - PHQ-9 Billing: Yes Source: Developed by Drs. Zachariah Holman, Milla Gonzales, Herman Heller and colleagues, with an educational latia from [employer]. Thrive Questionnaire Date Thrive assessed: 08/08/24 I am a: Patient What is your living situation today?: I have a steady place to live Within the past 12 months, did the food you bought not last and you didn't have the money to get more?: Never true Within the past 12 months, did you worry whether your food would run out before you got money to buy more?: Never true Do you have trouble paying for medicines?: No Do you have trouble getting transportation to medical appointments?: No Do you have trouble paying your heating and electricity bill?: No Do you have trouble taking care of your child, family member or friend?: No Do you have trouble with day-to-day activities such as bathing, preparing meals, shopping, managing finances, etc.?: No Are you currently unemployed and looking for a job?: No Are you interested in more education?: No Please select the resources that you would like help with: None Currently or been in a relationship where the following occur: No concerns reported THRIVE Score: 0 AUDIT C Alcohol Use Questionnaire (AUDIT-C) 1. How often do you have a drink containing alcohol?: Monthly or less 2. How many drinks containing alcohol do you have on a typical day when you are drinking?: 1 or 2 3. How often do you have six or more drinks on one occasion?: Never Total Score: 1 Score Reviewed/Action Taken: Yes MCKAY-7 AMB Questionnaire MCKAY-7 Date MCKAY - 7 assessed: 08/08/24 Feeling nervous, anxious, or on edge: 0 = Not at all Not being able to stop or control worryin = Not at all Worrying too much about different things: 0 = Not at all Trouble relaxin = Not at all Being so restless that it is hard to sit still: 0 = Not at all Becoming easily annoyed or irritable: 0 = Not at all Feeling afraid as if something awful might happen: 0 = Not at all Total MCKAY-7 score (0-4 normal; 5-9 mild; 10-14 moderate; 15-21 severe): 0 Source: Developed by Drs. Zachariah Holman, Milla Gonzales, Herman Heller and colleagues, with an educational latia from [employer]. Review of Systems Const Denies chills, Denies fatigue, Denies fever(s) and Denies headache(s) ENT Denies dysphagia, Denies dizziness, Denies otalgia, Denies headache(s), Denies neck pain, Denies odynophagia and Denies sore throat Card Denies chest pain, Denies irregular heart rhythm, Denies palpitations and Denies dyspnea Resp Denies chest congestion, Denies cough and Denies dyspnea GI Denies abdominal pain, Denies constipation, Denies dysphagia, Denies heartburn, Denies diarrhea, Denies nausea, Denies odynophagia and Denies vomiting Denies urinary frequency, Denies dysuria and Denies urinary urgency Musc Denies back pain, Denies arthralgias and Denies neck pain Skin/Breast Denies rash Neuro Denies dizziness, Denies headache(s) and Denies paresthesias Psych Denies anxiety and Denies depression Endo Denies fatigue and Denies palpitations Mirza/Lymph Denies easy bruising Physical exam (Primary Care) Vital Signs: Last Vital Signs Pulse 73 08/08/24 09:48 BP 120/56 L 08/08/24 09:48 Pulse Ox 97 08/08/24 09:48 Oxygen Delivery Method Room Air 08/08/24 09:48 BMI result Body Mass Index 28.1 Tobacco/Smoking Status: Tobacco use Status Tobacco use date assessed 08/08/24 08/08/24 09:54 Patient Tobacco Use Status Never used Tobacco 08/08/24 09:54 e-Cigarette/Vaping Use Never Used 08/08/24 09:54 PHQ-9: PHQ-9 Score PHQ-9: Total score 0 08/08/24 09:54 Depression Screening Interpretation: Negative Thrive Assessment: Date of Thrive Assessment Date Thrive assessed 08/08/24 08/08/24 09:54 Currently or been in a relationship where the following occur: No concerns reported Const General: no acute distress and alert HENMT Ears: TM's normal bilaterally and EAC's normal Throat: Yes posterior oropharynx normal and Yes tonsils normal (no TP congestion) Neck Neck: Yes supple and No lymphadenopathy Thyroid: Thyroid normal Resp Auscultation: clear to auscultation bilaterally, no rales and no wheezes Cardio Rate: regular rate Rhythm: regular rhythm Heart sounds: no murmurs GI Palpation (GI): Soft to palpation and nontender Auscultation: normal bowel sounds General: Yes no CVA tenderness Back/Spine/Pelvis Back: no CVA tenderness Thoracic/Lumbar Spine: No lumbar spinal tenderness Skin Rashes: no rashes Extrem General: Yes no clubbing, cyanosis or edema Results Reviewed Results Reviewed: Laboratory Tests 08/01/24 08:41 WBC 7.5 Hgb 12.2 Hct 37.6 Plt Count 127 L Sodium 142 Potassium 4.6 Creatinine 0.80 Estimated GFR > 60 Fasting Glucose 123 H Hemoglobin A1c % 5.9 Calcium 9.6 AST 36 H ALT 28 Triglycerides 82 Cholesterol 114 LDL Cholesterol, Calc 50 HDL Cholesterol 48 TSH 1.52 Ur Specific [place] 1.020 Urine Protein Negative Urine Glucose (UA) Negative Urine Blood Negative Urine Nitrite Negative Ur Leukocyte Esterase Moderate (2+) H Microalb/Creat Ratio 7.5 Coding Level of Care Code Est Pt Level 4 (55433) Complex EM visit Add On G2211 Diagnoses NSTEMI (non-ST elevated myocardial infarction) I21.4 Pure hypercholesterolemia E78.00 Benign essential hypertension I10 Type 2 diabetes mellitus without complication, with no history of insulin use E11.9 Gastritis without bleeding, unspecified chronicity, unspecified gastritis type K29.70 Gastritis type: unspecified gastritis Chronicity: unspecified Gastritis bleeding: without bleeding Thrombocytopenia D69.6 Vitamin D deficiency E55.9 Glaucoma of both eyes, unspecified glaucoma type H40.9 Glaucoma type: unspecified Insomnia, unspecified type G47.00 Insomnia type: unspecified Anxiety F41.9 Overweight (BMI 25.0-29.9) E66.3 Additional Codes PHQ-9 - 96130 - PHQ-9 Billing: Yes ([id number]) Assessment & Plan Assessment & Plan (1) NSTEMI (non-ST elevated myocardial infarction): Code(s): I21.4 - Non-ST elevation (NSTEMI) myocardial infarction Category: Medical Plan: Patient had previous non-ST elevation MN in the setting of elevated blood pressures with no significant coronary artery disease Cardiac catheterization done at [facility] in 2019 showed NO significant coronary artery disease Reinforced primary risk factor modification according to ATP III guidelines Continue low dose Aspirin 81 mg QD She was seen by cardiology recently and was advised to continue with current regimen Follow up with cardiology as scheduled in 1 year (2) Pure hypercholesterolemia: Code(s): E78.00 - Pure hypercholesterolemia, unspecified Category: Medical Plan: Results of her labs done last week reviewed and discussed with patient Reinforced low cholesterol diet Continue Atorvastatin 40 mg QD Will recheck her labs and fasting lipids in 4 months for follow up (3) Benign essential hypertension: Code(s): I10 - Essential (primary) hypertension Category: Medical Plan: Reinforced low sodium diet - goal is systolic BP of at least 130 to 140 mm or less Continue Losartan 100 mg QD, Amlodipine 2.5 mg QD and Carvedilol 6.25 mg BID (4) Type 2 diabetes mellitus without complication, with no history of insulin use: Code(s): E11.9 - Type 2 diabetes mellitus without complications Category: Medical Plan: Her HgbA1c is mostly unchanged from previous at 5.9% on her recent labs done last week (she was previously also at 5.9% a few months ago) - goal is at least < 7.0% Reinforced diabetic diet Continue Metformin ER 500 mg BID and Januvia 100 mg QD Follow up with farm machinery mechanic as scheduled for diabetic teaching and dietary counseling (5) Gastritis: Code(s): K29.70 - Gastritis, unspecified, without bleeding Category: Medical Qualifiers: Gastritis type: unspecified gastritis Chronicity: unspecified Gastritis bleeding: without bleeding Qualified Code(s): K29.70 - Gastritis, unspecified, without bleeding Plan: S/P repeat EGD and colonoscopy with Dr. Mitchell on 09/03/21 Dietary restrictions reinforced Continue Omeprazole 20 mg QD Follow up with GI (Dr. Mitchell) as scheduled (6) Thrombocytopenia: Code(s): D69.6 - Thrombocytopenia, unspecified Category: Medical Plan: Stable; patient has had no acute issues with bleeding lately Will continue to monitor her platelet count regularly (7) Vitamin D deficiency: Code(s): E55.9 - Vitamin D deficiency, unspecified Category: Medical Plan: Continue Vitamin D3 2000 units QD (8) Glaucoma of both eyes: Code(s): H40.9 - Unspecified glaucoma Category: Medical Qualifiers: Glaucoma type: unspecified Qualified Code(s): H40.9 - Unspecified glaucoma Plan: Continue Dorzolamide HCl-Timolol eye drops as instructed Follow up with ophthalmology as scheduled (9) Insomnia: Code(s): G47.00 - Insomnia, unspecified Category: Medical Qualifiers: Insomnia type: unspecified Qualified Code(s): G47.00 - Insomnia, unspecified Plan: Patient stated in the past that she has trouble sleeping at night at times, mostly from thinking too much Her daughter states that she still has trouble sleeping well at night at times Continue Melatonin 3 mg Q HS PRN (10) Anxiety: Code(s): F41.9 - Anxiety disorder, unspecified Category: Medical Plan: Continue Hydroxyzine 25 mg TID PRN (11) Overweight (BMI 25.0-29.9): Code(s): E66.3 - Overweight Category: Medical Plan: Reinforced diet/exercise as tolerated/lose weight Plan Follow up in 4 months Orders: Orders Complete Blood Count Auto Diff 4 Months D64.9 - Anemia, unspecified Lipid Panel 4 Months E78.00 - Pure hypercholesterolemia, unspecified Comprehensive [place]. Panel Fast 4 Months E78.00 - Pure hypercholesterolemia, unspecified Vitamin D 25-OH Total 4 Months E55.9 - Vitamin D deficiency, unspecified Hemoglobin A1c 4 Months E11.9 - Type 2 diabetes mellitus without complications TSH reflex Free T4 4 Months E78.00 - Pure hypercholesterolemia, unspecified UA CC w/rflx Micro + Cult 4 Months R30.0 - Dysuria
--- OUTSIDE RECORDS SUMMARY | 2024-08-08 11:14 | XMS_ITS | Patient Health Record ---
Author Organization [facility] Address [address] [place] [address] Care Team Providers Care Buttonhole Machine Operator Name Role Phone Jonny Lam MD Primary Care Provider Zachariah Gilliland Unavailable [phone] Allergies Allergen (clinical drug ingredient) Drug/Non Drug [...] Problem Status W/U Status Risk Notes Problem 156192393 Encounter for screening for malignant neoplasm of colon (Z12.11) Active confirmed Problem 128108102 Helicobacter pyl urban ab+ (R76.8) Active confirmed Problem Lesion of liver (371582082) Liver lesion (K76.9) Active confirmed Problem 226649712 Hx of adenomatou s colonic polyps (Z86.010) Active confirmed Problem Abnormal findings diagnostic imaging of liver and biliary tract (922991647) Abnormal MRI, liver (R93.2) Active confirmed Problem Esophageal reflux finding (855671624) Gastroesophageal reflux (K21.9) Active confirmed Problem 413485732 Abdominal discomfort, epigastric (R10.13) Active confirmed Problem Pancreatic duct disorder (617537861) 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 Problem Diverticulosis of colon (287534177) Diverticulosis of colon (K57.30) Active confirmed Problem 085689561 Gastroesophageal reflux disease, unspecified whether esophagitis present (K21.9) Active confirmed Plan Of Treatment Pending Test Test Name Order Date BUN 09/26/2021 BUN 02/22/2022 CREATININE 02/22/2022 CREATININE 09/26/2021 LIVER PROFILE 02/22/2022 LIVER PROFILE 09/26/2021 CEA [...] Insured Coverage Start Date Coverage End Date [facility] [address] [place] [address] [id number] ORIN BORJA Self - patient is the insured MEDICAID OF [facility] [address] [place] [address] [id number] ORIN BORJA Self - patient is the insured Medical (General) History Medical History History ICD Code HTN Denies PR,DM,CVA,Lung disease,renal dise ase Glaucoma Neg colonoscopy in [...]
--- OUTSIDE RECORDS SUMMARY | 2024-08-08 11:15 | XMS_ITS ---
Author Organization [facility] Address [address] [place] [address] Care Team Providers Care Cut Off Saw Tender Metal Name Role Phone Genaro MORE, River Primary Care Provider Zachariah Gilliland [phone] Allergies Allergen (clinical drug ingredient) Drug/Non Drug [...] 08/03/2023 Encounters Encounter Location Date Provider Diagnosis [facility] [address] [place] [address] 08/03/2023 Zachariah Mitchell Abnormal MRI, liver R93.2 [...] OPAL BORJA MDOB:1945 ([age] yo F)Acc No.[id number]:08/03/2023 Progress Notes Patient:?OPAL BORJA Provider:?Zachariah Mitchell MD :1945???Age:78 Y???Sex:Female D ate:08/03/2023 Address:[address] [place], [place] [id number] Pcp:Jonny Lam MD Subjective: * Chief Complaints: [...] * Treatment: * Procedure Codes:?1036F TOBAC CO NON-YADFD1243 BP SCR NOT PRFRM REC REASON NOS * Preventive Medicine:? ??Counseling:?Care goal follow-up plan:?Above Normal BMI Follow-up?Giving encouragement to exercise,?BMI management provided?Yes.? ??Urinary Incontinence:?Urinary Incontinence?Assessment:?Absent,?Plan of care documented:?No, reason not specified.? * Follow Up:?prn * * Sign off status: Completed true * Provider:?Zachariah Mitchell MD Date:? 024 Generated for Brenda curiel/Humbetro/Vasiliyitting on:?08/08/2024 11:14 AM EDT History and Physical Notes * [...]
== END 2024-08-08 10:43 | disposition home or self-care (01) ==
LOC: HO.HMCH 09:45
PROVIDERS: PCP Internal Medicine; Visit Provider Internal Medicine
DX: E11.9 Type 2 diabetes mellitus without complications (principal); I25.2 Old myocardial infarction; D69.6 Thrombocytopenia, unspecified; E78.00 Pure hypercholesterolemia, unspecified; I10 Essential (primary) hypertension; K29.70 Gastritis, unspecified, without bleeding; E55.9 Vitamin D deficiency, unspecified; H40.9 Unspecified glaucoma; G47.00 Insomnia, unspecified; F41.9 Anxiety disorder, unspecified; E66.3 Overweight

== ENCOUNTER → 2024-08-08 09:44 | Outpatient (BNVA) | payer MEDICARE, MEDICAID, SELFPAY | PROVIDERS: PCP Internal Medicine; Visit Provider Internal Medicine | DX: I21.4 Non-ST elevation (NSTEMI) myocardial infarction (principal); E78.00 Pure hypercholesterolemia, unspecified; I10 Essential (primary) hypertension; E11.9 Type 2 diabetes mellitus without complications; K29.70 Gastritis, unspecified, without bleeding; D69.6 Thrombocytopenia, unspecified; E55.9 Vitamin D deficiency, unspecified; H40.9 Unspecified glaucoma; G47.00 Insomnia, unspecified; F41.9 Anxiety disorder, unspecified; E66.3 Overweight; Z68.28 Body mass index [BMI] 28.0-28.9, adult; Z79.82 Long term (current) use of aspirin; Z79.84 Long term (current) use of oral hypoglycemic drugs; Z79.899 Other long term (current) drug therapy | CPT/HCPCS: 96127; 99212 ==

== ENCOUNTER 2024-12-12 07:46 | Outpatient (REF) | payer MEDICARE, MEDICAID, SELFPAY ==
--- OUTSIDE RECORDS SUMMARY | 2024-12-12 07:52 | XMS_ITS | Patient Health Record ---
Author Organization [facility] Address [address] [place] [address] Care Team Providers Care Hairspring Assembler Name Role Phone Jonny Lam MD Primary Care Provider Zachariah Gilliland Unavailable [phone] Allergies Allergen (clinical drug ingredient) Drug/Non Drug [...] Problem Status W/U Status Risk Notes Problem 100647573 Encounter for screening for malignant neoplasm of colon (Z12.11) Active confirmed Problem 678165170 Helicobacter pyl urban ab+ (R76.8) Active confirmed Problem Lesion of liver (726856692) Liver lesion (K76.9) Active confirmed Problem 858033832 Hx of adenomatou s colonic polyps (Z86.010) Active confirmed Problem Abnormal findings diagnostic imaging of liver and biliary tract (860759272) Abnormal MRI, liver (R93.2) Active confirmed Problem Esophageal reflux finding (642769589) Gastroesophageal reflux (K21.9) Active confirmed Problem 847425672 Abdominal discomfort, epigastric (R10.13) Active confirmed Problem Pancreatic duct disorder (147637190) 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 Problem Diverticulosis of colon (974161999) Diverticulosis of colon (K57.30) Active confirmed Problem 710842559 Gastroesophageal reflux disease, unspecified whether esophagitis present [...] Insured Coverage Start Date Coverage End Date [facility] [address] [place] [address] [id number] ORIN BORJA Self - patient is the insured MEDICAID OF [facility] [address] [place] [phone] [id number] ORIN BORJA Self - patient is the insured Medical (General) History Medical History History ICD Code HTN Denies [place],DM,CVA,Lung disease,renal dise ase Glaucoma Neg colonoscopy in [...]
[2024-12-12 08:48] LABS: Appearance Urine Clear; Glucose Urine UA Negative (Negative); PH 5.0 (5.0-9.0); Specific Gravity - Urine 1.020 (1.005-1.025); UMIC TRIGGER UACC YES
[2024-12-12 08:48] LABS: Hematocrit 37.9 % (37.0-47.0); Hemoglobin 12.0 g/dl (12.0-16.0); Imm Gran Abs Auto 0.03 X10*3/uL (0.00-0.03); Imm Gran Pct Auto 0.5 % (0.0-0.4); Lymphocytes Absolute Auto 1.8 X10*3/uL (1.2-4.9); Mean Corpuscular HGB Conc 31.7 g/dl (31.0-35.0); Mean Corpuscular Hemoglobin 29.9 pg (27.0-33.0); Mean Corpuscular Volume 94.5 fL (80.0-98.0); NRBC Abs Auto 0.000 X10*3/uL (0.0-0.012); NRBC Pct Auto 0.0 /100WBC (0.0-0.2); Red Blood Count 4.01 X10*6/uL (4.20-5.50)
[2024-12-12 08:56] LABS: UACC Culture Trigger YES
[2024-12-12 08:57] LABS: Platelet Count 123 X10*3/uL (160-400); White Blood Count 6.6 X10*3/uL (4.8-10.8)
[2024-12-12 09:05] LABS: Hemoglobin A1C 138.3238 umol/L; Total Hemoglobin (HGBA1C) 3170.7933 umol/L
[2024-12-12 09:21] LABS: Alanine Aminotransferase 27 U/L (0-31); Albumin Level 4.4 g/dL (3.5-5.0); Alkaline Phosphatase 75 U/L (39-117); Anion Gap 12 (12-20); Aspartate Amino Transferase 33 U/L (5-31); Blood Urea Nitrogen 19 mg/dL (9-16); Calcium 9.4 mg/dL (8.4-10.2); Carbon Dioxide 24 mmol/L (22-29); Chloride 109 mmol/L (96-108); Cholesterol 128 mg/dL (<200); Estimated Glomerular Filt Rate 60; HDL Cholesterol 49 mg/dL (>40); Potassium 4.5 mmol/L (3.3-5.1); Sodium 140 mmol/L (135-145); Total Protein 7.3 g/dL (6.5-8.0); Triglycerides 78 mg/dL (<150)
== END 2024-12-12 07:47 | disposition home or self-care (01) ==
LOC: HO.LAB 07:46
PROVIDERS: PCP Internal Medicine; Visit Provider Internal Medicine
DX: E11.9 Type 2 diabetes mellitus without complications (principal); E78.00 Pure hypercholesterolemia, unspecified; E55.9 Vitamin D deficiency, unspecified; D64.9 Anemia, unspecified
CPT/HCPCS: 36415; 80053; 80061; 81001; 82306; 83036; 84443; 85025; 87086

== ENCOUNTER 2024-12-20 09:12 | Outpatient (AMB) | payer MEDICARE, MEDICAID, SELFPAY ==
[2024-12-20 09:23] VITALS: BP 130/62; PULSE 77; TEMP 36.2; O2SAT 95; BMI 28.7
--- NOTE | 2024-12-20 09:23 | MHC.PC.OV ---
Vital Signs 12/20/24 09:23 Height 5 ft 3 in Weight 162 lb 4 oz BMI 28.7 BP 130/62 Blood Pressure Location Lt brachial Position Sitting Pulse 77 Pulse Source Pulse Oximeter Temp 97.1 F Temp Source Temporal Artery Scan Pulse Oximetry (%) 95 Oxygen Delivery Method Room Air Intake Visit Reasons: 4mt f/u Accompanied by: Spouse Allergies Penicillins (PENICILLINS) Allergy (Mild, Verified 12/20/24 09:46) HIVES,RASH Medication List - Last Reconciled 12/20/24 by Jonny Lam MD amlodipine 2.5 mg PO DAILY atorvastatin 40 mg PO DAILY carvedilol 6.25 mg PO BID dorzolamide-timolol 22.3-6.8 mg/mL 1 drp ophthalmic (eye) BID latanoprost 0.005% 1 drp ophthalmic (eye) BEDTIME losartan 100 mg PO DAILY metformin ER 500 mg PO BID 90 days sitagliptin phosphate (Januvia) 100 mg PO DAILY 90 days timolol maleate 0.5% 1 drp ophthalmic (eye) BID Tobacco use date assessed: 12/20/24 Fall risk assessment: No Falls in past year Last assessed Fall Risk: 12/20/24 Dental Screening Dental Screen Date: 12/20/24 Did you have a dental visit in the last 12 months?: Yes Did you have a dental problem in the last 6 months where you did not have access to dental care?: No Was dental information given to patient?: Patient has dentist HPI 4mt f/u HPI Details Patient comes in today for her follow up visit States that she feels okay She denies any headaches or dizziness Denies any chest pains, no SOB No nausea/vomiting, no abdominal pain No change in bowel habits noted She had her follow up labs done last week - to discuss her results [facility] Medical History Cataract Low back pain Post-menopausal Overweight (BMI 25.0-29.9) Anxiety Glaucoma of both eyes Vitamin D deficiency Thrombocytopenia Gastritis Type 2 diabetes mellitus without complication, with no history of insulin use Pure hypercholesterolemia Benign essential hypertension NSTEMI (non-ST elevated myocardial infarction) Surgical History History of cataract surgery Hx of section S/P cardiac catheterization (~2019) History of colonoscopy Family History Father CVD (cardiovascular disease) Mother CVD (cardiovascular disease) Brother CVD (cardiovascular disease) Social History Housing: House Alcohol intake: never Patient Tobacco Use Status: Never used Tobacco e-Cigarette/Vaping Use: Never Used Second Hand Smoke Exposure: Yes service: No Current occupational status: disabled Cognitive needs: No Hearing needs: Yes Vision needs: Yes Questionnaire PHQ-9 Over the last 2 weeks, how often have you been bothered by any of the following problems? 1. Little interest or pleasure in doing things: not at all 2. Feeling down, depressed, or hopeless: not at all 3. Trouble falling or staying asleep, or sleeping too much: not at all 4. Feeling tired or having little energy: not at all 5. Poor appetite or overeating: not at all 6. Feeling bad about yourself - or that you are a failure or have let yourself or your family down: not at all 7. Trouble concentrating on things, such as reading the newspaper or watching television: not at all 8. Moving or speaking so slowly that other people could have noticed. Or the opposite - being so fidgety or restless that you have been moving around a lot more than usual: not at all 9. Thoughts that you would be better off or of hurting yourself in some way: not at all Total score: 0 Depression Screening Interpretation: Negative Depression Screening Done: Yes 47316 - PHQ-9 Billing: Yes Source: Developed by Drs. Zachariah Holman, Milla Gonzales, Herman Heller and colleagues, with an educational latia from [employer]. Thrive Questionnaire Date Thrive assessed: 12/20/24 I am a: Patient What is your living situation today?: I have a steady place to live Within the past 12 months, did the food you bought not last and you didn't have the money to get more?: Never true Within the past 12 months, did you worry whether your food would run out before you got money to buy more?: Never true Do you have trouble paying for medicines?: No Do you have trouble getting transportation to medical appointments?: No Do you have trouble paying your heating and electricity bill?: No Do you have trouble taking care of your child, family member or friend?: No Do you have trouble with day-to-day activities such as bathing, preparing meals, shopping, managing finances, etc.?: Yes Are you currently unemployed and looking for a job?: I choose not to answer this question Are you interested in more education?: No Please select the resources that you would like help with: None Currently or been in a relationship where the following occur: No concerns reported THRIVE Score: 0 AUDIT C Alcohol Use Questionnaire (AUDIT-C) 1. How often do you have a drink containing alcohol?: Never 3. How often do you have six or more drinks on one occasion?: Never Total Score: 0 Score Reviewed/Action Taken: Yes MCKAY-7 AMB Questionnaire MCKAY-7 Date MCKAY - 7 assessed: 08/08/24 Feeling nervous, anxious, or on edge: 0 = Not at all Not being able to stop or control worryin = Several days Worrying too much about different things: 1 = Several days Trouble relaxin = Not at all Being so restless that it is hard to sit still: 0 = Not at all Becoming easily annoyed or irritable: 0 = Not at all Feeling afraid as if something awful might happen: 0 = Not at all Total MCKAY-7 score (0-4 normal; 5-9 mild; 10-14 moderate; 15-21 severe): 2 Source: Developed by Drs. Zachariah Holman, Milla Gonzales, Herman Heller and colleagues, with an educational latia from [employer]. Review of Systems Const Denies chills, Denies fatigue, Denies fever(s) and Denies headache(s) ENT Denies dysphagia, Denies dizziness, Denies otalgia, Denies headache(s), Denies neck pain, Denies odynophagia and Denies sore throat Card Denies chest pain, Denies irregular heart rhythm, Denies palpitations and Denies dyspnea Resp Denies chest congestion, Denies cough and Denies dyspnea GI Denies abdominal pain, Denies constipation, Denies dysphagia, Denies heartburn, Denies diarrhea, Denies nausea, Denies odynophagia and Denies vomiting Denies difficulty voiding, Denies nocturia, Denies dysuria and Denies urinary urgency Musc Denies back pain, Denies arthralgias and Denies neck pain Skin/Breast Denies rash Neuro Denies dizziness, Denies headache(s) and Denies paresthesias Psych Denies anxiety and Denies depression Endo Denies fatigue and Denies palpitations Mirza/Lymph Denies easy bruising Physical exam (Primary Care) Vital Signs: Last Vital Signs Temp 97.1 F 12/20/24 09:23 Pulse 77 12/20/24 09:23 BP 130/62 12/20/24 09:23 Pulse Ox 95 12/20/24 09:23 Oxygen Delivery Method Room Air 12/20/24 09:23 BMI result Body Mass Index 28.7 Tobacco/Smoking Status: Tobacco use Status Tobacco use date assessed 12/20/24 12/20/24 09:27 Patient Tobacco Use Status Never used Tobacco 12/20/24 09:27 e-Cigarette/Vaping Use Never Used 12/20/24 09:27 PHQ-9: PHQ-9 Score PHQ-9: Total score 0 12/20/24 09:27 Depression Screening Interpretation: Negative Thrive Assessment: Date of Thrive Assessment Date Thrive assessed 12/18/24 12/20/24 09:27 Currently or been in a relationship where the following occur: No concerns reported Const General: no acute distress and alert HENMT Ears: TM's normal bilaterally and EAC's normal Throat: Yes posterior oropharynx normal and Yes tonsils normal (no TP congestion) Neck Neck: Yes supple and No lymphadenopathy Thyroid: Thyroid normal Resp Auscultation: clear to auscultation bilaterally, no rales and no wheezes Cardio Rate: regular rate Rhythm: regular rhythm Heart sounds: no murmurs GI Palpation (GI): Soft to palpation and nontender Auscultation: normal bowel sounds General: Yes no CVA tenderness Back/Spine/Pelvis Back: no CVA tenderness Thoracic/Lumbar Spine: No lumbar spinal tenderness Skin Rashes: no rashes Extrem General: Yes no clubbing, cyanosis or edema Results Reviewed Results Reviewed: Laboratory Tests 08/01/24 12/12/24 12/12/24 08:41 08:08 08:12 WBC 6.6 Hgb 12.0 Hct 37.9 Plt Count 123 L Sodium 140 Potassium 4.5 Creatinine 0.91 Estimated GFR 60 Fasting Glucose 149 H Hemoglobin A1c % 6.1 H Calcium 9.4 AST 33 H ALT 27 Triglycerides 78 Cholesterol 128 LDL Cholesterol, Calc 64 HDL Cholesterol 49 25-OH Vitamin D Total 45.3 TSH 1.36 Ur Specific [place] 1.020 Urine Protein Negative Urine Glucose (UA) Negative Urine Blood Negative Urine Nitrite Negative Ur Leukocyte Esterase Small (1+) H Microalb/Creat Ratio 7.5 Coding Level of Care Code Est Pt Level 4 (96288) Diagnoses NSTEMI (non-ST elevated myocardial infarction) I21.4 Pure hypercholesterolemia E78.00 Benign essential hypertension I10 Type 2 diabetes mellitus without complication, with no history of insulin use E11.9 Gastritis without bleeding, unspecified chronicity, unspecified gastritis type K29.70 Gastritis type: unspecified gastritis Chronicity: unspecified Gastritis bleeding: without bleeding Thrombocytopenia D69.6 Vitamin D deficiency E55.9 Glaucoma of both eyes, unspecified glaucoma type H40.9 Glaucoma type: unspecified Insomnia, unspecified type G47.00 Insomnia type: unspecified Anxiety F41.9 Overweight (BMI 25.0-29.9) E66.3 Additional Codes PHQ-9 - 28841 - PHQ-9 Billing: Yes ([id number]) Assessment & Plan Assessment & Plan (1) NSTEMI (non-ST elevated myocardial infarction): Comment: 2019 Code(s): I21.4 - Non-ST elevation (NSTEMI) myocardial infarction Category: Medical Plan: Patient previously had a non-ST elevation IN in the setting of elevated blood pressures with no significant coronary artery disease Cardiac catheterization done at [facility] in 2019 showed NO significant coronary artery disease Reinforced primary risk factor modification according to ATP III guidelines Continue low dose Aspirin 81 mg QD Cardiology have advised her to continue with current regimen - to follow up with cardiology yearly as scheduled (2) Pure hypercholesterolemia: Code(s): E78.00 - Pure hypercholesterolemia, unspecified Category: Medical Plan: Results of her labs done last week reviewed and discussed with patient - her cholesterol levels have increased slightly from previous, likely because of her recent vacation in [place] Reinforced low cholesterol diet Continue Atorvastatin 40 mg QD Will recheck her labs and fasting lipids in 4 months for follow up (3) Benign essential hypertension: Code(s): I10 - Essential (primary) hypertension Category: Medical Plan: Reinforced low sodium diet - goal is systolic BP of at least 130 to 140 mm or less Continue Losartan 100 mg QD, Amlodipine 2.5 mg QD and Carvedilol 6.25 mg BID (4) Type 2 diabetes mellitus without complication, with no history of insulin use: Code(s): E11.9 - Type 2 diabetes mellitus without complications Category: Medical Plan: Her HgbA1c has increased slightly to 6.1% on her recent labs; it was previously at 5.9% a few months ago - goal is at least < 7.0% Reinforced diabetic diet Continue Metformin ER 500 mg BID and Januvia 100 mg QD Follow up with [facility] as scheduled for diabetic teaching and dietary counseling (5) Gastritis: Code(s): K29.70 - Gastritis, unspecified, without bleeding Category: Medical Qualifiers: Gastritis type: unspecified gastritis Chronicity: unspecified Gastritis bleeding: without bleeding Qualified Code(s): K29.70 - Gastritis, unspecified, without bleeding Plan: S/P repeat EGD and colonoscopy with Dr. Mitchell on 09/03/21 Dietary restrictions reinforced Continue Omeprazole 20 mg QD Follow up with GI (Dr. Mitchell) as scheduled (6) Thrombocytopenia: Code(s): D69.6 - Thrombocytopenia, unspecified Category: Medical Plan: Stable; patient has had no acute issues with bleeding lately Will continue to monitor her platelet count regularly (7) Vitamin D deficiency: Code(s): E55.9 - Vitamin D deficiency, unspecified Category: Medical Plan: Continue Vitamin D3 2000 units QD (8) Glaucoma of both eyes: Code(s): H40.9 - Unspecified glaucoma Category: Medical Qualifiers: Glaucoma type: unspecified Qualified Code(s): H40.9 - Unspecified glaucoma Plan: Continue Dorzolamide HCl-Timolol eye drops as instructed Follow up with ophthalmology as scheduled (9) Insomnia: Code(s): G47.00 - Insomnia, unspecified Category: Medical Qualifiers: Insomnia type: unspecified Qualified Code(s): G47.00 - Insomnia, unspecified Plan: Patient stated in the past that she has trouble sleeping at night at times, mostly from thinking too much States that she still has trouble sleeping well at night at times - some days good, some days not so good Continue Melatonin 3 mg Q HS PRN (10) Anxiety: Code(s): F41.9 - Anxiety disorder, unspecified Category: Medical Plan: Continue Hydroxyzine 25 mg TID PRN (11) Overweight (BMI 25.0-29.9): Code(s): E66.3 - Overweight Category: Medical Plan: Reinforced diet/exercise as tolerated/lose weight Plan Follow up in 4 months Orders: Orders Complete Blood Count Auto Diff 4 Months D64.9 - Anemia, unspecified Comprehensive [place]. Panel Fast 4 Months E78.00 - Pure hypercholesterolemia, unspecified UA CC w/rflx Micro + Cult 4 Months R30.0 - Dysuria Lipid Panel 4 Months E78.00 - Pure hypercholesterolemia, unspecified Microalbumin, Random (w Creat) 4 Months E11.9 - Type 2 diabetes mellitus without complications Hemoglobin A1c 4 Months E11.9 - Type 2 diabetes mellitus without complications TSH reflex Free T4 4 Months E78.00 - Pure hypercholesterolemia, unspecified Vitamin D 25-OH Total 4 Months E55.9 - Vitamin D deficiency, unspecified
--- OUTSIDE RECORDS SUMMARY | 2024-12-20 10:02 | XMS_ITS | Patient Health Record ---
Author Organization [facility] Address [address] [place] [address] Care Team Providers Care Store Clerk Name Role Phone Jonny Lam MD Primary Care Provider Zachariah Gilliland Unavailable [phone] Allergies Allergen (clinical drug ingredient) Drug/Non Drug [...] Problem Status W/U Status Risk Notes Problem 021894444 Encounter for screening for malignant neoplasm of colon (Z12.11) Active confirmed Problem 028658410 Helicobacter pyl urban ab+ (R76.8) Active confirmed Problem Lesion of liver (185353229) Liver lesion (K76.9) Active confirmed Problem 231914319 Hx of adenomatou s colonic polyps (Z86.010) Active confirmed Problem Abnormal findings diagnostic imaging of liver and biliary tract (003601858) Abnormal MRI, liver (R93.2) Active confirmed Problem Esophageal reflux finding (255595290) Gastroesophageal reflux (K21.9) Active confirmed Problem 177619278 Abdominal discomfort, epigastric (R10.13) Active confirmed Problem Pancreatic duct disorder (879323746) 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 Problem Diverticulosis of colon (722969750) Diverticulosis of colon (K57.30) Active confirmed Problem 775432385 Gastroesophageal reflux disease, unspecified whether esophagitis present [...] Insured Coverage Start Date Coverage End Date [facility] [address] [place] [address] [id number] ORIN BORJA Self - patient is the insured MEDICAID OF [facility] [address] [place] [address] [id number] ORIN BORJA Self - patient is the insured Medical (General) History Medical History History ICD Code HTN Denies [place],DM,CVA,Lung disease,renal dise ase Glaucoma Neg colonoscopy in [...]
== END 2024-12-20 09:58 | disposition home or self-care (01) ==
LOC: HO.HMCH 09:13
PROVIDERS: PCP Internal Medicine; Visit Provider Internal Medicine
DX: I25.2 Old myocardial infarction (principal); E11.9 Type 2 diabetes mellitus without complications; E66.3 Overweight; Z68.28 Body mass index [BMI] 28.0-28.9, adult; E78.00 Pure hypercholesterolemia, unspecified; I10 Essential (primary) hypertension; K29.70 Gastritis, unspecified, without bleeding; D69.6 Thrombocytopenia, unspecified; E55.9 Vitamin D deficiency, unspecified; H40.9 Unspecified glaucoma; G47.00 Insomnia, unspecified; F41.9 Anxiety disorder, unspecified

== ENCOUNTER → 2024-12-20 09:12 | Outpatient (BNVA) | payer MEDICARE, MEDICAID, SELFPAY | PROVIDERS: PCP Internal Medicine; Visit Provider Internal Medicine | DX: I10 Essential (primary) hypertension (principal); I21.4 Non-ST elevation (NSTEMI) myocardial infarction; E78.00 Pure hypercholesterolemia, unspecified; E11.9 Type 2 diabetes mellitus without complications; K29.70 Gastritis, unspecified, without bleeding; D69.6 Thrombocytopenia, unspecified; E55.9 Vitamin D deficiency, unspecified; H40.9 Unspecified glaucoma; G47.00 Insomnia, unspecified; F41.9 Anxiety disorder, unspecified; E66.3 Overweight; Z68.28 Body mass index [BMI] 28.0-28.9, adult | CPT/HCPCS: 96127; 99212 ==

== ENCOUNTER 2025-01-22 12:09 | Outpatient (AMB) | payer MEDICARE, MEDICAID, SELFPAY ==
--- NOTE | 2025-01-22 12:26 | A.OFFVIS_ITS ---
VS Expanded 01/22/25 12:36 Height 5 ft 3 in Weight 165 lb 2.02 oz BMI 29.2 Intake Visit Reasons: T2DM Allergies Penicillins (PENICILLINS) Allergy (Mild, Verified 12/20/24 09:46) HIVES,RASH Nutrition Presentation Details: Pt presents for MNT f/u for T2DM Pt reports doing well reports noticing upset stomach when having milk , choosing fat free milk food frequency fish : 1-2 x/wk fruits: 1-2/d vegetables 2/xwk milk: 1-2/d starches: working on choosing whole grains B: oatmeal wtih peanut butter or with banana L : apple dinner: fish,brown rice, beans, water snack: fruits, crackers reports increased wt due to eating away from home most recent A1c at 6.1% on 12/16 BS Monitoring Most Recent Diabetes Results: Microalb/Creat Ratio, (<30) 7.5 ug/mg cr 08/01/24 Cholesterol, (<200) 128 mg/dL 12/12/24 HDL Cholesterol, (>40) 49 mg/dL 12/12/24 Triglycerides, (<150) 78 mg/dL 12/12/24 Creatinine, (0.5-1.4) 0.91 mg/dL 12/12/24 BUN, (9-16) 19 mg/dL H 12/12/24 Sodium, (135-145) 140 mmol/L 12/12/24 Potassium, (3.3-5.1) 4.5 mmol/L 12/12/24 Chloride, (96-108) 109 mmol/L H 12/12/24 Carbon Dioxide, (22-29) 24 mmol/L 12/12/24 Calcium, (8.4-10.2) 9.4 mg/dL 12/12/24 AST, (5-31) 33 U/L H 12/12/24 ALT, (0-31) 27 U/L 12/12/24 Total Protein, (6.5-8.0) 7.3 g/dL 12/12/24 Albumin, (3.5-5.0) 4.4 g/dL 12/12/24 [facility] Medical History Cataract Low back pain Post-menopausal Overweight (BMI 25.0-29.9) Anxiety Glaucoma of both eyes Vitamin D deficiency Thrombocytopenia Gastritis Type 2 diabetes mellitus without complication, with no history of insulin use Pure hypercholesterolemia Benign essential hypertension NSTEMI (non-ST elevated myocardial infarction) Surgical History History of cataract surgery Hx of section S/P cardiac catheterization (~2018) History of colonoscopy Family History Father CVD (cardiovascular disease) Mother CVD (cardiovascular disease) Brother CVD (cardiovascular disease) Social History Housing: House Alcohol intake: never Patient Tobacco Use Status: Never used Tobacco e-Cigarette/Vaping Use: Never Used Second Hand Smoke Exposure: Yes service: No Current occupational status: disabled Cognitive needs: No Hearing needs: Yes Vision needs: Yes Assessment & Plan Assessment & Plan (1) Type 2 diabetes mellitus without complication, with no history of insulin use: Code(s): E11.9 - Type 2 diabetes mellitus without complications Category: Medical Plan: Used wt: 73kg( 08/16), 77 kg (10 Est kcal needs as per 25 kcal/kg bw: 1875 (40% carb, 30% protein/fat) Est fluid needs as per 25-30 ml/d: 1875- 2250 Est prot per day as per 1 g/kg bw: 75 g/d Recommend fiber intake : 8-10 g per day and gradually increase to 25-28 g per day for women or as tolerated Recommend sodium intake per day : less than 2000 mg Educated patient on: ( R = reviewed V = verbalizes understanding N/R = needs review N/A = not applicable * Food sources of carbohydrate, adequate serving sizes and its role in various health conditions: R * Differences between complex carbohydrates a simple carbohydrates, role of fiber in diet: R * Differences between types of fats and role in diet (mono on saturated fat fatty acids, saturated fatty acids, trans fats): R * Food sources of sodium in salt and healthy modifications for heart health in kidney health: R, info provided * Vitamins and minerals: R , iron rich foods * Healthy plate method concept: R * Physical activity: Benefits a precaution: R * Hypoglycemia protocol (rule of 15): R, * Dietary prevention of Hyperglycemia: R Patient Instructions: Switch to fairlife milk fat , 1-2 cups/day follow healthy plate method at dinner time Coding Level of Care Code Nutr Indiv Subseq (53247) Diagnoses Type 2 diabetes mellitus without complication, with no history of insulin use E11.9 Time Spent (min) 30
[2025-01-22 12:36] VITALS: BMI 29.2
== END 2025-01-22 13:08 | disposition home or self-care (01) ==
LOC: HO.ENCR 12:10
PROVIDERS: PCP Internal Medicine; Visit Provider Dietitian, Registered
DX: E11.9 Type 2 diabetes mellitus without complications (principal)

== ENCOUNTER → 2025-01-22 12:09 | Outpatient (BNVA) | payer MEDICARE, MEDICAID, SELFPAY | PROVIDERS: PCP Internal Medicine; Visit Provider Dietitian, Registered | DX: E11.9 Type 2 diabetes mellitus without complications (principal); K30 Functional dyspepsia; E66.3 Overweight; Z68.29 Body mass index [BMI] 29.0-29.9, adult; Z71.3 Dietary counseling and surveillance | CPT/HCPCS: 97803 ==

== ENCOUNTER 2025-04-18 08:10 | Outpatient (REF) | payer MEDICARE, MEDICAID, SELFPAY ==
--- OUTSIDE RECORDS SUMMARY | 2025-04-18 08:13 | XMS_ITS | Patient Health Record ---
Author Organization [facility] Address [address] [place] [address] Care Team Providers Care Director Phone Name Role Phone Jonny Lam MD Primary Care Provider Zachariah Gilliland [phone] Allergies Allergen (clinical drug ingredient) Drug/Non Drug Allergy documented on EMR Reaction Allergy Type Onset Date Status Penicillin Unknown Drug Allergy Active Reason For Referral No Information Medications Medication SIG (Take, Route, Frequency, Duration) Notes Start Date End Date Status Januvia 100 MG Tablet Oral; Duration: 90 Active Losartan Potassium-HCTZ 100-25 MG Tablet 1 tablet Orally Once a day; Duration: 30 day(s) Active amLODIPine Besylate 2.5 MG Tablet TAKE 1 TABLET BY MOUTH DAILY Oral; Duration: 90 Active Atorvastatin Calcium 40 MG Tablet 1 tablet Orally Once a day; Duration: 30 day(s) Active Carvedilol 6.25 MG Tablet 1 tablet with food Orally Twice a day; Duration: 30 day(s) Active amLODIPine Besy-Benazepril HCl 2.5-10 MG Capsule as directed Orally Active metFORMIN HCl 500 MG Tablet 1 tablet wit h a meal Orally Once a day; Duration: 30 day(s) Active Immunizations Vaccine Route Administration Date Status Comme nts Influenza Unknown 02/10/2021 Administered Influenza Unknown 01/22/2022 Administered Social History Social History Additional Details Category Social Info Options Details Miscellaneous: Marital status: Occupation: retired Section Notes: Nonsmoker; no significant al cohol Nonsmoker; no significant al cohol Nonsmoker; no significant al cohol Nonsmoker; no significant al cohol Nonsmoker; no significant al cohol Problems Problem Type SNOMED Code ICD Code Onset Dates Problem Status W/U Status Risk Notes Problem Screening for malignant neoplasm of colon (093582822) Encounter for screening for malignant neoplasm of colon (Z12.11) Active confirmed Problem Helicobacter serology positive (467238864) Helicobacter pylori ab+ (R76.8) Active confirmed Problem Lesion of liver (853648298) Liver lesion (K76.9) Active confirmed Problem History of adenomatous polyp of colon (214879431) Hx of adenomatous colonic polyps (Z86.010) Active confirmed Problem Abnormal findings diagnostic imaging of liver and biliary tract (185019389) Abnormal MRI, liver (R93.2) Active confirmed Problem Esophageal reflux finding (120463895) Gastroesophageal reflux (K21.9) Active confirmed Problem Epigastric pain (35260192) Abdominal discomfort, epigastric (R10.13) Active confirmed Problem Pancreatic duct disorder (948115585) 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 Problem Diverticulosis of colon (749094540) Diverticulosis of colon (K57.30) Active confirmed Problem Gastroesophageal reflux disease (056041655) Gastroesophageal reflux disease, unspecified whether esophagitis present (K21.9) Active confirmed Plan Of Treatment Pending Test Test Name Order Date BUN 02/22/2022 BUN 09/26/2021 CREATININE 09/26/2021 CREATININE 02/22/2022 LIVER PROFILE 09/26/2021 [...] Insured Coverage Start Date Coverage End Date [facility] [address] [facility] [place] [id number] ORIN BORJA Self - patient is the insured MEDICAID OF [employer] [address] [facility] [phone] [id number] ORIN BORJA Self - patient is the insured Medical (General) History Medical History History ICD Code HTN Denies [place],DM,CVA,Lung disease,renal dise ase Glaucoma Neg colonoscopy in 08/2004 ex cept for a hyperplastic polyp, diverticulosis, and int. hemorrhoids Hyperlipidemia--on diet Positive H.pylori serology in 10/2013--no t treated--she was asymptomatic Negative abdominal ultrasound in November of 2013 Colonoscopy 04/2015 with a small tubular adenoma removed GERD--upper endoscopy in August of 2021 revealed only a small hiatal hernia but no evidence of esophagitis or Benltey's esophagus Colonoscopy in August of 2021 r [...]
[2025-04-18 09:38] LABS: Hemoglobin 12.1 g/dl (12.0-16.0); NRBC Abs Auto 0.000 X10*3/uL (0.0-0.012); NRBC Pct Auto 0.0 /100WBC (0.0-0.2); SCAN SMEAR FLAG 1
[2025-04-18 09:40] LABS: Hematocrit 39.4 % (37.0-47.0); Imm Gran Abs Auto 0.02 X10*3/uL (0.00-0.03); Imm Gran Pct Auto 0.3 % (0.0-0.4); Lymphocytes Absolute Auto 1.7 X10*3/uL (1.2-4.9); MANUAL DIFF FLAG SCAN; Mean Corpuscular HGB Conc 30.7 g/dl (31.0-35.0); Mean Corpuscular Hemoglobin 29.6 pg (27.0-33.0); Mean Corpuscular Volume 96.3 fL (80.0-98.0); PLT CLUMP 1; Red Blood Count 4.09 X10*6/uL (4.20-5.50)
[2025-04-18 09:45] LABS: PLT ABN DIST 1
[2025-04-18 10:09] LABS: Appearance Urine Clear; Glucose Urine UA Negative (Negative); PH 5.0 (5.0-9.0); Specific Gravity - Urine 1.015 (1.005-1.025); UMIC TRIGGER UACC YES
[2025-04-18 10:13] LABS: UACC Culture Trigger YES
[2025-04-18 10:17] LABS: Platelet Count 124 X10*3/uL (160-400); White Blood Count 6.8 X10*3/uL (4.8-10.8)
[2025-04-18 10:18] LABS: Alanine Aminotransferase 26 U/L (0-31); Albumin Level 4.3 g/dL (3.5-5.0); Alkaline Phosphatase 84 U/L (39-117); Anion Gap 13 (12-20); Aspartate Amino Transferase 34 U/L (5-31); Blood Urea Nitrogen 19 mg/dL (9-16); Calcium 9.3 mg/dL (8.4-10.2); Carbon Dioxide 21 mmol/L (22-29); Chloride 111 mmol/L (96-108); Cholesterol 114 mg/dL (<200); Estimated Glomerular Filt Rate > 60; HDL Cholesterol 49 mg/dL (>40); Potassium 4.3 mmol/L (3.3-5.1); Sodium 141 mmol/L (135-145); Total Protein 7.1 g/dL (6.5-8.0); Triglycerides 65 mg/dL (<150)
[2025-04-18 11:01] LABS: Microalbum/Creatinine Ratio Ur 6.3 ug/mg cr (<30)
== END 2025-04-18 08:11 | disposition home or self-care (01) ==
LOC: HO.LAB 08:10
PROVIDERS: PCP Internal Medicine; Visit Provider Internal Medicine
DX: E11.9 Type 2 diabetes mellitus without complications (principal); D64.9 Anemia, unspecified; E78.00 Pure hypercholesterolemia, unspecified; E55.9 Vitamin D deficiency, unspecified; R30.0 Dysuria
CPT/HCPCS: 36415; 80053; 80061; 81001; 81003; 82043; 82306; 82570; 83036; 84443; 85025; 87086